=== PATIENT | male | born 1940 | race Caucasian/White ===

== ENCOUNTER → 2019-04-15 | Outpatient (CLI) | payer SELFPAY | PROVIDERS: Family Provider Family Medicine; Visit Provider Urology | DX: I87.8 Other specified disorders of veins (principal); M16.0 Bilateral primary osteoarthritis of hip | CPT/HCPCS: 74018 ==

== ENCOUNTER → 2019-04-23 09:12 | Outpatient (BNVA) | payer MEDICARE, OTHER, SELFPAY | PROVIDERS: Family Provider Family Medicine; PCP Family Medicine; Visit Provider Internal Medicine Cardiovascular Disease | DX: E78.5 Hyperlipidemia, unspecified (principal) | CPT/HCPCS: 80061 ==

== ENCOUNTER → 2019-05-19 16:31 | Outpatient (BNVA) | payer MEDICARE, OTHER, SELFPAY | PROVIDERS: Family Provider Family Medicine; PCP Family Medicine; Visit Provider Family Medicine | DX: M25.512 Pain in left shoulder (principal); M19.012 Primary osteoarthritis, left shoulder | CPT/HCPCS: 73030 ==

== ENCOUNTER → 2019-08-13 11:18 | Outpatient (BNVA) | payer MEDICARE, OTHER, SELFPAY | PROVIDERS: Family Provider Family Medicine; PCP Family Medicine; Visit Provider Family Medicine | DX: E78.2 Mixed hyperlipidemia (principal); I10 Essential (primary) hypertension; E78.5 Hyperlipidemia, unspecified; K21.9 Gastro-esophageal reflux disease without esophagitis; N40.0 Benign prostatic hyperplasia without lower urinary tract symptoms | CPT/HCPCS: 80053; 80061; 85025 ==

== ENCOUNTER → 2020-03-16 09:57 | Outpatient (BNVA) | payer MEDICARE, OTHER, SELFPAY | PROVIDERS: Family Provider Family Medicine; PCP Family Medicine; Visit Provider Family Medicine | DX: I10 Essential (primary) hypertension (principal); E78.2 Mixed hyperlipidemia | CPT/HCPCS: 80053; 80061; 84443; 85025 ==

== ENCOUNTER 2020-07-14 06:00 | Outpatient (RCR) | payer MEDICARE, SELFPAY | END 2020-07-14 23:59 | disposition home or self-care (01) | LOC: TPT 06:00 | PROVIDERS: Family Provider Family Medicine; PCP Family Medicine; Referring Provider Family Medicine; Visit Provider Family Medicine | DX: M54.32 Sciatica, left side (principal) | CPT/HCPCS: 97161 ==

== ENCOUNTER 2020-07-15 06:00 | Outpatient (RCR) | payer MEDICARE, SELFPAY | END 2020-08-04 23:00 | disposition home or self-care (01) | LOC: TPT 06:00 | PROVIDERS: Family Provider Family Medicine; PCP Family Medicine; Referring Provider Family Medicine; Visit Provider Family Medicine | DX: M54.32 Sciatica, left side (principal) | CPT/HCPCS: 97110 ==

== ENCOUNTER → 2020-09-22 10:58 | Outpatient (BNVA) | payer MEDICARE, SELFPAY | PROVIDERS: Family Provider Family Medicine; PCP Family Medicine; Visit Provider Family Medicine | DX: E78.2 Mixed hyperlipidemia (principal); I10 Essential (primary) hypertension; I25.810 Atherosclerosis of coronary artery bypass graft(s) without angina pectoris | CPT/HCPCS: 80053; 80061; 85025 ==

== ENCOUNTER 2020-10-14 08:30 | Outpatient (CLI) | payer MEDICARE, SELFPAY ==
--- NOTE | 2020-10-14 08:45 | XR_ITS ---
WS: [id number] KUB, AP view, 10/14/2020 Clinical Data: HX OF KIDNEY STONES Comparison: KUB, 04/15/2019. Findings: No abnormal intraabdominal masses or calcifications are seen. There is no dilatated small bowel or ev idence of obstruction. There are phleboliths in the true pelvis. There is a large amount of fecal material in the colon which obscures detail over both kidneys. There are right upper quadrant calcifications which are probably gallstones. There are clips overlying the left upper quadrant. There is a tube overlying the T10 vertebral body. Degenerative changes of the l umbar spine are moderate. 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 XR/XR KUB [id number] Impression: Negative for renal or ureteral calculi.
== END 2020-10-14 08:31 | disposition home or self-care (01) ==
PROVIDERS: PCP Family Medicine; Visit Provider Urology
DX: Z87.442 Personal history of urinary calculi (principal)
CPT/HCPCS: 74018

== ENCOUNTER → 2021-01-20 16:19 | Outpatient (BNVA) | payer MEDICARE, SELFPAY | PROVIDERS: PCP Family Medicine; Visit Provider Family Medicine | DX: E78.2 Mixed hyperlipidemia (principal); I10 Essential (primary) hypertension; K21.9 Gastro-esophageal reflux disease without esophagitis; N40.0 Benign prostatic hyperplasia without lower urinary tract symptoms; E78.5 Hyperlipidemia, unspecified; N40.1 Benign prostatic hyperplasia with lower urinary tract symptoms; R33.8 Other retention of urine; Z23 Encounter for immunization | CPT/HCPCS: 80053; 80061; 84443; 85025; G0103 ==

== ENCOUNTER → 2021-08-01 09:23 | Outpatient (BNVA) | payer MEDICARE, SELFPAY | PROVIDERS: PCP Family Medicine; Visit Provider Family Medicine | DX: I10 Essential (primary) hypertension (principal); E78.2 Mixed hyperlipidemia; K21.9 Gastro-esophageal reflux disease without esophagitis; N40.0 Benign prostatic hyperplasia without lower urinary tract symptoms; F32.9 Major depressive disorder, single episode, unspecified; B35.1 Tinea unguium | CPT/HCPCS: 85025 ==

== ENCOUNTER → 2021-08-05 09:41 | Outpatient (BNVA) | payer MEDICARE, SELFPAY | PROVIDERS: PCP Family Medicine; Visit Provider Family Medicine | DX: E78.5 Hyperlipidemia, unspecified (principal); I10 Essential (primary) hypertension | CPT/HCPCS: 80053; 80061; 84443 ==

== ENCOUNTER 2021-10-18 06:00 | Outpatient (CLI) | payer MEDICARE, SELFPAY | END 2021-10-18 06:01 | disposition home or self-care (01) | LOC: RAD 01-23 20:58 | PROVIDERS: PCP Family Medicine; Visit Provider Urology | DX: Z87.442 Personal history of urinary calculi (principal); N40.1 Benign prostatic hyperplasia with lower urinary tract symptoms; R33.8 Other retention of urine | CPT/HCPCS: 74018; 81003; 99213 ==

== ENCOUNTER → 2021-10-18 09:11 | Outpatient (BNVA) | payer MEDICARE, SELFPAY | PROVIDERS: PCP Family Medicine; Visit Provider Urology | DX: N40.1 Benign prostatic hyperplasia with lower urinary tract symptoms (principal); Z87.442 Personal history of urinary calculi; R33.8 Other retention of urine | CPT/HCPCS: 99213 ==

== ENCOUNTER 2021-10-25 09:57 | Outpatient (CLI) | payer MEDICARE, SELFPAY ==
--- NOTE | 2021-10-25 10:16 | XR_ITS ---
WS: [id number] Sacrum and coccyx, 3 views, 10/25/2021 Clinical Data: M54.40 - Lumbago with sciatica, unspecified side Comparison: None. Findings: No fractures or dislocations are seen. The SI joints and pubic symphysis are unremarkable. No bone de struction or erosion is seen. There are phleboliths in the true pelvis. XR/XR sacrum coccyx min 2V 23625 Impression: Negative sacrum and coccyx.
--- NOTE | 2021-10-25 10:16 | XR_ITS ---
WS: [email or web address] Lumbar spine, 3 views, 10/25/2021 Clinical Data: M54.40 - Lumbago with sciatica, unspecified side Comparison: Lumbar spine, 11/29/2015. Findings: No compression fractures or subluxation is seen. No disc space narrowing is seen. The transverse proc esses and SI joints are normal. There is abundant anterior osteoarthritic spurring from the lower thoracic vertebral bodies and L1-L5 . Facet joint arthritis is present at L2-L3 and L5-S1. XR/XR lumbar spine 2-3V* [id number] Impression: 1. Severe osteoarthritis L-1-L5. 2. Facet joint arthritis at multiple levels.
== END 2021-10-25 09:58 | disposition home or self-care (01) ==
PROVIDERS: PCP Family Medicine; Visit Provider Family Medicine
DX: M47.896 Other spondylosis, lumbar region (principal); M54.40 Lumbago with sciatica, unspecified side
CPT/HCPCS: 72100; 72220

== ENCOUNTER 2021-12-02 13:46 | Outpatient (CLI) | payer MEDICARE, SELFPAY ==
--- NOTE | 2021-12-02 15:15 | MR_ITS ---
WS: [email or web address] INDICATION: Low back pain. LEFT hip pain. TECHNIQUE: MRI of the sacrum without gadolinium enhancement. Sagittal T2, coronal T1, coronal STIR, a xial T2, coronal STIR. FINDINGS: Normal bone marrow signal in the sacrum. Normal sacral ala. Normal bone marrow signal sacro coccygeal junction. Enlarged nodular heterogeneous prostate measuring 4.6 x 6.2 x 5.2 cm AP by transv erse by craniocaudal. Prominent bilateral seminal vesicles. Impingement on the bladder with bladder o utlet obstruction. Findings suspicious for neoplasia. Recommend correlation with PSA. MR/MR sacrum wo con* [id number] IMPRESSION: 1. Normal bone marrow signal in the sacrum. Normal sacral ala. No sacral insuf ficiency fractures. 2. Enlarged nodular heterogeneous prostate measuring 4.6 x 6.2 x 5.2 cm AP by transverse by craniocaudal. 3. Evidence of bladder outlet obstruction.
== END 2021-12-02 13:47 | disposition home or self-care (01) ==
PROVIDERS: PCP Family Medicine; Visit Provider Family Medicine
DX: M54.40 Lumbago with sciatica, unspecified side (principal); N40.0 Benign prostatic hyperplasia without lower urinary tract symptoms
CPT/HCPCS: 72148

== ENCOUNTER 2021-12-02 13:46 | Outpatient (CLI) | payer MEDICARE, SELFPAY ==
--- NOTE | 2021-12-02 14:30 | MR_ITS ---
WS: [id number] MRI LUMBAR SPINE NONCONTRAST TECHNIQUE: Sagittal T1, T2 and STIR imaging. Axial T1 and T2 imaging. CLINICAL INFORMATION: M54.40 - Lumbago with sciatica, unspecified side COMPARISON: MRI June 09, 2015 FINDINGS: Mild lumbar curve. No acute compression. Slight anterolisthesis L4 on L5. Moderate central canal sten osis L2-L3 slightly progressed compared to 2016. Small RIGHT synovial cyst contributes to stenosis. L1-L2: Moderate facet arthropathy. Spinal canal and foramen are patent. L2-L3: Mild disc bulging and moderate facet arthropathy. Small RIGHT synovial cyst. Moderate central canal stenosis. Narrowing subarticular recess bilaterally. RIGHT synovial cyst measures 7 mm. Mild RI GHT greater than LEFT foraminal narrowing. L3-L4: Mild disc bulging. Mild facet arthropathy. Mild central canal stenosis. Slight impingement sub articular recess bilaterally. Mild LEFT foraminal narrowing. Tiny annular fissure. Moderate facet art hropathy. L4-L5: Grade 1 anterolisthesis. Moderate to advanced facet arthropathy. Small facet effusions. LEFT h emilaminectomy new from previous. Mild bilateral foraminal narrowing. Tiny LEFT synovial cyst. Mild n arrowing of the subarticular recess bilaterally. L5-S1: Mild annular bulging. Moderate facet arthropathy. Spinal canal and foramen are patent. Visualized pelvic bony structures: Normal. Paravertebral soft tissues: Normal. Small LEFT renal cyst MR/MR lumbar spine wo con* [id number] IMPRESSION: 1. Mild lumbar curve. No acute compression. 2. Moderate central canal stenosis L2-L3 with a tiny RIGHT synovial cyst progr essed compared to previous. 3. Laminectomy defects L4-L5 with spinal canal decompression is new from previ ous. 4. Moderate to advanced facet arthropathy L4-L5 and L5-S1. 5. Mild central canal stenosis L3-L4. This is slightly progressed compared to previous.
== END 2021-12-02 13:47 | disposition home or self-care (01) ==
PROVIDERS: PCP Family Medicine; Visit Provider Family Medicine
DX: M54.40 Lumbago with sciatica, unspecified side (principal); M48.061 Spinal stenosis, lumbar region without neurogenic claudication; M47.816 Spondylosis without myelopathy or radiculopathy, lumbar region; M96.1 Postlaminectomy syndrome, not elsewhere classified; N40.0 Benign prostatic hyperplasia without lower urinary tract symptoms
CPT/HCPCS: 72148

== ENCOUNTER → 2021-12-13 10:19 | Outpatient (BNVA) | payer MEDICARE, SELFPAY | PROVIDERS: PCP Family Medicine; Visit Provider Orthopaedic Surgery | DX: M48.062 Spinal stenosis, lumbar region with neurogenic claudication (principal); M47.812 Spondylosis without myelopathy or radiculopathy, cervical region | CPT/HCPCS: 72120; 99204 ==

== ENCOUNTER 2021-12-30 06:02 | Day surgery (SDC) | payer MEDICARE, SELFPAY ==
--- NOTE | 2021-12-28 09:03 | ECG_ITS ---
[facility] Test Date: 2021-12-28 Pat Name: Carlo Dalton Department: Room: Gender: Male Ophthalmic Aide: : 1940 Requested By: Natali Ralph Order Number: [id number] Josiah MD: Humberto Prince M.D. Measurements Intervals [place] Rate: 66 P: 35 MO: 120 QRS: -39 QRSD: 99 T: 10 QT: 383 QTc: 402 Interpretive Statements SINUS RHYTHM WITH OCCASIONAL SUPRAVENTRICULAR PREMATURE COMPLEXES POSSIBLE ANTERIOR MYOCARDIAL INFARCTION , OF INDETERMINATE AGE [30 ms Q WAVE IN V3/V4, OR R < 0.2 mV IN V4] INFERIOR MYOCARDIAL INFARCTION , PROBABLY OLD [40+ ms Q WAVE AND/OR ST/T ABNORMALITY IN II/aVF] Compared to ECG 08/09/2018 16:04:28 Myocardial infarct finding now present Sinus bradycardia no longer present Left-axis deviation no longer present Electronically Signed On 12-29-2021 10:43:39 CDT by Humberto Prince M.D. [id number]
[2021-12-28 09:33] LABS: Blood Urea Nitrogen 20 mg/dL (8-23); Carbon Dioxide 24 mmol/L (22-29); Chloride 108 mmol/L (98-107); Glucose 104 mg/dL (65-115); Osmolality Calculated 299 mOsm/kg (285-295); Sodium 143 mmol/L (136-145)
--- NOTE | 2021-12-28 15:55 | ANES.PREANE2 ---
Pre-Anesthetic Assessment Height/Weight: Height 1.83 m Weight 111.13 kg Preop Diagnosis: Lumbar stenosis Operation Date: 12/30/21 10:00 Proposed Procedures p Lumbar Spine Decompression L3/4 L4/5 86930/49372/M48.062(Not Applicable) - Shahab Morales, Familial anesthetic complications: None Was Beta Stephon taken within 24 hours: N/A Was Clonidine taken within 24 hours: N/A Social No alcohol and No tobacco Exam alert, oriented x 3, clear to auscultation bilaterally and regular rate & rhythm Airway Submandibular: within normal limits Cervical ROM: Other (Very limited neck ROM in extension/flexion and rotation ) Mallampati: Class II Dentition: chipped Comments: Comments: Missing teeth Deviated septum Pulmonary None reported CV/HEM Arrythmia (Bradyarrythmia ), Coronary Artery Disease and Hypertension S/P CABG 2008 METS = 4 BPH Nephrolithiasis Hepatic None reported GI Gastroesophageal Reflux Disease (Well Controlled ) Musc/skel Lower Back Pain and Osteoarthritis/DJD Lumbar stenosis Neuropsych None reported Anesthetic Plan ASA status: 3 Anesthesia: Anesthesia Evaluation and General Other: We discussed risk and benefits of general anesthesia including PONV, sore throat (sometimes severe), corneal abrasion, positioning and peripheral nerve injuries, life threatening allergic reaction, post operative ICU admission requiring prolonged intubation, post operative blindness, aspiration, stroke, heart attack, , and rare incidences of recall. Patient consents to proceed with general anesthesia. Plan GETA, possible arterial line Risk of > 500 ml blood loss (7ml/kg in children): No Medications/Allergies Home Medications Medication Instructions Recorded Confirmed Last Taken Type nitroglycerin 0.4 mg sublingual 0.4 mg sublingual Q5M PRN chest 02/16/20 12/28/21 Unknown Rx tablet (Nitrostat) pain #90 tabs cholecalciferol (vitamin D3) 125 125 mcg PO DAILY 04/25/21 12/28/21 Unknown History mcg (5,000 unit) capsule vit C,E,zinc,copper-zvmoz5v 250 1 cap PO DAILY 04/25/21 12/28/21 Unknown History mg-lutein 5 mg-zeaxanthin 1 mg capsule (Ocuvite Adult 50 Plus) atorvastatin 40 mg tablet See Rx Instructions .Route 07/08/21 12/28/21 Unknown Rx .COMPLEX #90 tabs famotidine 20 mg tablet See Rx Instructions .Route 10/10/21 12/28/21 Unknown Rx .COMPLEX #180 tabs ascorbic acid (vitamin C) 1,000 mg 1 g PO DAILY 10/18/21 12/28/21 Unknown History tablet lisinopril 20 mg tablet 20 mg PO DAILY #90 tabs 10/18/21 12/28/21 Unknown Rx zinc acetate 25 mg (zinc) capsule 50 mg PO DAILY 10/18/21 12/28/21 Unknown History clopidogrel 75 mg tablet 75 mg PO DAILY 12/28/21 12/28/21 12/24/21 History fenofibrate nanocrystallized 145 145 mg PO DAILY 12/28/21 12/28/21 Unknown History mg tablet finasteride 5 mg tablet 5 mg PO BID 12/28/21 12/28/21 Unknown History fluvoxamine 100 mg tablet 100 mg PO TID 12/28/21 12/28/21 Unknown History folic acid-vit B6-vit B12 2.5 1 tab PO DAILY 12/28/21 12/28/21 Unknown History mg-25 mg-1 mg tablet (Folbee) tamsulosin 0.4 mg capsule 0.4 mg PO BID 12/28/21 12/28/21 Unknown History Allergies Allergy/AdvReac Type Severity Reaction Status Date / Time No Known Allergies Allergy Verified 12/13/21 10:03 [facility] Anesthesia Medical History Arthritis Atherosclerotic heart disease Benign prostate hyperplasia Benign prostatic hyperplasia with urinary retention Bradyarrhythmia Cataract right 2013 Degenerative lumbar spinal stenosis Depression GERD (gastroesophageal reflux disease) History of kidney stones Hyperlipidemia The EKG from last visit revealed ectopic atrial rhythm with a rate of [address]-T changes. Slightly prominent U waves. Hypertension Incomplete bladder emptying Increased prostate specific antigen (PSA) velocity Macrocytosis without anemia Orthostatic hypotension Ventricular arrhythmia Surgical History H/O laminectomy 2015 H/O shoulder surgery 2010, 2013 History of tonsillectomy Hx of CABG 2008 Family History Mother Heart disease Chronic kidney disease (CKD) Grandmother CAD (coronary artery disease) Stroke Grandfather Lung disease Family/Other Lung disease Denies family history of Diabetes Clotting disorder Dementia Suicide Anesthesia complication Bleeding disorder Cancer Social History Smoking and tobacco status: never smoked Alcohol intake: never Household members: spouse Housing: House Marital status: service: Yes Current occupational status: retired Current gender identity: Male Data Anesthesia : 12/28/21 08:53 BMP 12/28/21 08:53 Sodium 143 Potassium 4.0 Chloride 108 H Carbon Dioxide 24 BUN 20 Creatinine 1.1 Glucose 104 Calcium 9.0 Cardiac Studies: No Data to Display
[2021-12-30] VITALS (7 sets, daily range): BP systolic 110–140; BP diastolic 60–86; PULSE 62–89; RESP 15–20; TEMP 36.3–36.8; O2SAT 94–97
--- NOTE | 2021-12-30 | SCC_ITS ---
Procedure done: 1. L3/4 laminectomy with partial facetectomy 2. L4/5 laminectomy with partial facetectomy 31.0 seconds of fluoroscopic guidance, for a cumulative dose of 28.35 mGy, was provided to Dr. Morales by the radiology department. C-arm images of the lumbar spine were saved for the patient's permanent record. [facility]
--- NOTE | 2021-12-30 | XR_ITS ---
WS: [id number] Lumbar spine, C-arm fluoroscopy, 12/30/2021 Clinical Data: L3-L4, L4-L5 decompression Comparison: Lateral lumbar spine, 12/13/2021. Findings: Dr. Morales performed a posterior lumbar decompression XR/XR lumbar spine 1V [id number] Impression: Lumbar decompression.
[2021-12-30] MEDS: sodium chloride 0.9% 1,000 ML 30 ML IV (06:32)
[2021-12-30 06:56] LABS: Basophils # 0.1 10^3/uL (0.0-0.1); Basophils % 0.9 %; Eosinophils # 0.3 10^3/uL (0.0-0.8); Eosinophils % 3.2 %; Hematocrit 44.1 % (42.0-52.0); Hemoglobin 14.9 g/dL (11.7-16.6); Lymphocytes # 2.4 10^3/uL (0.8-4.8); Lymphocytes % 25.2 %; Mean Corpuscular HGB Conc 33.8 g/dL (30.0-36.0); Mean Corpuscular Hemoglobin 34.2 pg (28.0-34.0); Mean Corpuscular Volume 101.1 fl (80-94); Mean Platelet Volume 11.4 fL (7.4-10.4); Monocytes % 10.4 %; Neutrophils # 5.68 10^3/uL (1.8-7.7); Nucleated Red Blood Cells % 0 %; Platelet Count 240 10^3/cmm (130-400); Red Blood Count 4.36 10^6/uL (4.1-5.3); Red Cell Distribution Width 14.3 % (12.1-15.1); White Blood Count 9.5 10^3/uL (4.0-10.0)
[2021-12-30] MEDS: ceFAZolin 2,000 MG in sodium chloride 0.9% (plus) 50 ML 100 MG IV (08:44)
--- NOTE | 2021-12-30 08:53 | W.PM.OPSUD ---
Surgery/Procedure H&P Update DATE OF PROCEDURE: December 30, 2021 DATE H&P PERFORMED: 12/13/21 H&P UPDATE INFORMATION: I have reviewed H&P completed within last 30 days, I have examined patient prior to procedure and No changes to prior documentation PREOP DIAGNOSIS: Lumbar stenosis with neurogenic claudication PLANNED PROCEDURE: Operation Date: 12/30/21 08:00 Proposed Procedures p Lumbar Spine Decompression L3/4 L4/5 04279/91407/M48.062(Not Applicable) - Shahab Morales DO
[2021-12-30] MEDS: thrombin 5,000 unit SDV 5000 UNIT XX (09:14)
--- NOTE | 2021-12-30 10:10 | PM.OP ---
Operative Report Date of procedure: December 30, 2021 Pre-op diagnosis: Preop Diagnosis Lumbar stenosis with neurogenic claudication Post-op diagnosis: same Procedure done: 1. L3/4 laminectomy with partial facetectomy 2. L4/5 laminectomy with partial facetectomy Surgeon: Shahab Morales Rubber Covering Machine Operator: Gilberto Keller Estimated blood loss (mL): 5 Procedure: 1. L3/4 laminectomy with partial facetectomy 2. L4/5 laminectomy with partial facetectomy Patient is brought to the operative suite. After undergoing anesthesia they are placed in the prone position. All areas of impingement are well padded. Patient is then prepped and draped in the normal sterile fashion. A skin incision is made over the L3-4 level. This is confirmed under c-arm guidance. A series of dilators are passed and the tubular retractor is docked on the L 3 lamina. A bovie is used to clear the soft tissue off the lamina and the L 3/4 facet joint. A high speed sumanth is then used to perform the laminectomy and take down the medial aspect of the L 3/4 facet joint. A kerrison rongeure was then used to take down the remaining lamina and smooth the edge of the laminectomy up to the point where the ligamentum flavum attaches. Attention was then brought to the medial aspect of the facet joint. The remaining medial aspect of the superior and inferior aspect of the facet joint were taken down with the kerrison from the pedicle of L 3 to L 4. The facet joint had significant hypertrophy. Attention was then brought to the Ligamentum Flavum. The ligament was taken down. The ligament was very thick and scarred. The dura was then exposed. The dura was in good repair. The L 3 nerve was then traced with a curette out the L 3/4 foramen and found to be adequately decompressed. The L 4 nerve was traced with a curette around the L 4 pedicle. The lateral recess was opened with a kerrison helping to further decompress the L 4 nerve. Wound is then irrigated copiously with saline and surgiflo is used to stop any bleeding. The tubular retractor is removed and the A skin incision is made over the L4/5 level. This is confirmed under c-arm guidance. A series of dilators are passed and the tubular retractor is docked on the L 4 lamina. A bovie is used to clear the soft tissue off the lamina and the L 4/5 facet joint. A high speed sumanth is then used to perform the laminectomy and take down the medial aspect of the L 4/5 facet joint. A kerrison rongeure was then used to take down the remaining lamina and smooth the edge of the laminectomy up to the point where the ligamentum flavum attaches. Attention was then brought to the medial aspect of the facet joint. The remaining medial aspect of the superior and inferior aspect of the facet joint were taken down with the kerrison from the pedicle of L 4 to L 5. The facet joint had significant hypertrophy. Attention was then brought to the Ligamentum Flavum. The ligament was scarred down to the dura the ligament was thickened and scarred. The dura was then exposed. The dura was in good repair. The L 4 nerve was then traced with a curette out the L 4/5 foramen and found to be adequately decompressed. The L 5 nerve was traced with a curette around the L 5 pedicle. The lateral recess was opened with a kerrison helping to further decompress the L 5 nerve. Wound is then irrigated copiously with saline and surgiflo is used to stop any bleeding. The tubular retractor is removed and the wound is closed with vicryl and monocryl suture. Glue is then used to protect the wound. A sterile dressing is then placed. Patient was then placed in the supine position and transferred to the PACU in stable condition.
--- NOTE | 2021-12-30 13:45 | ANE.PACU2 ---
Inpatient post-anesthesia follow up: Airway intact: Yes Vital signs: Temperature 97.4 F Pulse Rate 65 Respiratory Rate 18 Blood Pressure 129/60 Pulse Oximetry 95 Oxygen Delivery Me thod Room Air Oxygen Flow Rate Fraction of Inspir ed Oxygen Hydration adequate: Yes Nausea and vomiting: No Pain level: 1 Mental status: Baseline
== END 2021-12-30 11:05 | disposition home or self-care (01) ==
PROVIDERS: Anesthesiology; PCP Family Medicine; Visit Provider Orthopaedic Surgery
PROC: (CPT 63005; principal; 2021-12-30 07:50)
DX: M48.062 Spinal stenosis, lumbar region with neurogenic claudication (principal); Z95.1 Presence of aortocoronary bypass graft; I25.10 Atherosclerotic heart disease of native coronary artery without angina pectoris; I10 Essential (primary) hypertension; M19.90 Unspecified osteoarthritis, unspecified site; N40.1 Benign prostatic hyperplasia with lower urinary tract symptoms; N13.8 Other obstructive and reflux uropathy; K21.9 Gastro-esophageal reflux disease without esophagitis
CPT/HCPCS: 63047; 63048; 72020; 76000; 80048; 85025; 93005; J1100; J2405; J2710; J3010; J3490; J7030

== ENCOUNTER → 2022-01-12 13:55 | Outpatient (BNVA) | payer MEDICARE, SELFPAY | PROVIDERS: PCP Family Medicine; Visit Provider Orthopaedic Surgery | DX: Z47.89 Encounter for other orthopedic aftercare (principal) | CPT/HCPCS: 99024 ==

== ENCOUNTER → 2022-02-03 12:53 | Outpatient (BNVA) | payer MEDICARE, SELFPAY | PROVIDERS: PCP Family Medicine; Visit Provider Family Medicine | DX: I10 Essential (primary) hypertension (principal); Z12.5 Encounter for screening for malignant neoplasm of prostate; I25.810 Atherosclerosis of coronary artery bypass graft(s) without angina pectoris | CPT/HCPCS: 80061; G0103 ==

== ENCOUNTER → 2022-02-09 12:50 | Outpatient (BNVA) | payer MEDICARE, SELFPAY | PROVIDERS: PCP Family Medicine; Visit Provider Orthopaedic Surgery | DX: Z47.89 Encounter for other orthopedic aftercare (principal) | CPT/HCPCS: 99024 ==

== ENCOUNTER → 2022-03-21 14:29 | Outpatient (BNVA) | payer MEDICARE, SELFPAY | PROVIDERS: PCP Family Medicine; Visit Provider Nurse Practitioner Family | DX: I25.810 Atherosclerosis of coronary artery bypass graft(s) without angina pectoris (principal); I10 Essential (primary) hypertension; Z95.1 Presence of aortocoronary bypass graft | CPT/HCPCS: 99214 ==

== ENCOUNTER → 2022-03-23 10:22 | Outpatient (BNVA) | payer MEDICARE, SELFPAY | PROVIDERS: PCP Family Medicine; Visit Provider Orthopaedic Surgery | DX: Z47.89 Encounter for other orthopedic aftercare (principal) | CPT/HCPCS: 99024 ==

== ENCOUNTER → 2022-08-21 09:15 | Outpatient (BNVA) | payer MEDICARE, SELFPAY | PROVIDERS: PCP Family Medicine; Visit Provider Family Medicine | DX: E78.5 Hyperlipidemia, unspecified (principal); I10 Essential (primary) hypertension; F32.9 Major depressive disorder, single episode, unspecified; I25.810 Atherosclerosis of coronary artery bypass graft(s) without angina pectoris | CPT/HCPCS: 80053; 80061; 84443; 85025 ==

== ENCOUNTER → 2022-09-07 14:26 | Outpatient (BNVA) | payer MEDICARE, SELFPAY | PROVIDERS: PCP Family Medicine; Visit Provider Family Medicine | DX: R05.9 Cough, unspecified (principal); Z20.822 Contact with and (suspected) exposure to COVID-19 | CPT/HCPCS: 87426 ==

== ENCOUNTER 2022-09-10 17:07 | Observation (INO) | payer MEDICARE, SELFPAY ==
[2022-09-10] VITALS (34 sets, daily range): BP systolic 107–136; BP diastolic 54–75; PULSE 52–94; RESP 16–21; TEMP 36.6; O2SAT 90–96; BMI 31.8
--- NOTE | 2022-09-10 17:10 | XRR_ITS ---
PROCEDURE INFORMATION: Exam: XR Chest Exam date and time: 09/10/2022 5:54 PM Age: 82 years old Clinical indication: Shortness of breath; Additional info: SOB TECHNIQUE: Imaging protocol: Radiologic exam of the chest. Views: 1 view. COMPARISON: CR XR chest 1V [id number] 08/09/2018 10:38 AM FINDINGS: Lungs: Unremarkable. No consolidation. Pleural spaces: Unremarkable. No pleural effusion. No pneumothorax. Heart/Mediastinum: Cardiomegaly. Bones/joints: Sternotomy wires. XR/XR chest 1V portable [id number] IMPRESSION: 1. Cardiomegaly. 2. Negative for infiltrate.
[2022-09-10 17:42] LABS: Basophils # 0.1 10^3/uL (0.0-0.1); Basophils % 0.6 %; Eosinophils # 0.5 10^3/uL (0.0-0.8); Eosinophils % 5.3 %; Hematocrit 41.3 % (42.0-52.0); Hemoglobin 13.6 g/dL (11.7-16.6); Lymphocytes % 21.9 %; Mean Corpuscular HGB Conc 32.9 g/dL (30.0-36.0); Mean Corpuscular Hemoglobin 33.5 pg (28.0-34.0); Mean Corpuscular Volume 101.7 fl (80-94); Mean Platelet Volume 11.2 fL (7.4-10.4); Monocytes # 1.4 10^3/uL (0.2-0.9); Monocytes % 15.2 %; Neutrophils # 5.27 10^3/uL (1.8-7.7); Neutrophils % 56.5 %; Nucleated Red Blood Cells % 0 %; Platelet Count 262 10^3/cmm (130-400); Red Blood Count 4.06 10^6/uL (4.1-5.3); Red Cell Distribution Width 14.6 % (12.1-15.1); White Blood Count 9.3 10^3/uL (4.0-10.0)
--- NOTE | 2022-09-10 17:59 | ED_ITS ---
HPI - SOB/Dyspnea General: Chief Complaint: Shortness of Breath/Dyspnea Stated Complaint: sob, cough, fever Time Seen by Provider: 09/10/22 17:59 History of Present Illness: HPI Narrative: Mr. Dalton is an 82-year-old gentleman with significant past medical history of hypertension, hyperlipidemia, CAD presenting to the emergency department for evaluation of shortness of breath cough. He notes onset of symptoms approximately 1 week ago without known specific provoking event. He reports worsening symptoms since that time with productive cough, nasal congestion, shortness of breath, generalized malaise. He was seen by PCP 3 days ago and given a steroid injection and started on Levaquin however despite this patient has not had significant improvement. Moderate intensity symptoms have become severe with exertion. Denies underlying lung disease or smoking history. No other specific changes in health, exacerbating, or alleviating factors identifi ed. Onset (ago): day(s) Timing: progressively worsening Severity: moderate Exacerbating factors: lying flat, exertion and coughing Relieving factors: nothing Associated symptoms: Reports chest congestion and cough Review of Systems General: Reports: 10 or more systems reviewed and unremarkable except in HPI and below Resp: Reports: chest congestion [facility] ED PFSH: Medical History Arthritis Atherosclerotic heart disease Benign prostate hyperplasia Benign prostatic hyperplasia with urinary retention Bradyarrhythmia Cataract right 2013 Degenerative lumbar spinal stenosis Depression GERD (gastroesophageal reflux disease) History of kidney stones Hyperlipidemia The EKG from last visit revealed ectopic atrial rhythm with a rate of [address]-T changes. Slightly prominent U waves. Hypertension Incomplete bladder emptying Increased prostate specific antigen (PSA) velocity Macrocytosis without anemia Orthostatic hypotension Ventricular arrhythmia Surgical History H/O laminectomy 2015 H/O shoulder surgery 2010, 2013 History of tonsillectomy Hx of CABG 2008 Family History Mother Heart disease Chronic kidney disease (CKD) Grandmother CAD (coronary artery disease) Stroke Grandfather Lung disease Family/Other Lung disease Denies family history of Diabetes Clotting disorder Dementia Suicide Anesthesia complication Bleeding disorder Cancer Social History Smoking and tobacco status: never smoked Alcohol intake: never Substance/Drug Use: never Household members: spouse Housing: House Marital status: service: Yes Current occupational status: retired Do you think of yourself as: Straight/Heterosexual Current gender identity: Male Physical Exam Const: COMMON NORMALS: alert GENERAL APPEARANCE: cooperative and well developed HENMT: COMMON NORMALS: normocephalic and atraumatic HEAD & SCALP: normocephalic and atraumatic Eye: COMMON NORMALS: conjunctivae normal CONJUNCTIVA: Yes conjunctivae normal SCLERA: sclerae normal Neck/C-Spine: COMMON NORMALS: supple GENERAL: Yes trachea midline Resp: EFFORT & INSPECTION: Yes able to speak in complete sentences AUSCULTATION: wheezes and diminished lung sounds Cardio: COMMON NORMALS: regular rate and regular rhythm RATE: regular rate RHYTHM: regular rhythm GI: COMMON NORMALS: Soft to palpation PALPATION: Yes Soft to palpation and No Tenderness to palpation present (GI) PERCUSSION: normal to percussion Extremity: GENERAL: Yes normal exam except as noted and Yes edema Neuro: COMMON NORMALS: moves all extremities SENSORIUM/ORIENTATION: Yes alert and No Orientation impaired Psych: COMMON NORMALS: mental status grossly normal and Normal thought process present THOUGHT PROCESS: Normal thought process present Course Vital Signs: Vital signs: Vital Signs Temperature 98.7 F 09/11/22 00:04 Pulse Rate 81 09/11/22 01:26 Respiratory Rate 20 H 09/11/22 00:04 Blood Pressure 143/65 09/11/22 00:04 Pulse Oximetry 94 09/11/22 01:26 Oxygen Delivery Me thod Room Air 09/11/22 00:04 MDM - SOB/Dyspnea Medical Decision Making 82-year-old gentleman presenting to the emergency department for shortness of breath and respiratory symptoms. Exam as above with wheezing and diminished breath sounds, patient is nontoxic in appearance. EKG demonstrates sinus rhythm with occasional PACs, left axis deviation, normal intervals, no STEMI. Labs notable for no leukocytosis, normal hemoglobin and platelet count. Metabolic panel without significant derangement. Positive range 2-hour delta troponin. Negative procalcitonin. Viral panel is pending. Chest x-ray with cardiomegaly, no lobar consolidation or pneumothorax. During ED course patient treated with RT treatment, steroids, and aspirin. Most likely etiology of patient's symptoms is NSTEMI secondary to respiratory illness that given positive range 2-hour delta troponin patient requires further inpatient trending and management. The results of ED evaluation were discussed with the patient including plan for admission due to requirement for level of care not available if discharged to prevent significant worsening/deterioration. Patient agreeable with plan. Discussed with hospitalist service who was agreeable to admit patient. Medical Records I reviewed the patient's medical records. Lab Data I reviewed the patient's lab results. 09/10/22 17:20 09/10/22 17:20 Labs/Radiology: Radiology Impressions Chest X-Ray 09/10/22 17:10 IMPRESSION: 1. Cardiomegaly. 2. Negative for infiltrate. Laboratory Results WBC 9.3 10^3/uL (4.0-10.0) 09/10/22 17:20 RBC 4.06 10^6/uL (4.1-5.3) L 09/10/22 17:20 Hgb 13.6 g/dL (11.7-16.6) 09/10/22 17:20 Hct 41.3 % (42.0-52.0) L 09/10/22 17:20 MCV 101.7 fl (80-94) H 09/10/22 17:20 MCH 33.5 pg (28.0-34.0) 09/10/22 17:20 MCHC 32.9 g/dL (30.0-36.0) 09/10/22 17:20 RDW 14.6 % (12.1-15.1) 09/10/22 17:20 Plt Count 262 10^3/cmm (130-400) 09/10/22 17:20 MPV 11.2 fL (7.4-10.4) H 09/10/22 17:20 Neut % (Auto) 56.5 % 09/10/22 17:20 Lymph % (Auto) 21.9 % 09/10/22 17:20 [place] % (Auto) 15.2 % 09/10/22 17:20 Eos % (Auto) 5.3 % 09/10/22 17:20 Baso % (Auto) 0.6 % 09/10/22 17:20 Neut # (Auto) 5.27 10^3/uL (1.8-7.7) 09/10/22 17:20 Lymph # (Auto) 2.0 10^3/uL (0.8-4.8) 09/10/22 17:20 [place] # (Auto) 1.4 10^3/uL (0.2-0.9) H 09/10/22 17:20 Eos # (Auto) 0.5 10^3/uL (0.0-0.8) 09/10/22 17:20 Baso # (Auto) 0.1 10^3/uL (0.0-0.1) 09/10/22 17:20 Nucleated RBC % (auto) 0 % 09/10/22 17:20 Nucleated RBCs # 0.0 /100WBC 09/10/22 17:20 Sodium 141 mmol/L (136-145) 09/10/22 17:20 Potassium 4.3 mmol/L (3.5-5.1) 09/10/22 17:20 Chloride 108 mmol/L (98-107) H 09/10/22 17:20 Carbon Dioxide 26 mmol/L (22-29) 09/10/22 17:20 Anion Gap 11.3 (5-19) 09/10/22 17:20 BUN 18 mg/dL (8-23) 09/10/22 17:20 Creatinine 1.1 mg/dL (0.7-1.2) 09/10/22 17:20 GFR Calculation Not Reportable 09/10/22 17:20 Glucose 99 mg/dL (65-115) 09/10/22 17:20 Calculated Osmolality 294 mOsm/kg (285-295) 09/10/22 17:20 Calcium 8.6 mg/dL (8.5-10.5) 09/10/22 17:20 Total Bilirubin 0.5 mg/dL (0.15-1.2) 09/10/22 17:20 AST 25 U/L (0-40) 09/10/22 17:20 ALT 20 U/L (0-41) 09/10/22 17:20 Alkaline Phosphatase 80 U/L (40-130) 09/10/22 17:20 Troponin T Baseline 6 ng/L (0-15) 09/10/22 17:20 Troponin T 120 Minute 19.57 ng/L (0-15) H 09/10/22 20:06 Delta Troponin T 13.57 ABS# (0-10) H* 09/10/22 20:06 C-Reactive Protein 3.0 mg/L (0.0-4.9) 09/10/22 17:20 NT-Pro-B Natriuret Pep 437 pg/mL (0-450) 09/10/22 17:20 Total Protein 6.0 g/dL (6.6-8.7) L 09/10/22 17:20 Albumin 3.2 g/dL (3.5-5.2) L 09/10/22 17:20 Globulin 2.8 g/dL (1.3-4.6) 09/10/22 17:20 Procalcitonin 0.06 ng/mL (0-0.5) 09/10/22 17:20 Nasal Influ A H1 2008 PCR Not detected (NOT DETECT) 09/10/22 22:32 Adenovirus (PCR) Not detected (NOT DETECT) 09/10/22 22:32 C. pneumoniae DNA (PCR) Not detected (NOT DETECT) 09/10/22 22:32 Coronavirus 229E (PCR) Not detected (NOT DETECT) 09/10/22 22:32 Human Metapneumovir PCR Not detected (NOT DETECT) 09/10/22 22:32 Influenza A (H1) PCR Not detected (NOT DETECT) 09/10/22 22:32 Influenza A (H3) PCR Not detected (NOT DETECT) 09/10/22 22:32 Influenza Type A (PCR) Not detected (NOT DETECT) 09/10/22 22:32 Influenza Type B (PCR) Not detected (NOT DETECT) 09/10/22 22:32 M. pneumoniae (PCR) Not detected (NOT DETECT) 09/10/22 22:32 Parainfluenza 1 (PCR) Not detected (NOT DETECT) 09/10/22 22:32 Parainfluenza 2 (PCR) Not detected (NOT DETECT) 09/10/22 22:32 Parainfluenza 3 (PCR) Not detected (NOT DETECT) 09/10/22 22:32 Parainfluenza 4 (PCR) Not detected (NOT DETECT) 09/10/22 22:32 RSV Type A (PCR) Not detected (NOT DETECT) 09/10/22 22:32 RSV Type B (PCR) Not detected (NOT DETECT) 09/10/22 22:32 Entero/Rhino (PCR) Detected (NOT DETECT) A 09/10/22 22:32 SARS-CoV-2 (PCR) Not detected (NOT DETECT) 09/10/22 22:32 SARS-CoV-2 Ag (Rapid) negative (Negative) 09/10/22 18:06 Discharge Plan Discharge Patient Disposition: Placed in Observation Admit Provider: Ashley Bui Clinical Impression: Acute non-ST elevation myocardial infarction (NSTEMI), Viral pneumonia Coding Level of Care Code 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
--- NOTE | 2022-09-10 18:06 | ECG_ITS ---
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 Measurements Intervals [place] Rate: 66 P: 18 [place]: 147 QRS: -30 QRSD: 96 T: 33 QT: 379 QTc: 397 Interpretive Statements SINUS RHYTHM WITH OCCASIONAL SUPRAVENTRICULAR PREMATURE COMPLEXES BORDERLINE LEFT AXIS DEVIATION [QRS AXIS < -20] Compared to ECG 12/28/2021 09:03:50 Myocardial infarct finding no longer present Electronically Signed On 09-11-2022 23:30:24 CDT by Humberto Prince M.D. [id number]
[2022-09-10 18:18] LABS: Alanine Aminotransferase 20 U/L (0-41); Albumin Level 3.2 g/dL (3.5-5.2); Alkaline Phosphatase 80 U/L (40-130); Anion Gap 11.3 (5-19); Aspartate Amino Transferase 25 U/L (0-40); Blood Urea Nitrogen 18 mg/dL (8-23); Calcium 8.6 mg/dL (8.5-10.5); Carbon Dioxide 26 mmol/L (22-29); Chloride 108 mmol/L (98-107); Globulin 2.8 g/dL (1.3-4.6); Glucose 99 mg/dL (65-115); NT Pro B Type Natriuretic Pept 437 pg/mL (0-450); Osmolality Calculated 294 mOsm/kg (285-295); Potassium 4.3 mmol/L (3.5-5.1); Sodium 141 mmol/L (136-145); Total Bilirubin 0.5 mg/dL (0.15-1.2)
[2022-09-10] MEDS: ipratropium-albuterol 3 mL Neb INHALATION (18:20)
[2022-09-10 18:46] LABS: SARS Covid-2 Antigen negative (Negative)
[2022-09-10 19:07] LABS: Troponin(5th) Baseline 6 ng/L (0-15)
[2022-09-10 19:10] LABS: Procalcitonin 0.06 ng/mL (0-0.5)
[2022-09-10] MEDS: albuterol 2.5 mg/3 mL Neb INHALATION (20:27)
[2022-09-10 21:08] LABS: Troponin 5 2HR 19.57 ng/L (0-15)
--- NOTE | 2022-09-10 21:08 | ECG_ITS ---
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 Measurements Intervals [place] Rate: 82 P: 35 NE: 141 QRS: -29 QRSD: 94 T: 56 QT: 358 QTc: 418 Interpretive Statements SINUS RHYTHM WITH OCCASIONAL SUPRAVENTRICULAR PREMATURE COMPLEXES BORDERLINE LEFT AXIS DEVIATION [QRS AXIS < -20] Compared to ECG 09/10/2022 18:25:53 No significant changes Electronically Signed On 09-12-2022 8:34:37 CDT by Humberto Prince M.D. [id number]
[2022-09-10 21:10] LABS: Troponin 5 2HR Delta 13.57 ABS# (0-10)
[2022-09-10] MEDS: predniSONE 20 mg Tablet 60 MG PO (21:13)
[2022-09-10] MEDS: aspirin 81 mg Chew Tablet 324 MG PO (21:54)
--- NOTE | 2022-09-10 22:47 | P.HP_ITS ---
Providers/Chief Complaint Primary Care Provider: Katy Gustafson MD Chief Complaint: sob, cough, fever History of Present Illness Carlo Dalton is a 82 year old male With past medical history of CABG, hyperl ipidemia, hypertension, coronary artery disease, GERD, kidney stones, orthostatic hypotension, arrhythmia, BPH presented to the hospital today for complaint of shortness of breath and cough. He says this started about a week ago as he attended a baby shower where 70-80 people attended and it was a large crowd. He states [place] away [place] and sleeping he has been sick since the next day. This has been about a week at this point. He has been having productive cough nasal congestion shortness of breath and generalized ill feeling. He went to see his primary care doctor a few days ago and was started on an antibiotic and was also given a steroid shot at that appointment. He states he is not feeling better. He presented to the ER because his shortness of breath has worsened especially with exertion. He states at baseline he always has shortness of breath on exertion. When he does even a little bit he gets short of breath. He says usually he stops doing what he is doing. He is bringing up clear sputum and at times yellow-green in color.. He is not a smoker. He has not noticed a fever at home. In ER blood pressure 117/70, respirate 16, pulse 60, temperature 97.9, saturating 96% on room air. Chest x-ray shows cardiomegaly but negative for infiltrate, WBC 9.3, hemoglobin 13.6, platelets 262, sodium 141, potassium 4.3, creatinine 1.1. Initial troponin 6, 6-hour delta troponin 15.0. CRP 3, BNP 437, albumin 3.2 respiratory viral panel completed which is positive for Enterra rhinovirus at this time. EKG did not show any acute ischemic changes. Blood cultures were obtained in the ER. Patient was given chewable aspirin initially, DuoNeb, prednisone 60x1. Hospitalist was called for admission. Patient had no known history of heart failure and is not on a diuretic at home. He follows with Dr. Degroot for cardiology and most recently saw cardiology in March he was asked to follow- up in 6 months. Patient is to continue on statin Plavix lisinopril. Medications/Allergies Home Medications Medication Instructions Recorded Confirmed Last Taken Type nitroglycerin 0.4 mg sublingual 0.4 mg sublingual Q5M PRN chest 02/16/20 09/07/22 Unknown Rx tablet (Nitrostat) pain #90 tabs cholecalciferol (vitamin D3) 125 125 mcg PO DAILY 04/25/21 09/07/22 12/29/21 History mcg (5,000 unit) capsule vit C,E,zinc,copper-xpsoj9k 250 1 cap PO DAILY 04/25/21 09/07/22 12/29/21 History mg-lutein 5 mg-zeaxanthin 1 mg capsule (Ocuvite Adult 50 Plus) ascorbic acid (vitamin C) 1,000 mg 1 g PO DAILY 10/18/21 09/07/22 12/29/21 History tablet hydrocodone 5 mg-acetaminophen 325 1 - 2 tab PO .Q4-6H #40 tabs 12/30/21 09/07/22 Unknown Rx mg tablet tramadol 50 mg tablet 50 mg PO TID PRN pain 10 days #30 01/03/22 09/07/22 Unknown Rx tabs clopidogrel 75 mg tablet See Rx Instructions .Route 05/05/22 09/07/22 Unknown Rx .COMPLEX #90 tabs famotidine 20 mg tablet See Rx Instructions .Route 05/05/22 09/07/22 Unknown Rx .COMPLEX #180 tabs fenofibrate nanocrystallized 145 See Rx Instructions .Route 05/05/22 09/07/22 Unknown Rx mg tablet .COMPLEX #90 tabs fluvoxamine 100 mg tablet See Rx Instructions .Route 05/05/22 09/07/22 Unknown Rx .COMPLEX #270 tabs lisinopril 20 mg tablet See Rx Instructions .Route 05/05/22 09/07/22 Unknown Rx .COMPLEX #90 tabs folic acid-vit B6-vit B12 2.5 1 tab PO DAILY #90 tabs 06/05/22 09/07/22 Unknown Rx mg-25 mg-1 mg tablet (WesTab One) atorvastatin 40 mg tablet See Rx Instructions .Route 07/31/22 09/07/22 Unknown Rx .COMPLEX #90 tabs finasteride 5 mg tablet See Rx Instructions .Route 07/31/22 09/07/22 Unknown Rx .COMPLEX #90 tabs tamsulosin 0.4 mg capsule See Rx Instructions .Route 07/31/22 09/07/22 Unknown Rx .COMPLEX #180 caps levofloxacin 750 mg tablet 750 mg PO DAILY 7 days #7 tabs 09/07/22 09/07/22 Unknown Rx promethazine-DM 6.25 mg-15 mg/5 mL 5 ml PO Q6H PRN cough #160 mL 09/07/22 09/07/22 Unknown Rx oral syrup Allergies Allergy/AdvReac Type Severity Reaction Status Date / Time No Known Allergies Allergy Verified 09/10/22 17:23 PFSH Acute PFSH: Medical History Arthritis Atherosclerotic heart disease Benign prostate hyperplasia Benign prostatic hyperplasia with urinary retention Bradyarrhythmia Cataract right 2013 Degenerative lumbar spinal stenosis Depression GERD (gastroesophageal reflux disease) History of kidney stones Hyperlipidemia The EKG from last visit revealed ectopic atrial rhythm with a rate of [address]-T changes. Slightly prominent U waves. Hypertension Incomplete bladder emptying Increased prostate specific antigen (PSA) velocity Macrocytosis without anemia Orthostatic hypotension Ventricular arrhythmia Surgical History H/O laminectomy 2015 H/O shoulder surgery 2010, 2013 History of tonsillectomy Hx of CABG 2008 Family History Mother Heart disease Chronic kidney disease (CKD) Grandmother CAD (coronary artery disease) Stroke Grandfather Lung disease Family/Other Lung disease Denies family history of Diabetes Clotting disorder Dementia Suicide Anesthesia complication Bleeding disorder Cancer Social History Smoking and tobacco status: never smoked Alcohol intake: never Substance/Drug Use: never Household members: spouse Housing: House Marital status: service: Yes Current occupational status: retired Do you think of yourself as: Straight/Heterosexual Current gender identity: Male Vitals/I&O/Wt Last Vital Signs Temp 97.9 F 09/10/22 17:25 Pulse 81 09/10/22 21:30 Resp 17 09/10/22 22:32 BP 115/75 09/10/22 22:32 Pulse Ox 95 09/10/22 22:32 O2 Del Method Room Air 09/10/22 22:32 Weight last 48 hrs Weight 106.594 kg Physical Exam Narrative: General: Alert oriented x3, patient seen laying in bed appearing comfortable at this time no acute respiratory distress. Saturating 96% on room air. HEENT: Normocephalic, atraumatic, EOMI, Cardio: Regular rate rhythm, normal S1-S2 Respiratory: Mild rhonchi bilaterally at bases, no apparent crackles. GI: Abdomen soft, nontender, , bowel sounds + Extremities: No edema noted Data 09/10/22 17:20 09/10/22 17:20 A&P Assessment and plan (1) Acute non-ST elevation myocardial infarction (NSTEMI): (2) Viral pneumonia: (3) GERD (gastroesophageal reflux disease): Qualifiers: Esophagitis presence: without esophagitis Qualified Code(s): K21.9 - Gastro-esophageal reflux disease without esophagitis (4) Hyperlipidemia: Qualifiers: Hyperlipidemia type: mixed hyperlipidemia Qualified Code(s): E78.2 - Mixed hyperlipidemia (5) Hypertension: Qualifiers: Hypertension type: essential hypertension Qualified Code(s): I10 - Essential (primary) hypertension (6) Depression: Qualifiers: Depression Type: unspecified Qualified Code(s): F32.9 - Major depressive disorder, single episode, unspecified (7) Benign prostatic hyperplasia with urinary retention: (8) Atherosclerotic heart disease: Qualifiers: Associated angina: without angina Coronary Disease-Associated Artery/Lesion type: bypass graft, other Qualified Code(s): I25.810 - Atherosclerosis of coronary artery bypass graft(s) without angina pectoris Plan #Enterra rhinovirus upper respiratory infection #Shortness of breath on exertion, worsening, orthopnea #Hyperlipidemia #Hypertension #Coronary disease, history of CABG #GERD #History of orthostatic hypotension #BPH ? Patient recently treated with Levaquin-outpatient for presumed pneumonia however there is no evidence of pneumonia on x-ray today. Patient also received a steroid shot as an outpatient from PCP. He has worsening shortness of breath on exertion and is not feeling better. ? We will place on DuoNeb every 6 hours scheduled ? Patient did receive prednisone 60 in the ER. I will hold off on further steroids at this time. We will provide supportive care. - Continue normal saline 75 cc/h ? BNP 437. Will check echocardiogram. ? I do believe patient is not fluid overloaded at this time. ? Check sputum Gram stain culture stain, procalcitonin is negative. ? We will hold off on antibiotics at this time. We will monitor patient in the hospital ? Continue Lipitor, Plavix, famotidine, fenofibrate, tamsulosin ? Monitor for fever ? Patient not requiring oxygen at this time. ? 6-hour delta troponin is 15. Initial troponin 6, 6-hour troponin 20. I believe this is probably demand ischemia however with a history of CAD and worsening shortness of breath on exertion I may go ahead and place patient on therapeutic Lovenox for 48 hours. ? We will check echocardiogram to rule out wall motion abnormalities. Patient has not complained of any chest pain at all but does have shortness of breath on exertion. ? Consider stress testing prior to discharge ? Add aspirin 81 daily ? Consider cardiology consult Full code Therapeutic Lovenox should suffice Attestations Medical Necessity Statement*: Greater than 2 midnight stay for management of shortness of breath on exertion. Patient also positive for rhinovirus at this time. Coding Level of Care Code G0426 (50 min) TH Encounter Time (min): 50 Patient seen via Telehealth in the acute care setting (hospital or ED location) by agreement and consent of patient or patient chemical sales representative. Telehealth technology used during the visit includes video and audio. This patient encounter is appropriate and reasonable under the circumstances given the patient?s particular presentation at this time. The patient has been advised of the potential risks and limitations of this mode of treatment (including but not limited to the absence of in-person examination at this time) and has agreed to be treated by an off-site physician for this visit. If deemed clinically necessary from this telehealth visit, or if condition or consent for telehealth visit changes, an in-person visit will be arranged. For this encounter, total time for the origination of telehealth care on this date is as shown. Diagnoses Acute non-ST elevation myocardial infarction (NSTEMI) I21.4 Viral pneumonia J12.9 GERD (gastroesophageal reflux disease) K21.9 Esophagitis presence: without esophagitis Hyperlipidemia E78.2 Hyperlipidemia type: mixed hyperlipidemia Hypertension I10 Hypertension type: essential hypertension Depression F32.9 Depression Type: unspecified Benign prostatic hyperplasia with urinary retention N40.1; R33.8 Atherosclerotic heart disease I25.810 Associated angina: without angina Coronary Disease-Associated Artery/Lesion type: bypass graft, other
[2022-09-11] VITALS (95 sets, daily range): BP systolic 102–187; BP diastolic 50–110; PULSE 51–154; RESP 10–30; TEMP 36.6–37.1; O2SAT 88–99
[2022-09-11 00:01] LABS: Procalcitonin 0.07 ng/mL (0-0.5)
[2022-09-11 00:28] LABS: Adenovirus Not Detected (NOT DETECT); Chlamydia Pneumoniae Not Detected (NOT DETECT); Coronavirus 229E,HKU1,NL63,OC4 Not Detected (NOT DETECT); Human Metapneumovirus Not Detected (NOT DETECT); Human Rhinovirus/Enterovirus Detected (NOT DETECT); Influenza A Not Detected (NOT DETECT); Influenza A H1 Not Detected (NOT DETECT); Influenza A H1-2009 Not Detected (NOT DETECT); Influenza A H3 Not Detected (NOT DETECT); Influenza B Not Detected (NOT DETECT); Mycoplasma Pneumoniae Not Detected (NOT DETECT); Parainfluenza Virus Type 1 Not Detected (NOT DETECT); Parainfluenza Virus Type 2 Not Detected (NOT DETECT); Parainfluenza Virus Type 3 Not Detected (NOT DETECT); Parainfluenza Virus Type 4 Not Detected (NOT DETECT); Respiratory Syncytial Virus A Not Detected (NOT DETECT); Respiratory Syncytial Virus B Not Detected (NOT DETECT); SARS-COV-2 Not Detected (NOT DETECT)
[2022-09-11] MEDS: sodium chloride 0.9% 1,000 ML 75 ML IV (00:29)
[2022-09-11] MEDS: heparin 5,000 unit/mL INJ 1 mL 5000 UNIT SUBCUT (00:32)
[2022-09-11 00:55] LABS: Troponin 5 6HR 21.06 ng/L (0-15)
[2022-09-11 00:59] LABS: Troponin 5 6HR Delta 15.06 ng/L (0-12)
--- NOTE | 2022-09-11 02:35 | ECG_ITS ---
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 Measurements Intervals [place] Rate: 61 P: 28 NE: 152 QRS: -39 QRSD: 98 T: 25 QT: 387 QTc: 391 Interpretive Statements SINUS RHYTHM WITH OCCASIONAL SUPRAVENTRICULAR PREMATURE COMPLEXES LEFT AXIS DEVIATION [QRS AXIS < -30] POSSIBLE ANTERIOR MYOCARDIAL INFARCTION , OF INDETERMINATE AGE [30 ms Q WAVE IN V3/V4, OR R < 0.2 mV IN V4] Compared to ECG 09/10/2022 21:08:52 Myocardial infarct finding now present Electronically Signed On 09-12-2022 8:34:09 CDT by Humberto Prince M.D. [id number]
[2022-09-11 03:46] LABS: Basophils % 0.3 %; Hematocrit 39.7 % (42.0-52.0); Lymphocytes # 0.4 10^3/uL (0.8-4.8); Lymphocytes % 4.4 %; Mean Corpuscular HGB Conc 32.7 g/dL (30.0-36.0); Mean Corpuscular Hemoglobin 33.7 pg (28.0-34.0); Mean Corpuscular Volume 102.8 fl (80-94); Mean Platelet Volume 11.3 fL (7.4-10.4); Monocytes # 0.1 10^3/uL (0.2-0.9); Monocytes % 1.6 %; Neutrophils # 8.04 10^3/uL (1.8-7.7); Nucleated Red Blood Cells % 0 %; Platelet Count 235 10^3/cmm (130-400); Red Blood Count 3.86 10^6/uL (4.1-5.3); Red Cell Distribution Width 14.7 % (12.1-15.1); White Blood Count 8.7 10^3/uL (4.0-10.0)
[2022-09-11 04:09] LABS: Anion Gap 13.8 (5-19); Blood Urea Nitrogen 19 mg/dL (8-23); Carbon Dioxide 24 mmol/L (22-29); Chloride 110 mmol/L (98-107); Glucose 163 mg/dL (65-115); Osmolality Calculated 304 mOsm/kg (285-295); Potassium 3.8 mmol/L (3.5-5.1); Sodium 144 mmol/L (136-145)
[2022-09-11] MEDS: tamsulosin 0.4 mg Capsule PO ×2 (09:58→18:32)
[2022-09-11] MEDS: clopidogrel 75 mg Tablet PO (09:58)
[2022-09-11] MEDS: finasteride 5 mg Tablet PO (09:58)
[2022-09-11] MEDS: fenofibrate 145 mg Tablet PO (09:58)
[2022-09-11] MEDS: famotidine 20 mg Tablet PO ×2 (09:58→18:32)
[2022-09-11] MEDS: atorvastatin 40 mg Tablet PO (09:58)
--- NOTE | 2022-09-11 12:32 | PM.PN ---
Subjective Subjective: He feels that he is doing better compared to admission. Coughing up some phlegm. Denies nausea vomiting or diarrhea. Presents to a large gathering for baby shower week before Sunday with over 60 people in attendance. Started feeling unwell in the days following. Denies chest pain or pressure. He is accompanied by his who used to be a [employer]ER. Vitals/I&O/Wt Last Vital Signs Temp 97.8 F 09/11/22 07:44 Pulse 56 L 09/11/22 07:44 Resp 24 H 09/11/22 07:44 BP 115/57 09/11/22 07:44 Pulse Ox 95 09/11/22 07:44 O2 Del Method Room Air 09/11/22 07:44 09/10/22 09/11/22 09/11/22 22:59 06:59 14:59 Intake Total 800 / 800 360 / 360 Output Total 350 / 350 500 / 500 Balance 450 / 450 -140 / -140 Weight last 48 hrs Weight 106.594 kg Physical Exam Const: COMMON NORMALS: patient oriented x3 and alert GENERAL APPEARANCE: cooperative ORIENTATION/CONSCIOUSNESS: Yes awake HENMT: COMMON NORMALS: oropharynx normal Neck/C-Spine: COMMON NORMALS: no JVD Resp: COMMON NORMALS: normal respiratory effort and clear to auscultation bilaterally AUSCULTATION: clear to auscultation bilaterally Cardio: COMMON NORMALS: no JVD, regular rhythm, S1 normal heart sound present, S2 normal heart sound present and No murmurs present (Cardio) RHYTHM: regular rhythm HEART SOUNDS: S1 normal heart sound present and S2 normal heart sound present GI: COMMON NORMALS: Normal to inspection, nondistended, normoactive bowel sounds present, Soft to palpation and non-tender PALPATION: Yes Soft to palpation Extremity: COMMON NORMALS: no joint enlargement OTHER: Trace ankle edema Neuro: COMMON NORMALS: patient oriented x3 and moves all extremities SENSORIUM/ORIENTATION: Yes alert Skin: COMMON NORMALS: no rashes or lesions noted GENERAL SKIN EXAM: no rashes or lesions noted Data 09/11/22 03:12 09/11/22 03:12 Micro: Microbiology 09/11/22 Unknown Blood Culture - Preliminary Blood SPECIMEN COLLECTED 09/10/22 23:21 Blood Culture - Preliminary Blood SPECIMEN COLLECTED A&P Assessment and plan (1) Acute non-ST elevation myocardial infarction (NSTEMI): (2) Viral pneumonia: (3) GERD (gastroesophageal reflux disease): Qualifiers: Esophagitis presence: without esophagitis Qualified Code(s): K21.9 - Gastro-esophageal reflux disease without esophagitis (4) Hyperlipidemia: Qualifiers: Hyperlipidemia type: mixed hyperlipidemia Qualified Code(s): E78.2 - Mixed hyperlipidemia (5) Hypertension: Qualifiers: Hypertension type: essential hypertension Qualified Code(s): I10 - Essential (primary) hypertension (6) Depression: Qualifiers: Depression Type: unspecified Qualified Code(s): F32.9 - Major depressive disorder, single episode, unspecified (7) Benign prostatic hyperplasia with urinary retention: (8) Atherosclerotic heart disease: Qualifiers: Coronary Disease-Associated Artery/Lesion type: bypass graft, other Associated angina: without angina Qualified Code(s): I25.810 - Atherosclerosis of coronary artery bypass graft(s) without angina pectoris Plan #Enterra rhinovirus upper respiratory infection #Shortness of breath on exertion, worsening, orthopnea #Hyperlipidemia #Hypertension #Coronary disease, history of CABG #GERD #History of orthostatic hypotension #BPH Acute bronchitis with rhino enterovirus, did also have some secretions. Discussed expectoration therapy, guaifenesin, flutter valve. Discussed he is at elevated risk of developing bacterial pneumonia. Currently no sign of pneumonia. Continue isolation for rhino enterovirus. We will reassess his recovery and oxygenation. Discussed with him and his regarding elevation of troponin. He has a history of CAD, history of CABG in 2008. Denies chest pain or pressure. We will troponin the morning. Requested TTE, follow-up. With possible NSTEMI he is on therapeutic Lovenox. Continue Plavix. We discussed that he would benefit from additional assessment given troponin abnormality, history of CAD with stress testing to which she is agreeable. We discussed consideration of timing in the hospital versus after discharge after recovering from his acute viral infection. ?Continue DuoNeb every 6 hours scheduled. Consideration of nebulizer plus nebs at discharge. ? Patient did receive prednisone 60 in the ER. Further steroids were held off. Antibiotics were held off. Stop normal saline 75 cc/h ? Check sputum Gram stain culture stain, procalcitonin is negative. ? Continue Lipitor, Plavix, famotidine, fenofibrate, tamsulosin ? Monitor oxygenation Full code Therapeutic Lovenox should suffice Attestations Medical Necessity Statement*: Continue hospitalization for additional assessment management of rhino enterovirus infection, bronchitis, additional assessment with NSTEMI, possible type II but with underlying coronary artery disease with prior bypass surgery, pending additional cardiac assessment Diagnoses Acute non-ST elevation myocardial infarction (NSTEMI) I21.4 Viral pneumonia J12.9 GERD (gastroesophageal reflux disease) K21.9 Esophagitis presence: without esophagitis Hyperlipidemia E78.2 Hyperlipidemia type: mixed hyperlipidemia Hypertension I10 Hypertension type: essential hypertension Depression F32.9 Depression Type: unspecified Benign prostatic hyperplasia with urinary retention N40.1; R33.8 Atherosclerotic heart disease I25.810 Coronary Disease-Associated Artery/Lesion type: bypass graft, other Associated angina: without angina
--- NOTE | 2022-09-11 12:37 | USCV_ITS ---
Carlo Dalton Age: 82 Gender: M : 1940 Exam Date: 09/11/2022 16:55 Ordering Phys: Pito Ochoa MD Technologist: Anjel Noel Exam Location: [facility] [place]ication: trop elevation, poss demand, but HX CAD/ CABG BP: 102 / 50 HR: 56 Rhythm: Sinus Technical Quality: Adequate MEASUREMENTS (Male / Female) Normal Values 2D ECHO LV Ejection Fraction MOD 2C 67.0 % LV Ejection Fraction 2C AL 69.3 % LA Diameter 4.1 cm LA Width 5.2 cm LA Height 6.3 cm RA Width 4.2 cm RA Height 5.9 cm Aorta at Sinotubular Diameter 3.0 cm M-MODE Aortic Annulus Diameter 4.0 cm LA Ao Ratio MM 1.0 MV E Point Septal Separation 0.6 cm DOPPLER AV Peak Velocity 142.0 cm/s LVOT Peak Velocity 72.0 cm/s MV Peak Velocity 134.0 cm/s MV Area PHT 6.3 cm squared Mitral E to A Ratio 3.6 MV E' Velocity 64.0 cm/s Mitral E to MV E' Ratio 11.4 Mitral E to LV E' Lateral Ratio 9.9 Mitral E to LV E' Septal Ratio 13.7 TR Peak Velocity 271.0 cm/s TR Peak Gradient 29.4 mmHg TR Mean Velocity 222.6 cm/s TR Mean Gradient 20.4 mmHg TR Velocity Time Integral 85.2 cm Right Atrial Pressure 8.0 mmHg Pulmonary Artery Systolic Pressu 37.4 mmHg PV Peak Velocity 86.0 cm/s RV Acceleration Time 0.1 s RV Ejection Time 0.3 s RV AcT/ET 0.4 FINDINGS Left Ventricle Left ventricle is normal in size. LV systolic function is normal with EF of 55 to 60%. No regional wall motion abnormalities. Right Ventricle Normal in size and function Right Atrium Normal in size Left Atrium Dilated Mitral Valve Structurally normal mitral valve. Mild mitral regurgitation. Aortic Valve Aortic valve is thickened. Mild to moderate aortic regurgitation. No significant stenosis. Tricuspid Valve Trace tricuspid regurgitation. Insufficient TR jet to evaluate RVSP. Pulmonic Valve Not well visualized. Pericardium Normal Aorta Ascending aorta is dilated. IVC Appears to be normal CONCLUSIONS LV systolic function is normal with EF 55 to 60%. Left atrial dilation Mild mitral regurgitation Mild to moderate aortic regurgitation Trace tricuspid regurgitation Ascending aorta is dilated. Compared to prior echocardiogram from 2019, patient now has mild to moderate aortic regurgitation and ascending aorta is dilated. Humberto Prince MD (Electronically Signed) Final Date: 12 Sep 2022 12:00 S
[2022-09-11] MEDS: enoxaparin 120 mg/0.8 mL Syringe 110 MG SUBCUT ×2 (12:58→23:07)
[2022-09-11] MEDS: guaiFENesin 600 mg Tablet PO ×2 (12:59→18:32)
[2022-09-12] VITALS (7 sets, daily range): BP systolic 117–142; BP diastolic 62–83; PULSE 51–73; RESP 16–26; TEMP 37.1; O2SAT 94–99
[2022-09-12 06:28] LABS: Basophils # 0.1 10^3/uL (0.0-0.1); Basophils % 0.8 %; Eosinophils # 0.3 10^3/uL (0.0-0.8); Eosinophils % 3.5 %; Hematocrit 38.6 % (42.0-52.0); Hemoglobin 12.7 g/dL (11.7-16.6); Lymphocytes # 2.9 10^3/uL (0.8-4.8); Lymphocytes % 29.2 %; Mean Corpuscular HGB Conc 32.9 g/dL (30.0-36.0); Mean Corpuscular Hemoglobin 34.3 pg (28.0-34.0); Mean Corpuscular Volume 104.3 fl (80-94); Mean Platelet Volume 11.3 fL (7.4-10.4); Monocytes # 1.1 10^3/uL (0.2-0.9); Neutrophils # 5.37 10^3/uL (1.8-7.7); Neutrophils % 54.7 %; Nucleated Red Blood Cells % 0 %; Platelet Count 249 10^3/cmm (130-400); Red Cell Distribution Width 14.8 % (12.1-15.1); White Blood Count 9.8 10^3/uL (4.0-10.0)
[2022-09-12 06:48] LABS: Blood Urea Nitrogen 22 mg/dL (8-23); Calcium 8.5 mg/dL (8.5-10.5); Carbon Dioxide 24 mmol/L (22-29); Chloride 113 mmol/L (98-107); Creatinine Clr Calc Pharmacy 82.5904; Glucose 92 mg/dL (65-115); Osmolality Calculated 301 mOsm/kg (285-295); Sodium 144 mmol/L (136-145)
[2022-09-12 06:50] LABS: Anion Gap 11.2 (5-19); Potassium 4.2 mmol/L (3.5-5.1)
[2022-09-12 06:55] LABS: Troponin T (5th) Once 29 ng/L (0-15)
[2022-09-12] MEDS: fenofibrate 145 mg Tablet PO (09:03)
[2022-09-12] MEDS: clopidogrel 75 mg Tablet PO (09:03)
[2022-09-12] MEDS: atorvastatin 40 mg Tablet PO (09:03)
[2022-09-12] MEDS: tamsulosin 0.4 mg Capsule PO (09:03)
[2022-09-12] MEDS: famotidine 20 mg Tablet PO (09:03)
[2022-09-12] MEDS: finasteride 5 mg Tablet PO (09:03)
[2022-09-12] MEDS: guaiFENesin 600 mg Tablet PO (09:03)
[2022-09-12] MEDS: enoxaparin 120 mg/0.8 mL Syringe 110 MG SUBCUT (13:22)
[2022-09-12] MEDS: guaiFENesin 600 mg Tablet 1200 MG PO (14:38)
--- NOTE | 2022-09-12 19:37 | PM.DCS ---
Discharge Providers Date of Admission: 09/10/22 23:13 Date of Discharge: September 12, 2022 Attending Provider at Admission: Ashley Bui MD Attending Provider at Discharge: Pito Ochoa Primary Care Provider: Katy Gustafson MD Diagnoses at Discharge Discharge Diagnosis (1) Acute non-ST elevation myocardial infarction (NSTEMI): Status: Acute (2) Viral pneumonia: Status: Acute (3) GERD (gastroesophageal reflux disease): Status: Acute Qualifiers: Esophagitis presence: without esophagitis Qualified Code(s): K21.9 - Gastro-esophageal reflux disease without esophagitis (4) Hyperlipidemia: Status: Acute Qualifiers: Hyperlipidemia type: mixed hyperlipidemia Qualified Code(s): E78.2 - Mixed hyperlipidemia Permanent problem details: The EKG from last visit revealed ectopic atrial rhythm with a rate of [address]-T changes. Slightly prominent U waves. (5) Hypertension: Status: Acute Qualifiers: Hypertension type: essential hypertension Qualified Code(s): I10 - Essential (primary) hypertension (6) Depression: Status: Acute Qualifiers: Depression Type: unspecified Qualified Code(s): F32.9 - Major depressive disorder, single episode, unspecified (7) Benign prostatic hyperplasia with urinary retention: Status: Acute (8) Atherosclerotic heart disease: Status: Acute Qualifiers: Coronary Disease-Associated Artery/Lesion type: bypass graft, other Associated angina: without angina Qualified Code(s): I25.810 - Atherosclerosis of coronary artery bypass graft(s) without angina pectoris Reason for Visit Reason for Visit: sob, cough, fever Hospital Course Hospital Course Pleasant 82 years old man was hospitalized for assessment management after presenting with shortness of breath, cough, was found positive for rhino enterovirus. Was recently treated with Levaquin as outpatient. On presentation chest x-ray without sign of pneumonia. Received a dose of steroid on presentation, treated with breathing treatments. Expectorants. Symptoms have been improving. Maintaining isolation for now until symptoms resolving. On presentation with moderate troponin elevation. Remain chest pain-free. Thought to be secondary to demand ischemia, although does have history of CAD. Echocardiogram was obtained: LV systolic function is normal with EF 55 to 60%. Left atrial dilation Mild mitral regurgitation Mild to moderate aortic regurgitation Trace tricuspid regurgitation Ascending aorta is dilated. Compared to prior echocardiogram from 2019, patient now has mild to moderate aortic regurgitation and ascending aorta is dilated. As he is feeling better, improving, he is discharged home with instructions to return in case of concerning symptoms, with referral for stress testing. Please follow-up for continued recovery from rhino enterovirus infection, follow-up stress testing, as well as valvular abnormalities with mild to moderate aortic regurgitation, mild mitral regurgitation. Physical Exam Narrative: Today he reports he is feeling much better. Breathing is improving. Still some sticky phlegm. No nausea or vomiting or diarrhea. No chest pain or pressure. Const: COMMON NORMALS: patient oriented x3 and alert GENERAL APPEARANCE: cooperative ORIENTATION/CONSCIOUSNESS: Yes awake HENMT: COMMON NORMALS: oropharynx normal Neck/C-Spine: COMMON NORMALS: no JVD Resp: COMMON NORMALS: normal respiratory effort and clear to auscultation bilaterally AUSCULTATION: clear to auscultation bilaterally Cardio: COMMON NORMALS: no JVD, regular rhythm, S1 normal heart sound present, S2 normal heart sound present and No murmurs present (Cardio) RHYTHM: regular rhythm HEART SOUNDS: S1 normal heart sound present and S2 normal heart sound present GI: COMMON NORMALS: Normal to inspection, nondistended, normoactive bowel sounds present, Soft to palpation and non-tender PALPATION: Yes Soft to palpation Extremity: COMMON NORMALS: no joint enlargement OTHER: Trace ankle edema Neuro: COMMON NORMALS: patient oriented x3 and moves all extremities SENSORIUM/ORIENTATION: Yes alert Skin: COMMON NORMALS: no rashes or lesions noted GENERAL SKIN EXAM: no rashes or lesions noted Discharge Data Studies Completed and Pending Completed Studies During Hospitalization Category Date Time Status XR chest 1V portable [id number] Stat Exams 09/10/22 17:10 Completed CV. echo complete* [id number] Routine Ultrasound 09/11/22 12:37 Completed Pending at discharge Category Date Time Status Blood Culture Routine Lab 09/10/22 23:21 Results Sputum Culture and Gram Stain Stat Lab 09/11/22 02:30 Results Radiology Impressions Chest X-Ray 09/10/22 17:10 IMPRESSION: 1. Cardiomegaly. 2. Negative for infiltrate. Laboratory Results WBC 9.8 10^3/uL (4.0-10.0) 09/12/22 05:38 RBC 3.70 10^6/uL (4.1-5.3) L 09/12/22 05:38 Hgb 12.7 g/dL (11.7-16.6) 09/12/22 05:38 Hct 38.6 % (42.0-52.0) L 09/12/22 05:38 MCV 104.3 fl (80-94) H 09/12/22 05:38 MCH 34.3 pg (28.0-34.0) H 09/12/22 05:38 MCHC 32.9 g/dL (30.0-36.0) 09/12/22 05:38 RDW 14.8 % (12.1-15.1) 09/12/22 05:38 Plt Count 249 10^3/cmm (130-400) 09/12/22 05:38 MPV 11.3 fL (7.4-10.4) H 09/12/22 05:38 Neut % (Auto) 54.7 % 09/12/22 05:38 Lymph % (Auto) 29.2 % 09/12/22 05:38 Graham % (Auto) 11.0 % 09/12/22 05:38 Eos % (Auto) 3.5 % 09/12/22 05:38 Baso % (Auto) 0.8 % 09/12/22 05:38 Neut # (Auto) 5.37 10^3/uL (1.8-7.7) 09/12/22 05:38 Lymph # (Auto) 2.9 10^3/uL (0.8-4.8) 09/12/22 05:38 Graham # (Auto) 1.1 10^3/uL (0.2-0.9) H 09/12/22 05:38 Eos # (Auto) 0.3 10^3/uL (0.0-0.8) 09/12/22 05:38 Baso # (Auto) 0.1 10^3/uL (0.0-0.1) 09/12/22 05:38 Nucleated RBC % (auto) 0 % 09/12/22 05:38 Nucleated RBCs # 0.0 /100WBC 09/12/22 05:38 Sodium 144 mmol/L (136-145) 09/12/22 05:38 Potassium 4.2 mmol/L (3.5-5.1) 09/12/22 05:38 Chloride 113 mmol/L (98-107) H 09/12/22 05:38 Carbon Dioxide 24 mmol/L (22-29) 09/12/22 05:38 Anion Gap 11.2 (5-19) 09/12/22 05:38 BUN 22 mg/dL (8-23) 09/12/22 05:38 Creatinine 0.9 mg/dL (0.7-1.2) 09/12/22 05:38 GFR Calculation Not Reportable 09/12/22 05:38 Glucose 92 mg/dL (65-115) 09/12/22 05:38 Calculated Osmolality 301 mOsm/kg (285-295) H 09/12/22 05:38 Calcium 8.5 mg/dL (8.5-10.5) 09/12/22 05:38 Magnesium 2.0 mg/dL (1.7-2.3) 09/11/22 03:12 Total Bilirubin 0.5 mg/dL (0.15-1.2) 09/10/22 17:20 AST 25 U/L (0-40) 09/10/22 17:20 ALT 20 U/L (0-41) 09/10/22 17:20 Alkaline Phosphatase 80 U/L (40-130) 09/10/22 17:20 Troponin T Gen 5 ng/L 29 ng/L (0-15) H 09/12/22 05:38 Troponin T Baseline 6 ng/L (0-15) 09/10/22 17:20 Troponin T 120 Minute 19.57 ng/L (0-15) H 09/10/22 20:06 Delta Troponin T 13.57 ABS# (0-10) H* 09/10/22 20:06 Troponin T Hi Sens 6Hr 21.06 ng/L (0-15) H 09/10/22 23:21 Troponin T Hi Sens 6Hr Delta 15.06 ng/L (0-12) H* 09/10/22 23:21 C-Reactive Protein 3.0 mg/L (0.0-4.9) 09/10/22 17:20 NT-Pro-B Natriuret Pep 437 pg/mL (0-450) 09/10/22 17:20 Total Protein 6.0 g/dL (6.6-8.7) L 09/10/22 17:20 Albumin 3.2 g/dL (3.5-5.2) L 09/10/22 17:20 Globulin 2.8 g/dL (1.3-4.6) 09/10/22 17:20 Procalcitonin 0.07 ng/mL (0-0.5) 09/10/22 23:21 Nasal Influ A H1 2009 PCR Not detected (NOT DETECT) 09/10/22 22:32 Adenovirus (PCR) Not detected (NOT DETECT) 09/10/22 22:32 C. pneumoniae DNA (PCR) Not detected (NOT DETECT) 09/10/22 22:32 Coronavirus 229E (PCR) Not detected (NOT DETECT) 09/10/22 22:32 Human Metapneumovir PCR Not detected (NOT DETECT) 09/10/22 22:32 Influenza A (H1) PCR Not detected (NOT DETECT) 09/10/22 22:32 Influenza A (H3) PCR Not detected (NOT DETECT) 09/10/22 22:32 Influenza Type A (PCR) Not detected (NOT DETECT) 09/10/22 22:32 Influenza Type B (PCR) Not detected (NOT DETECT) 09/10/22 22:32 M. pneumoniae (PCR) Not detected (NOT DETECT) 09/10/22 22:32 Parainfluenza 1 (PCR) Not detected (NOT DETECT) 09/10/22 22:32 Parainfluenza 2 (PCR) Not detected (NOT DETECT) 09/10/22 22:32 Parainfluenza 3 (PCR) Not detected (NOT DETECT) 09/10/22 22:32 Parainfluenza 4 (PCR) Not detected (NOT DETECT) 09/10/22 22:32 RSV Type A (PCR) Not detected (NOT DETECT) 09/10/22 22:32 RSV Type B (PCR) Not detected (NOT DETECT) 09/10/22 22:32 Entero/Rhino (PCR) Detected (NOT DETECT) A 09/10/22 22:32 SARS-CoV-2 (PCR) Not detected (NOT DETECT) 09/10/22 22:32 SARS-CoV-2 Ag (Rapid) negative (Negative) 09/10/22 18:06 Vitals Last Vital Signs Temp 98.8 F 09/12/22 08:00 Pulse 53 L 09/12/22 15:10 Resp 26 H 09/12/22 15:10 BP 142/83 09/12/22 15:10 Pulse Ox 94 09/12/22 15:10 O2 Del Method Room Air 09/12/22 13:15 O2 Flow Rate 2 09/12/22 08:00 Discharge Plan Discharge Patient Disposition: Home Condition: Stable Prescriptions: Continued cholecalciferol (vitamin D3) 125 mcg (5,000 unit) capsule 125 mcg PO DAILY Ocuvite Adult 50 Plus 250-5-1 mg capsule 1 cap PO DAILY ascorbic acid (vitamin C) 1,000 mg tablet 1 g PO DAILY promethazine-DM 6.25-15 mg/5 mL syrup 5 ml PO Q6H PRN (Reason: cough) Qty: 160 0RF levofloxacin 750 mg tablet 750 mg PO DAILY 7 Days Qty: 7 0RF nitroglycerin [Nitrostat] 0.4 mg tablet, sublingual 0.4 mg SUBLINGUAL Q5M PRN (Reason: chest pain) Qty: 90 3RF famotidine 20 mg tablet See Rx Instructions .ROUTE .COMPLEX Qty: 180 0RF Dose Instruction: TAKE 1 TABLET TWICE DAILY Rx Instructions: TAKE 1 TABLET TWICE DAILY lisinopril 20 mg tablet See Rx Instructions .ROUTE .COMPLEX Qty: 90 0RF Dose Instruction: TAKE 1 TABLET EVERY DAY Rx Instructions: TAKE 1 TABLET EVERY DAY clopidogrel 75 mg tablet See Rx Instructions .ROUTE .COMPLEX Qty: 90 0RF Dose Instruction: TAKE 1 TABLET EVERY DAY Rx Instructions: TAKE 1 TABLET EVERY DAY fluvoxamine 100 mg tablet See Rx Instructions .ROUTE .COMPLEX Qty: 270 0RF Dose Instruction: TAKE 1 TABLET THREE TIMES DAILY Rx Instructions: TAKE 1 TABLET THREE TIMES DAILY fenofibrate nanocrystallized 145 mg tablet See Rx Instructions .ROUTE .COMPLEX Qty: 90 0RF Dose Instruction: TAKE 1 TABLET EVERY DAY Rx Instructions: TAKE 1 TABLET EVERY DAY WesTab One 2.5-25-1 mg tablet 1 tab PO DAILY Qty: 90 1RF atorvastatin 40 mg tablet See Rx Instructions .ROUTE .COMPLEX Qty: 90 0RF Dose Instruction: TAKE 1 TABLET EVERY DAY Rx Instructions: TAKE 1 TABLET EVERY DAY tamsulosin 0.4 mg capsule See Rx Instructions .ROUTE .COMPLEX Qty: 180 0RF Dose Instruction: TAKE 1 CAPSULE TWICE DAILY Rx Instructions: TAKE 1 CAPSULE TWICE DAILY finasteride 5 mg tablet See Rx Instructions .ROUTE .COMPLEX Qty: 90 0RF Dose Instruction: TAKE 1 TABLET EVERY DAY Rx Instructions: TAKE 1 TABLET EVERY DAY Discharge Orders: Discharge Order (Routine); Ordered 09/12/22 Ordered By: Pito Ochoa Other Ambulatory Orders: Sestamibi Stress Test Request (Routine) Timeframe: 1 Week Facility: [facility] - Location: [facility] Ordered By: Pito Ochoa Referrals: Katy Gustafson MD [Primary Care Provider] - 09/18/22 3:40 pm (Please follow-up with Katy Gustafson on Sunday, September 18 at 3:40P.M. If you have any questions or need reschedule. Please call [facility] Centralized Scheduling will contact you to schedule an outpatinet strees test. If you haven't from them by morning. please call ) Discharge Diet: Cardiac Discharge Activity: Oxygen as instructed Patient Instructions: Viral Pneumonia (DC), GERD (Gastroesophageal Reflux Disease) (DC), Hypertension (DC), Hyperlipidemia (DC), Opioid Safety Activity Restrictions/Additional Instructions: Follow-up with your primary doctor for reassessment of improvement from rhinovirus infection. Continue flutter valve, Mucinex. Maintain droplet and contact isolation until 48 hours after your symptoms have resolved. Due to abnormality of troponin noted presentation, suspected due to demand from acute infection, but with history of coronary disease, please follow-up with stress test for additional assessment and follow-up with your primary doctor. Additionally discuss with your primary doctor mild to moderate aortic valve regurgitation seen on echocardiogram. Also noted mild mitral regurgitation. Please follow-up with your primary doctor also regarding noted dilation of ascending aorta incidentally noted on echocardiogram. Discharge Attestations Time Spent in Discharge Care*: greater than 30 min Quality Metrics Clinical Quality Measures [ No reported AMI, CVA or VTE this stay] Coding Level of Care Code 52541 Total time (in minutes) for Discharge: 40 Diagnoses Acute non-ST elevation myocardial infarction (NSTEMI) I21.4 Viral pneumonia J12.9 GERD (gastroesophageal reflux disease) K21.9 Esophagitis presence: without esophagitis Hyperlipidemia E78.2 Hyperlipidemia type: mixed hyperlipidemia Hypertension I10 Hypertension type: essential hypertension Depression F32.9 Depression Type: unspecified Benign prostatic hyperplasia with urinary retention N40.1; R33.8 Atherosclerotic heart disease I25.810 Coronary Disease-Associated Artery/Lesion type: bypass graft, other Associated angina: without angina
== END 2022-09-12 15:31 | disposition home or self-care (01) ==
LOC: ER 22:54 → CSU 23:13
PROVIDERS: Emergency Medicine; Admitting Provider Internal Medicine; Emergency Provider Emergency Medicine; PCP Family Medicine; Visit Provider Internal Medicine
DX: J06.9 Acute upper respiratory infection, unspecified (principal); B34.8 Other viral infections of unspecified site; E78.5 Hyperlipidemia, unspecified; Z95.1 Presence of aortocoronary bypass graft; I25.10 Atherosclerotic heart disease of native coronary artery without angina pectoris; K21.9 Gastro-esophageal reflux disease without esophagitis; I10 Essential (primary) hypertension; R94.39 Abnormal result of other cardiovascular function study; F32.9 Major depressive disorder, single episode, unspecified; N40.1 Benign prostatic hyperplasia with lower urinary tract symptoms; R33.8 Other retention of urine; I08.3 Combined rheumatic disorders of mitral, aortic and tricuspid valves
CPT/HCPCS: 36415; 71045; 80048; 80053; 83735; 83880; 84145; 84484; 85025; 86140; 87040; 87070; 87205; 87426; 87486; 87581; 87633; 93005; 93306; 94640; 94760; 96360; 96372; 99285; G0378; J1644; J1650; J7030; J7512; J7613

== ENCOUNTER → 2022-09-29 10:30 | Outpatient (BNVA) | payer MEDICARE, SELFPAY | PROVIDERS: PCP Family Medicine; Visit Provider Internal Medicine Cardiovascular Disease | DX: J12.9 Viral pneumonia, unspecified (principal); E78.2 Mixed hyperlipidemia; I10 Essential (primary) hypertension | CPT/HCPCS: 99213 ==

== ENCOUNTER → 2022-10-10 16:00 | Outpatient (BNVA) | payer MEDICARE, SELFPAY | PROVIDERS: PCP Family Medicine; Visit Provider Family Medicine | DX: N40.0 Benign prostatic hyperplasia without lower urinary tract symptoms (principal); M25.551 Pain in right hip; M25.561 Pain in right knee; M17.11 Unilateral primary osteoarthritis, right knee; M16.11 Unilateral primary osteoarthritis, right hip | CPT/HCPCS: 73502; 73562 ==

== ENCOUNTER 2022-11-22 06:00 | Outpatient (RCR) | payer MEDICARE, SELFPAY | END 2022-12-14 23:59 | disposition home or self-care (01) | LOC: TPT 06:00 | PROVIDERS: Visit Provider Family Medicine | DX: M25.561 Pain in right knee (principal); M25.551 Pain in right hip | CPT/HCPCS: 97110; 97163 ==

== ENCOUNTER 2022-12-15 06:00 | Outpatient (RCR) | payer MEDICARE, SELFPAY | END 2023-01-11 23:59 | disposition home or self-care (01) | LOC: TPT 06:00 | PROVIDERS: Visit Provider Family Medicine | DX: M25.561 Pain in right knee (principal); M25.551 Pain in right hip | CPT/HCPCS: 97110 ==

== ENCOUNTER 2023-02-07 10:38 | Outpatient (CLI) | payer MEDICARE, SELFPAY | END 2023-02-07 10:39 | disposition home or self-care (01) | LOC: SPT 10:39 | PROVIDERS: Visit Provider Physician Assistant | DX: Z46.89 Encounter for fitting and adjustment of other specified devices (principal); M25.561 Pain in right knee; M25.551 Pain in right hip; M17.11 Unilateral primary osteoarthritis, right knee | CPT/HCPCS: 20610; 97760; 99203; J3301; L1851 ==

== ENCOUNTER → 2023-02-27 10:30 | Outpatient (BNVA) | payer MEDICARE, SELFPAY | PROVIDERS: Visit Provider Family Medicine | DX: I10 Essential (primary) hypertension (principal); E78.5 Hyperlipidemia, unspecified; N40.0 Benign prostatic hyperplasia without lower urinary tract symptoms; F32.9 Major depressive disorder, single episode, unspecified | CPT/HCPCS: 80053; 80061; 84443; 85025; G0103 ==

== ENCOUNTER → 2023-04-03 09:52 | Outpatient (BNVA) | payer MEDICARE, SELFPAY | PROVIDERS: Visit Provider Internal Medicine Cardiovascular Disease | DX: I25.810 Atherosclerosis of coronary artery bypass graft(s) without angina pectoris (principal); E78.2 Mixed hyperlipidemia; I10 Essential (primary) hypertension; I49.8 Other specified cardiac arrhythmias | CPT/HCPCS: 99214 ==

== ENCOUNTER → 2023-04-18 12:20 | Outpatient (BNVA) | payer MEDICARE, SELFPAY | PROVIDERS: PCP Family Medicine; Visit Provider Family Medicine | DX: I10 Essential (primary) hypertension (principal); E78.5 Hyperlipidemia, unspecified; R79.89 Other specified abnormal findings of blood chemistry; K21.9 Gastro-esophageal reflux disease without esophagitis; E78.2 Mixed hyperlipidemia; Z79.899 Other long term (current) drug therapy | CPT/HCPCS: 80053; 80061; 84439; 84443; 84481; 85025 ==

== ENCOUNTER → 2023-05-24 07:57 | Outpatient (BNVA) | payer MEDICARE, SELFPAY | PROVIDERS: PCP Family Medicine; Visit Provider Physician Assistant | DX: M16.11 Unilateral primary osteoarthritis, right hip (principal) | CPT/HCPCS: 99213 ==

== ENCOUNTER → 2023-07-13 08:48 | Outpatient (BNVA) | payer MEDICARE, SELFPAY | PROVIDERS: PCP Family Medicine; Visit Provider Student in an Organized Health Care Education/Training Program | DX: M16.11 Unilateral primary osteoarthritis, right hip (principal) | CPT/HCPCS: 20610; 77002; 99213; J3301 ==

== ENCOUNTER → 2023-08-28 10:45 | Outpatient (BNVA) | payer MEDICARE, SELFPAY | PROVIDERS: PCP Family Medicine; Visit Provider Family Medicine | DX: E78.2 Mixed hyperlipidemia (principal); I10 Essential (primary) hypertension | CPT/HCPCS: 80053; 80061; 84443; 85025 ==

== ENCOUNTER → 2023-09-06 11:17 | Outpatient (BNVA) | payer MEDICARE, SELFPAY | PROVIDERS: PCP Family Medicine; Visit Provider Family Medicine | DX: R05.9 Cough, unspecified (principal); J01.00 Acute maxillary sinusitis, unspecified | CPT/HCPCS: 87400; 87426 ==

== ENCOUNTER → 2023-10-03 09:58 | Outpatient (BNVA) | payer MEDICARE, SELFPAY | PROVIDERS: PCP Family Medicine; Visit Provider Internal Medicine Cardiovascular Disease | DX: I25.810 Atherosclerosis of coronary artery bypass graft(s) without angina pectoris (principal); E78.2 Mixed hyperlipidemia; I10 Essential (primary) hypertension; I49.8 Other specified cardiac arrhythmias | CPT/HCPCS: 99214 ==

== ENCOUNTER → 2023-10-26 10:45 | Outpatient (BNVA) | payer MEDICARE, SELFPAY | PROVIDERS: PCP Family Medicine; Visit Provider Physician Assistant | DX: M16.11 Unilateral primary osteoarthritis, right hip (principal) | CPT/HCPCS: 99213 ==

== ENCOUNTER → 2023-12-18 10:38 | Outpatient (BNVA) | payer MEDICARE, SELFPAY | PROVIDERS: PCP Family Medicine; Visit Provider Student in an Organized Health Care Education/Training Program | DX: M16.11 Unilateral primary osteoarthritis, right hip | CPT/HCPCS: 99214 ==

== ENCOUNTER 2024-01-28 12:37 | Outpatient (CLI) | payer MEDICARE, SELFPAY ==
[2024-01-28 12:54] LABS: Basophils # 0.1 10^3/uL (0.0-0.1); Basophils % 0.8 %; Eosinophils # 0.2 10^3/uL (0.0-0.8); Eosinophils % 2.8 %; Hematocrit 40.3 % (37-53); Lymphocytes # 2.2 10^3/uL (0.8-4.8); Lymphocytes % 29.9 %; Mean Corpuscular HGB Conc 32.5 g/dL (30-55); Mean Corpuscular Hemoglobin 33.7 pg (27-33); Mean Corpuscular Volume 103.6 fl (82-101); Mean Platelet Volume 11.2 fL (7.4-10.4); Monocytes # 0.8 10^3/uL (0.2-0.9); Monocytes % 10.1 %; Neutrophils # 4.19 10^3/uL (1.8-7.7); Neutrophils % 56.1 %; Nucleated Red Blood Cells % 0 %; Platelet Count 228 10^3/cmm (157-399); Red Blood Count 3.89 10^6/uL (3.85-5.65); Red Cell Distribution Width 14.6 % (12.1-15.1); White Blood Count 7.46 10^3/uL (3.29-11.43)
[2024-01-28 13:12] LABS: Alanine Aminotransferase 12 U/L (0-41); Albumin Level 3.5 g/dL (3.5-5.2); Alkaline Phosphatase 71 U/L (40-130); Anion Gap 9.3 (5-19); Aspartate Amino Transferase 25 U/L (0-40); Blood Urea Nitrogen 17 mg/dL (8-23); Calcium 8.6 mg/dL (8.5-10.5); Carbon Dioxide 27 mmol/L (22-29); Chloride 111 mmol/L (98-107); Globulin 2.2 g/dL (1.3-4.6); Glucose 100 mg/dL (65-115); Osmolality Calculated 298 mOsm/kg (285-295); Potassium 4.3 mmol/L (3.5-5.1); Sodium 143 mmol/L (136-145); Total Bilirubin 0.6 mg/dL (0.15-1.2); Total Protein 5.7 g/dL (6.6-8.7)
== END 2024-01-28 12:38 | disposition home or self-care (01) ==
LOC: LAB 12:38
PROVIDERS: PCP Family Medicine; Visit Provider Student in an Organized Health Care Education/Training Program
DX: Z01.818 Encounter for other preprocedural examination (principal)
CPT/HCPCS: 36415; 80053; 85025

== ENCOUNTER → 2024-01-30 11:52 | Outpatient (BNVA) | payer MEDICARE, SELFPAY | PROVIDERS: Visit Provider Student in an Organized Health Care Education/Training Program | DX: Z01.818 Encounter for other preprocedural examination (principal) | CPT/HCPCS: 81003 ==

== ENCOUNTER → 2024-02-04 11:31 | Outpatient (BNVA) | payer MEDICARE, SELFPAY | PROVIDERS: Visit Provider Family Medicine | DX: Z01.818 Encounter for other preprocedural examination (principal); R00.1 Bradycardia, unspecified; I45.19 Other right bundle-branch block; R94.31 Abnormal electrocardiogram [ECG] [EKG] | CPT/HCPCS: 93005 ==

== ENCOUNTER 2024-02-11 07:43 | Outpatient (CLI) | payer MEDICARE, SELFPAY ==
--- NOTE | 2024-02-11 08:00 | CT_ITS ---
WS: [id number] CT RIGHT HIP NONCONTRAST [facility] TECHNIQUE: Noncontrast CT of the RIGHT knee to include the RIGHT hip and ankle. CLINICAL INFORMATION: M16.11 - Unilateral primary osteoarthritis, right hip COMPARISON: None. DLP: 950.[address] scans at [facility] use at least one of these dose optimization techniques: automated e xposure control; mA and/or kV adjustment per patient size (includes targeted exams where dose is matc hed to clinical indication); or iterative reconstruction. FINDINGS: Advanced arthritis RIGHT hip with [id number] articulation. Subchondral sclerosis and hypertrophic c hanges. Advanced arthritis LEFT hip. 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 Degenerative arthritis sacroiliac joints. Vascular calcification. Enlarged prostate measur ing 6 cm. Recommend correlation PSA. No evidence of bladder outlet obstruction. Tiny fat-containing u mbilical hernia. CT/CT hip RT [facility] [address] IMPRESSION: Images obtained for preoperative purposes.
== END 2024-02-11 07:44 | disposition home or self-care (01) ==
LOC: RAD 07:44
PROVIDERS: PCP Family Medicine; Visit Provider Student in an Organized Health Care Education/Training Program
DX: M16.0 Bilateral primary osteoarthritis of hip (principal); Z01.818 Encounter for other preprocedural examination; N40.0 Benign prostatic hyperplasia without lower urinary tract symptoms
CPT/HCPCS: 73700

== ENCOUNTER 2024-02-18 09:43 | Observation (INO) | payer MEDICARE, SELFPAY ==
[2024-02-18] VITALS (18 sets, daily range): BP systolic 117–166; BP diastolic 59–75; PULSE 47–104; RESP 14–18; TEMP 36.3–36.9; O2SAT 92–99; BMI 31.1
[2024-02-18] MEDS: lactated ringers 500 ML IV (06:18)
[2024-02-18] MEDS: ketorolac 30 mg/mL INJ IVP (06:22)
[2024-02-18] MEDS: acetaminophen 1,000 MG/100 ML PIGGYBACK 400 MG IV ×3 (06:24→22:04)
--- NOTE | 2024-02-18 06:43 | ANES.PREANE2 ---
Pre-Anesthetic Assessment Height/Weight: Height 1.83 m Weight 104.326 kg Temp Pulse Resp BP Pulse Ox O2 Del Method 97.8 F 60 18 166/75 99 Room Air 02/18/24 05:59 02/18/24 05:59 02/18/24 05:59 02/18/24 05:59 02/18/24 05:59 02/18/24 05:59 Operation Date: 02/18/24 07:00 Proposed Procedures p Akhil Robot Total Hip Arthroplasty posterior approach(Right) - Du Correa DO Familial anesthetic complications: None Was Beta Stephon taken within 24 hours: N/A Was Clonidine taken within 24 hours: N/A Last intake: Intake Last Liquid Date 02/17/24 Last Liquid Time 16:00 Last Solid Date 02/17/24 Last Solid Time 16:00 Social No alcohol and No tobacco Exam alert, oriented x 3, clear to auscultation bilaterally and regular rate & rhythm Airway Mallampati: Class II Dentition: other (All permanent implants) CV/HEM Arrythmia, Coronary Artery Disease (HX CABG), Hypertension and Myocardial Infarction GI Gastroesophageal Reflux Disease Metabolic Hyperlipidemia Anesthetic Plan ASA status: 3 Anesthesia: General Risk of > 500 ml blood loss (7ml/kg in children): Yes, adequate IV access and fluids planned Other Pertinent Information patient took plavix on Sunday - will require general Medications/Allergies Home Medications Medication Instructions Recorded Confirmed Last Taken Type nitroglycerin 0.4 mg sublingual 0.4 mg sublingual Q5M PRN chest 02/16/20 02/18/24 Unknown Rx tablet (Nitrostat) pain #90 tabs vit C,E,zinc,copper-cvloc0y 250 1 cap PO DAILY 04/25/21 02/18/24 01/28/24 History mg-lutein 5 mg-zeaxanthin 1 mg capsule (Ocuvite Adult 50 Plus) offloader brace right knee #1 ea 02/07/23 01/29/24 Unknown Rx furosemide 20 mg tablet 20 mg PO DAILY PRN edema #30 tabs 12/06/23 02/18/24 Unknown Rx krill oil 500 mg capsule 500 mg PO DAILY 02/04/24 02/18/24 01/28/24 History atorvastatin 40 mg tablet 40 mg PO DAILY 02/18/24 02/18/24 02/17/24 History clopidogrel 75 mg tablet 75 mg PO DAILY 02/18/24 02/18/24 02/12/24 History famotidine 20 mg tablet 20 mg PO BID 02/18/24 02/18/24 02/17/24 History fenofibrate nanocrystallized 145 145 mg PO DAILY 02/18/24 02/18/24 02/17/24 History mg tablet finasteride 5 mg tablet 5 mg PO DAILY 02/18/24 02/18/24 02/17/24 History fluvoxamine 100 mg tablet 100 mg PO TID 02/18/24 02/18/24 02/17/24 History lisinopril 20 mg tablet 20 mg PO DAILY 02/18/24 02/18/24 02/17/24 History tamsulosin 0.4 mg capsule 0.4 mg PO BID 02/18/24 02/18/24 02/17/24 History Allergies Allergy/AdvReac Type Severity Reaction Status Date / Time No Known Allergies Allergy Verified 02/18/24 05:54 Current Medications Generic Name Dose Route Start Last Admin Trade Name Freq PRN Reason Stop Dose Admin Lactated Ringer's 500 mls @ 500 mls/hr 02/18/24 05:54 02/18/24 06:18 Lactated Ringers IV 02/18/24 06:53 500 mls/hr .Q1H ONE Administration PFSH Anesthesia Medical History Enrolled in chronic care management Incomplete bladder emptying Increased prostate specific antigen (PSA) velocity Orthostatic hypotension Macrocytosis without anemia Benign prostatic hyperplasia with urinary retention History of kidney stones Atherosclerotic heart disease Bradyarrhythmia Arthritis Depression Ventricular arrhythmia Degenerative lumbar spinal stenosis Hypertension Hyperlipidemia GERD (gastroesophageal reflux disease) Benign prostate hyperplasia Cataract right 2013 Surgical History Hx of CABG 2009 H/O shoulder surgery 2010, 2014 H/O laminectomy 2016 History of tonsillectomy Family History Mother Heart disease Chronic kidney disease (CKD) Grandmother CAD (coronary artery disease) Stroke Grandfather Lung disease Family/Other Lung disease Denies family history of Diabetes Clotting disorder Dementia Suicide Anesthesia complication Bleeding disorder Cancer Social History Smoking and tobacco/nicotine status: never used tobacco/nicotine Alcohol intake: never Substance/Drug Use: never Household members: spouse Housing: House Marital status: service: Yes Current occupational status: retired Do you think of yourself as: Straight/Heterosexual Current gender identity: Male Data Anesthesia Cardiac Studies: Echocardiogram 09/11/22
--- NOTE | 2024-02-18 06:57 | W.PM.OPSFHP ---
Same Day Surgery H&P Indication for Procedure/HPI DATE OF PROCEDURE: February 18, 2024 CHIEF COMPLAINT/INDICATIONFOR SURGICAL PROCEDURE: Right hip degenerative joint disease PREOP DIAGNOSIS: Right hip degenerative joint disease PLANNED PROCEDURE: Operation Date: 02/18/24 07:00 Proposed Procedures p Akhil Robot Total Hip Arthroplasty posterior approach(Right) - Du Correa DO Medications/Allergies* Home Medications Medication Instructions Recorded Confirmed Type vit C,E,zinc,copper-zvisz1u 250 1 cap PO DAILY 04/25/21 02/18/24 History mg-lutein 5 mg-zeaxanthin 1 mg capsule (Ocuvite Adult 50 Plus) krill oil 500 mg capsule 500 mg PO DAILY 02/04/24 02/18/24 History atorvastatin 40 mg tablet 40 mg PO DAILY 02/18/24 02/18/24 History clopidogrel 75 mg tablet 75 mg PO DAILY 02/18/24 02/18/24 History famotidine 20 mg tablet 20 mg PO BID 02/18/24 02/18/24 History fenofibrate nanocrystallized 145 145 mg PO DAILY 02/18/24 02/18/24 History mg tablet finasteride 5 mg tablet 5 mg PO DAILY 02/18/24 02/18/24 History fluvoxamine 100 mg tablet 100 mg PO TID 02/18/24 02/18/24 History lisinopril 20 mg tablet 20 mg PO DAILY 02/18/24 02/18/24 History tamsulosin 0.4 mg capsule 0.4 mg PO BID 02/18/24 02/18/24 History Allergies/Adverse Reactions Allergy/AdvReac Type Severity Reaction Status Date / Time No Known Allergies Allergy Verified 02/18/24 05:54 Pertinent History/Comorbid Conditions* Medical History (Updated 10/03/23 @ 20:26 by Yoana Degroot MD) Enrolled in chronic care management Incomplete bladder emptying Increased prostate specific antigen (PSA) velocity Orthostatic hypotension Macrocytosis without anemia Benign prostatic hyperplasia with urinary retention History of kidney stones Atherosclerotic heart disease Bradyarrhythmia Arthritis Depression Ventricular arrhythmia Degenerative lumbar spinal stenosis Hypertension Hyperlipidemia GERD (gastroesophageal reflux disease) Benign prostate hyperplasia Cataract right 2013 Surgical History (Updated 04/18/19 @ 08:52 by Katy Gustafson MD) Hx of CABG 2008 H/O shoulder surgery 2010, 2013 H/O laminectomy 2016 History of tonsillectomy Family History (Updated 04/21/20 @ 12:15 by Deanna Strauss RN) CAD (coronary artery disease) Grandmother Heart disease Mother Chronic kidney disease (CKD) Mother Lung disease Grandfather Family/Other Stroke Grandmother Denies family history of Diabetes Clotting disorder Dementia Suicide Anesthesia complication Bleeding disorder Cancer Social History Smoking and tobacco/nicotine status: never used tobacco/nicotine Alcohol intake: never Substance/Drug Use: never Household members: spouse Housing: House Marital status: service: Yes Current occupational status: retired Do you think of yourself as: Straight/Heterosexual Current gender identity: Male Pertinent Exam Findings alert, oriented x 3, operative site marked and procedure specific exam findings Please refer to detailed orthopedic examination on 12/18/2023 listed below: Right Hip-pain with range of motion and abrupt endpoint with external rotation. Severely limited range of motion, pain with hip flexion internal rotation reproduced at the groin. pain occurs with external rotation as well.. Palpable tenderness in groin. No tenderness over greater trochanter. Patient able to perform straight leg raise and dorsiflex and plantarflex foot. Recommendations Surgery/Procedure today Other Plans: Plan to proceed to the OR today for a right total hip arthroplasty?Akhil robotic assisted. Patient's continued to have significant right hip pain he has failed outpatient treatment we talked about the ins and outs of his procedure the risk benefits complication alternatives with surgery and through shared decision making patient like to proceed with right total hip arthroplasty?Akhil robotic assisted through posterior approach. Patient is clear the preoperative clearance process and has been medically optimized prior to proceeding with surgical intervention no changes health at this point time. Patient understands and agrees with current plan. Agrees to proceed with right total hip arthroplasty today. Coding Level of Care Code Acute Code for Troy Valladares
[2024-02-18] MEDS: ceFAZolin 2,000 MG in sodium chloride 0.9% (plus) 50 ML 100 MG IV ×3 (07:04→22:26)
[2024-02-18] MEDS: tranexamic acid 1,000 mg/10mL SDV 1000 MG IV (07:21)
[2024-02-18 08:24] LABS: Basophils # 0.1 10^3/uL (0.0-0.1); Basophils % 0.9 %; Eosinophils # 0.3 10^3/uL (0.0-0.8); Eosinophils % 3.2 %; Hematocrit 39.8 % (37-53); Lymphocytes # 2.3 10^3/uL (0.8-4.8); Lymphocytes % 29.7 %; Mean Corpuscular HGB Conc 33.2 g/dL (30-55); Mean Corpuscular Hemoglobin 34.3 pg (27-33); Mean Corpuscular Volume 103.4 fl (82-101); Mean Platelet Volume 12.4 fL (7.4-10.4); Monocytes # 0.9 10^3/uL (0.2-0.9); Monocytes % 11.2 %; Neutrophils % 54.7 %; Nucleated Red Blood Cells % 0 %; Platelet Count 234 10^3/cmm (157-399); Red Blood Count 3.85 10^6/uL (3.85-5.65); Red Cell Distribution Width 15.1 % (12.1-15.1); White Blood Count 7.85 10^3/uL (3.29-11.43)
[2024-02-18 08:45] LABS: Anion Gap 12.5 (5-19); Blood Urea Nitrogen 15 mg/dL (8-23); Calcium 8.4 mg/dL (8.5-10.5); Carbon Dioxide 24 mmol/L (22-29); Chloride 109 mmol/L (98-107); Creatinine Clr Calc Pharmacy 65.7719; Glucose 86 mg/dL (65-115); Osmolality Calculated 294 mOsm/kg (285-295); Potassium 3.5 mmol/L (3.5-5.1); Sodium 142 mmol/L (136-145)
[2024-02-18] MEDS: vancomycin 1,000 MG SDV 2000 MG XX (08:52)
--- NOTE | 2024-02-18 09:37 | XRR_ITS ---
PROCEDURE INFORMATION: Exam: XR Right Hip Exam date and time: 02/18/2024 11:05 AM Age: 83 years old Clinical indication: Device placement; Other: RT neel; Prior surgery; Surgery date: Post-operative (0-2 days); Additional info: Post op neel, do in pacu TECHNIQUE: Imaging protocol: Radiologic exam of the right hip. Views: 1 view hip with pelvis when performed. COMPARISON: CT hip RT [facility] [id number] 02/11/2024 8:07 AM FINDINGS: Bones/joints: Status post right total hip arthroplasty with intact hardware and adequate alignment. No acute fracture or dislocation. Regional soft tissue swelling and air lucency expected in the immediate postoperative setting. Sacroiliac joint, pubic symphysis, and left hip degenerative change. Soft tissues: See Bones/joints finding. XR/XR hip RT 2-3V wo/w pel* [id number] IMPRESSION: Status post right total hip arthroplasty without evidence of immediate complication.
--- NOTE | 2024-02-18 09:38 | PM.OP ---
Operative Report Date of procedure: February 18, 2024 Surgeon: Du Correa DO Turntable Engineer: Reji Correa PA-C: PA was necessary for assistance in this case with leg positioning, hip reductions retraction and protection of neurovascular structures as well as assistance in implantation wound closure and dressing application. Procedure: Preop Diagnosis?Right hip degenerative joint disease Post-op diagnosis: Right hip degenerative joint disease Procedure done: Right total hip arthroplasty?robotic assisted Akhil?posterior?approach Implants: [place] total hip arthroplasty implants 60 mm cluster hole acetabular shell 6.5 mm x (20 & 15mm) acetabular screw Alpha code G MDM cementless metal liner [place] insignia femoral stem size #9, high offset Alpha code G MDM +8 mm head Surgeon: Du Correa DO Estimated blood loss: 200 mL IV fluids: 1500 mL Urine output: 450 mL Complications: None Condition: stable Disposition: floor Brief History: Patient's been seen and worked up by myself in the outpatient setting and findings consistent with Right hip degenerative joint disease. He has failed conservative treatment this is causing him severe pain and decreased mobility. We talked about his treatment options as far as nonoperative and operative intervention. he ultimately through shared decision-making would like to proceed with a Right total hip arthroplasty. we detailed out his risk benefits complications alternatives to surgical and nonsurgical treatment options. Understanding his risk for surgery he elects to proceed with Right total hip arthroplasty robotic assisted Akhil utilizing a?posterior?approach. All questions answered. He elects proceed with surgery today. Procedure: Patient was seen evaluate in preoperative holding area.? Consent was reviewed and signed with patient.? Correct extremity was then marked.? Patient seen evaluate by anesthesia department once cleared for surgery pt was taken back to the operative suite.? Patient underwent spinal anesthesia per the anesthesia department.? This point time pt was then placed on the operative suite and table.? Pt was then placed in lateral decubitus patient worked with the Right hip up.? Patient was secured in the lateral decubitus position with pegboard. All bony prominences well-padded he was properly secured to the bed.? At this point time the Right lower extremity was then prepped and draped in standard orthopedic fashion with care not to drape out the iliac wing for pelvic array placement.? Final timeout performed.? Patient received appropriate preoperative antibiotics. Started off with establishment of my pelvic array pins.? A small longitudinal incision was made directly over the iliac wing.? Sharp scalpel excision through skin and subcutaneous tissue directly onto bone.? Next I then loaded my pelvic pin.? This was then drilled through the iliac wing corridor with excellent fixation.? Next I then loaded the guide which was placed directly onto bone and then subsequently placed 2 more pins to secure fixation.? Next the pelvic array was then sent had excellent visualization with the Akhil robot and was secured. EKG pad was placed on the distal lateral aspect of the femur and sterile aseptic technique and use as my distal reference point. Next I proceeded with my standard?posterior?approach.? Sharp scalpel through skin and subcutaneous tissue this was centered over the greater trochanter.? I then utilized a Bello elevator over the gluteus chad fascia.? Next the fascia was then split longitudinally with bipolar electrocautery.? Next a Charnley retractor was then placed.? All bone was then placed into the abductors.? A standard full-thickness release of the piriformis and the short external rotators along with the capsule to grade 1 full thick sleeve for later repair was then placed straight down to the lesser trochanter.? Lesser trochanter was then subsequently identified.? Prior to dislocating the hip we then placed our greater trochanter femur checkpoint.? We marked our appropriate checkpoint for referencing on pelvic array.? At this point in time we then established both of our checkpoints as well as referencing for leg lengths I utilized the EKG pad as my distal reference point. The legs were marked and traced to have appropriate position on the drapes to allow for accurate reading.? Preoperative leg lengths set. Once this was then established I then proceeded with dislocation of the femoral head.? At this point Hohmann's were then placed superiorly and inferiorly along the femoral neck..? The sciatic nerve was protected throughout this case.? At this point time I then utilized the Akhil robot and referencing point to reference different aspects along the femoral head and neck for my appropriate neck length.? These were referenced on the inferior mid substance as well as up into the superior shoulder of the femoral neck.? This marked my oscillating saw was used to make my femoral neck cut.? Femoral head was then removed. Next the leg was placed in appropriate position and my anterior and?posterior?acetabular retractors then placed.? Next I excised the labrum and then remove the pulvinar.? I did do a small release of the inferior capsule which was severely taut to allow for easier placement of my reamers as well as reduction.? Acetabulum was thoroughly irrigated. At this point in time keeping my retractors in place I subsequently loaded up the [employer] robot for my acetabular reaming.?? Next I then set my 58 reamer under the [employer] robot and subsequently held this with appropriate preplanned preop planned version of 40 degrees of abduction angle as well as 20 degrees of anteversion.? I subsequently reamed up to a size 60 which had excellent circumferential purchase as well as bleeding bone. This was the appropriate size and selected as my final implant size. This preoperative plan was then subsequently made to accommodate for ranges of motion of impingement?that was assessed preoperatively utilizing the [employer] robotic software technology. ? We opened up the acetabular shell clusterhole of the 60 mm [place] this was then loaded onto my impacting system and then I subsequently impacted this to appropriate depth.? This was then removed from the robot and I used the Akhil probe at the center to confirm on the CT scan?that this was down on bone which it was.? Next I then drilled and placed 2 acetabular screws with excellent fixation these were drilled and measured to be 20 and 15 mm this was in the?posterior?superior aspect of the acetabulum had excellent bite and fixation.? The cup was solid and had excellent press-fit fixation. next, opened the alpha code G MDM cementless liner then subsequently placed in appropriate position and impacted into place.? I then placed a sponge into the acetabulum to protect the polyethylene while my femur preparation was performed.? At this point time I then utilized a small rongeur to clear off the shoulder of the femoral neck to clear out the soft tissue envelope for my box osteotome.? Next box osteotome was used a canal finder was placed as well as a lateral lysing rattail rasp.? Once I was appropriately lateralized I then sequentially broached up to a size 8 femoral stem.? This was impacted to appropriate depth and flushed with my femoral neck cut.? This point I loaded a standard size neck and subsequently reduced the hip.? At this point in time the hip was taken through range of motion before evaluating with the robot on leg lengths.? Patient appeared to have room to shorten as a result I subsequently plan to place a size stem larger to have a slightly more length. This would allow for more trialing options.? I subsequently broached up to a size 9 Thee insignia femoral stem and this was determined to being my satisfactory femoral implant size with excellent fixation purchase. Plan was to trial off of this for my final stem. My trials were then removed and then subsequently impacted my [place] insignia high offset stem to the same level.? This point in time I trialed up to a +8 mm neck length which helped match with Akhil robotic assistance had appropriate leg lengths comparative to the contralateral hip and this was confirmed clinically as well as had excellent stability I felt as though this was best combination with leg lengths being equal as well as with stability and elected for the final +8 mm MDM femoral head. Final MDM femoral head component was then opened and the trunnion was dried and this was impacted with excellent fixation and the hip was subsequently reduced.? We measured our final leg lengths which were appropriate patient had excellent stability in all ranges of motion.? This point time a robotic pins and checkpoints were removed.? I remove the femur checkpoint as well as my pelvic array and iliac wing pins.? Appropriate counts were then made.? This point time thoroughly irrigated the wound bed with pulse lavage.? Vancomycin powder was then sprinkled into the wound bed.? I then performed a standard capsular and external rotator repair utilizing #5 Ethibond and this was tied and repaired through bone tunnels hip, sciatic nerve was protected throughout this portion of the case. Was then kept in abduction external rotation and subsequently closed the fascial layer with Ethibond suture as well as running strata fix suture.? I then closed the deep subcutaneous layer as well as superficial subcutaneous layer with running strata fix suture as well as 3-0strata fix for skin.? Prineo glue dressing was then placed over the skin.? I then irrigated the pelvic array pin site.? There is were then closed with interrupted 0, 2-0 Vicryl suture and Monocryl as well as Prineo glue for the skin.? Incisions were then covered with deborah and Silverlon dressing.? Patient was awakened from anesthesia and taken to PACU in stable condition Disposition: Patient taken to PACU in stable condition.? Patient will receive appropriate discharge instructions as well as DVT prophylaxis and pain medication.? Patient will be admitted to the floor for observation should be evaluated by the internal medicine team for medical management.? Patient received appropriate DVT prophylaxis as well as pain medication PT/OT weightbearing as tolerated Right lower extremity with?posterior?hip precautions, Postoperative Abx and TXA.? We will follow-up with patient in the office in 2 weeks.? Patient understands agrees with current plan.? All questions answered.
--- NOTE | 2024-02-18 09:55 | P.BOP_ITS ---
Date of Procedure: [February 18, 2024] Surgeon: [Dr. Correa DO] Manager Of Development(s): [Reji Correa PA-C] Procedure(s) performed: [Right total hip arthroplasty with Akhil robotic assist- posterior approach] Findings of the procedure(s): [Right hip degenerative joint disease. Surgery went well and as planned.] Estimated blood loss: [200 mL] Specimen(s) removed: [Femoral head] Post-operative diagnosis: [Right hip degenerative joint disease]
--- NOTE | 2024-02-18 09:58 | PM.PACU ---
PACU note Narrative: Patient is a 83-year-old male just underwent a right hip total arthroplasty. Pt transferred to PACU in stable condition. Dressing is dry. pt is awake and alert. pt can wiggle toes and plantarflex and dorsiflex foot. pt able to perform straight leg raise, Femoral nerve intact. Distal pulses are palpable toes are warm and well-perfused. Cap refill is normal and under 2 seconds. Sensation to foot is intact. Pain is controlled. Exam: awake Disposition: admitted
--- NOTE | 2024-02-18 10:05 | P.CONIM_ITS ---
Providers/Reason For Consult 2 Consulting Physician/Specialty*: Petros Conway MD, hospitalist Reason for Consult*: Medical management Requesting Physician: Dr. Correa Attending Physician: Du Correa DO Primary Care Provider: Parris Ashby MD History of Present Illness History of Present Illness Carlo Dalton is a 83 year old male undergoing right total hip arthroplasty today for degenerative joint disease. I have been asked to see the patient, in consultation for medical management. Patient denies any pain currently, but is somewhat sleepy as he is directly postoperative anesthesia. He has a past medical history of coronary disease for which is received bypass in the past, hypertension, hyperlipidemia, bradycardia, GERD, BPH. There were no complications with surgery, EBL 200, general anesthesia, Eliquis is expected to be used for DVT prophylaxis. Review of Systems 2 General: Reports: 10 or more systems reviewed and unremarkable except in HPI and below Medications/Allergies Home Medications Medication Instructions Recorded Confirmed Last Taken Type nitroglycerin 0.4 mg sublingual 0.4 mg sublingual Q5M PRN chest 02/16/20 02/18/24 Unknown Rx tablet (Nitrostat) pain #90 tabs vit C,E,zinc,copper-nqvib2l 250 1 cap PO DAILY 04/25/21 02/18/24 01/28/24 History mg-lutein 5 mg-zeaxanthin 1 mg capsule (Ocuvite Adult 50 Plus) offloader brace right knee #1 ea 02/07/23 01/29/24 Unknown Rx furosemide 20 mg tablet 20 mg PO DAILY PRN edema #30 tabs 12/06/23 02/18/24 Unknown Rx krill oil 500 mg capsule 500 mg PO DAILY 02/04/24 02/18/24 01/28/24 History atorvastatin 40 mg tablet 40 mg PO DAILY 02/18/24 02/18/24 02/17/24 History clopidogrel 75 mg tablet 75 mg PO DAILY 02/18/24 02/18/24 02/12/24 History famotidine 20 mg tablet 20 mg PO BID 02/18/24 02/18/24 02/17/24 History fenofibrate nanocrystallized 145 145 mg PO DAILY 02/18/24 02/18/24 02/17/24 History mg tablet finasteride 5 mg tablet 5 mg PO DAILY 02/18/24 02/18/24 02/17/24 History fluvoxamine 100 mg tablet 100 mg PO TID 02/18/24 02/18/24 02/17/24 History lisinopril 20 mg tablet 20 mg PO DAILY 02/18/24 02/18/24 02/17/24 History tamsulosin 0.4 mg capsule 0.4 mg PO BID 02/18/24 02/18/24 02/17/24 History Allergies Allergy/AdvReac Type Severity Reaction Status Date / Time No Known Allergies Allergy Verified 02/18/24 05:54 PFSH Acute 2 PFSH: Medical History Enrolled in chronic care management Incomplete bladder emptying Increased prostate specific antigen (PSA) velocity Orthostatic hypotension Macrocytosis without anemia Benign prostatic hyperplasia with urinary retention History of kidney stones Atherosclerotic heart disease Bradyarrhythmia Arthritis Depression Ventricular arrhythmia Degenerative lumbar spinal stenosis Hypertension Hyperlipidemia GERD (gastroesophageal reflux disease) Benign prostate hyperplasia Cataract right 2013 Surgical History Hx of CABG 2008 H/O shoulder surgery 2010, 2013 H/O laminectomy 2016 History of tonsillectomy Family History Mother Heart disease Chronic kidney disease (CKD) Grandmother CAD (coronary artery disease) Stroke Grandfather Lung disease Family/Other Lung disease Denies family history of Diabetes Clotting disorder Dementia Suicide Anesthesia complication Bleeding disorder Cancer Social History Smoking and tobacco/nicotine status: never used tobacco/nicotine Alcohol intake: never Substance/Drug Use: never Household members: spouse Housing: House Marital status: service: Yes Current occupational status: retired Do you think of yourself as: Straight/Heterosexual Current gender identity: Male Vitals/I&O/Wt Last Vital Signs Temp 97.8 F 02/18/24 05:59 Pulse 60 02/18/24 05:59 Resp 18 02/18/24 05:59 BP 166/75 02/18/24 05:59 Pulse Ox 99 02/18/24 05:59 O2 Del Method Room Air 02/18/24 05:59 02/17/24 02/18/24 02/18/24 22:59 06:59 14:59 Intake Total 1150 / 1150 Output Total 650 / 650 Balance 500 / 500 Weight last 48 hrs Weight 104.326 kg Physical Exam 2 Narrative: General exam is a white male, sleepy but responsive HEENT: Atraumatic. Oropharynx clear Neck supple no lymphadenopathy thyromegaly Cardiovascular bradycardic, regular, no murmur Lungs clear Abdomen is soft with positive bowel sounds. No obvious organomegaly exams deferred Extremities no sinus clubbing edema, cap refill brisk Skin no rash Neuro no focal deficits Urinary Catheter Management: Jeronimo: Cath Placed During This Visit: yes Urinary Catheter Date of Insertion: 02/18/24 Urinary Catheter Time of Insertion: 07:20 Data 02/18/24 06:14 02/18/24 06:14 Other Labs: EKG was reviewed by me demonstrating heart rate of 46, left axis deviation, no acute changes MCV is noted to be elevated. Recent TSH this year was normal. No B12 noted. A&P Assessment and plan (1) Degenerative joint disease of right hip: Directly postoperative right hip total hip arthroplasty. Doing well. EBL 200. General anesthesia. No obvious complications. Therapy consultation Eliquis will be used for DVT prophylaxis. Note patient is also on Plavix for coronary disease Pain control CBC, BMP in the morning (2) Hypertension: Patient with history of hypertension. May resume lisinopril Qualifiers: Hypertension type: essential hypertension Qualified Code(s): I10 - Essential (primary) hypertension (3) Atherosclerotic heart disease: Continue Plavix, fenofibrate, atorvastatin Beta-clemencia not given secondary to patient's underlying bradycardia Qualifiers: Coronary Disease-Associated Artery/Lesion type: bypass graft, other A ssociated angina: without angina Qualified Code(s): I25.810 - Atherosclerosis of coronary artery bypass graft(s) without angina pectoris Plan Other medical problems as outlined in past medical history Thank you for this consultation Consult Attestations 2 Medical Necessity Statement: As per primary Diagnoses Degenerative joint disease of right hip M16.11 Essential hypertension I10 Hypertension type: essential hypertension Atherosclerosis of other coronary artery bypass graft without angina pectoris I25.810 Coronary Disease-Associated Artery/Lesion type: bypass graft, other Associated angina: without angina Time Spent (min) 39
--- NOTE | 2024-02-18 10:35 | ANE.PACU2 ---
Inpatient post-anesthesia follow up: Airway intact: Yes Vital signs: Temperature 97.6 F Pulse Rate 52 Respiratory Rate 17 Blood Pressure 117/62 Pulse Oximetry 98 Oxygen Delivery Me thod Room Air Oxygen Flow Rate Fraction of Inspir ed Oxygen Hydration adequate: Yes Nausea and vomiting: No Pain level: 1 Mental status: Baseline
--- NOTE | 2024-02-18 10:51 | SUR.PHASEI ---
1045 Pt taken to rrom 263. VSS Temp 98.3 Fabi looked at the dressing and accepted the patient with no issues or concerns.
[2024-02-18] MEDS: lactated ringers 1,000 ML 100 ML IV ×2 (11:41→21:03)
[2024-02-18] MEDS: tranexamic acid 1,000 MG/100 ML PREMIX 600 MG IV (13:59)
[2024-02-18] MEDS: chlorhexidine gluconate 0.12% Btl 473 mL 30 ML MUCOUS MEM ×3 (14:00→21:03)
[2024-02-18] MEDS: TRAMadol 50 mg Tablet PO (14:01)
[2024-02-18] MEDS: oxyCODONE 5 mg IR Tab/Cap PO (17:55)
[2024-02-18] MEDS: iron polysaccharide complex 150 mg Capsule PO (17:56)
[2024-02-18] MEDS: famotidine 20 mg Tablet PO (17:56)
[2024-02-18] MEDS: calcium carb-vit d 600mg/400unit 1 Tablet 1 EACH PO (17:56)
[2024-02-18] MEDS: sennosides-docusate Tablet 2 TAB PO (17:56)
[2024-02-18] MEDS: mupirocin oint 22 gm 1 APPLIC NASAL (17:56)
[2024-02-18] MEDS: tamsulosin 0.4 mg Capsule PO (17:56)
[2024-02-19 04:53] VITALS: BP 134/65; PULSE 54; RESP 17; TEMP 37; O2SAT 94
[2024-02-19 06:03] LABS: Basophils % 0.2 %; Hematocrit 32.5 % (37-53); Lymphocytes # 1.3 10^3/uL (0.8-4.8); Lymphocytes % 12.4 %; Mean Corpuscular HGB Conc 32.6 g/dL (30-55); Mean Corpuscular Hemoglobin 34.1 pg (27-33); Mean Corpuscular Volume 104.5 fl (82-101); Mean Platelet Volume 12.2 fL (7.4-10.4); Monocytes # 1.9 10^3/uL (0.2-0.9); Monocytes % 18.2 %; Neutrophils # 6.97 10^3/uL (1.8-7.7); Neutrophils % 68.8 %; Nucleated Red Blood Cells % 0 %; Platelet Count 171 10^3/cmm (157-399); Red Blood Count 3.11 10^6/uL (3.85-5.65); Red Cell Distribution Width 14.9 % (12.1-15.1); White Blood Count 10.14 10^3/uL (3.29-11.43)
[2024-02-19] MEDS: acetaminophen 1,000 MG/100 ML PIGGYBACK 400 MG IV (06:05)
[2024-02-19 06:06] VITALS: RESP 16
[2024-02-19] MEDS: oxyCODONE 5 mg IR Tab/Cap PO (06:06)
[2024-02-19] MEDS: lactated ringers 1,000 ML 100 ML IV (06:07)
[2024-02-19 06:19] LABS: Blood Urea Nitrogen 18 mg/dL (8-23); Calcium 7.9 mg/dL (8.5-10.5); Carbon Dioxide 24 mmol/L (22-29); Chloride 109 mmol/L (98-107); Creatinine Clr Calc Pharmacy 65.8395; Glucose 123 mg/dL (65-115); Osmolality Calculated 297 mOsm/kg (285-295); Sodium 142 mmol/L (136-145)
[2024-02-19 06:20] LABS: Anion Gap 12.9 (5-19); Potassium 3.9 mmol/L (3.5-5.1)
[2024-02-19] MEDS: ceFAZolin 2,000 MG in sodium chloride 0.9% (plus) 50 ML 100 MG IV (06:36)
[2024-02-19 07:26] VITALS: BP 137/63; PULSE 53; RESP 16; TEMP 37.1; O2SAT 94
[2024-02-19] MEDS: chlorhexidine gluconate 0.12% Btl 473 mL 30 ML MUCOUS MEM ×2 (08:40→14:07)
[2024-02-19] MEDS: mupirocin oint 22 gm 1 APPLIC NASAL (08:40)
[2024-02-19] MEDS: fenofibrate 145 mg Tablet PO (08:40)
[2024-02-19] MEDS: famotidine 20 mg Tablet PO (08:41)
[2024-02-19] MEDS: tamsulosin 0.4 mg Capsule PO (08:41)
[2024-02-19] MEDS: multivitamin therapeutic Tablet 1 TAB PO (08:41)
[2024-02-19] MEDS: calcium carb-vit d 600mg/400unit 1 Tablet 1 EACH PO (08:41)
[2024-02-19] MEDS: clopidogrel 75 mg Tablet PO (08:41)
[2024-02-19] MEDS: atorvastatin 40 mg Tablet PO (08:41)
[2024-02-19] MEDS: sennosides-docusate Tablet 2 TAB PO (08:41)
[2024-02-19] MEDS: apixaban 5 mg Tablet 2.5 MG PO (08:41)
[2024-02-19] MEDS: lisinopril 20 mg Tablet PO (08:41)
[2024-02-19] MEDS: iron polysaccharide complex 150 mg Capsule PO (08:42)
--- NOTE | 2024-02-19 08:58 | P.PN_ITS ---
Subjective 2 Subjective: Carlo reports he is doing well. Pain is under control. He is ambulating from bed to chair without too much difficulty. No issues with any medications. We discussed in detail the risks and benefits of Eliquis added to his Plavix. Medications: Reviewed: Yes Vitals/I&O/Wt Last Vital Signs Temp 98.7 F 02/19/24 07:26 Pulse 53 L 02/19/24 07:26 Resp 16 02/19/24 07:26 BP 137/63 02/19/24 07:26 Pulse Ox 94 02/19/24 07:26 O2 Del Method Room Air 02/19/24 07:26 02/18/24 02/19/24 02/19/24 22:59 06:59 14:59 Intake Total 2246.667 / 3976.667 1656.667 / 5633.334 50 / 50 Output Total 1100 / 1750 300 / 2050 Balance 1146.667 / 2226.667 1356.667 / 3583.334 50 / 50 Weight last 48 hrs Weight 104.553 kg Weight 104.326 kg Weight 104.326 kg Physical Exam 2 Narrative: General exam no distress Neck supple no lymphadenopathy thyromegaly Cardiovascular bradycardic, regular, no murmur Lungs clear Abdomen is soft with positive bowel sounds. No obvious organomegaly Extremities no sinus clubbing edema, cap refill brisk. Wound clean and dry Urinary Catheter Management: Jeronimo: Cath Placed During This Visit: yes, but has since been removed by the nurse Reason for Continuing Indwelling Catheter: Decision to DC Catheter Urinary Catheter Date of Insertion: 02/18/24 Urinary Catheter Time of Insertion: 07:20 Date Urinary Catheter Removed: 02/19/24 Time Urinary Catheter Discontinued: 06:30 Data 02/19/24 05:43 02/19/24 05:43 A&P Assessment and plan (1) Degenerative joint disease of right hip: Postoperative day #1 right hip total hip arthroplasty. Doing well. EBL 200. General anesthesia. No obvious complications. Therapy consultation appreciated Eliquis will be used for DVT prophylaxis. Note patient is also on Plavix for coronary disease Pain control achieved Mild acute postoperative blood loss anemia, asymptomatic, no need for transfusion Discontinue IV fluids (2) Hypertension: Patient with history of hypertension. Continuing home medications, stable Qualifiers: Hypertension type: essential hypertension Qualified Code(s): I10 - Essential (primary) hypertension (3) Atherosclerotic heart disease: Continue Plavix, fenofibrate, atorvastatin Beta-clemencia not given secondary to patient's underlying bradycardia Qualifiers: Coronary Disease-Associated Artery/Lesion type: bypass graft, other A ssociated angina: without angina Qualified Code(s): I25.810 - Atherosclerosis of coronary artery bypass graft(s) without angina pectoris Plan Other medical problems as outlined in past medical history Thank you for this consultation Attestations 2 Medical Necessity Statement*: As per primary, medically stable Diagnoses Degenerative joint disease of right hip M16.11 Essential hypertension I10 Hypertension type: essential hypertension Atherosclerosis of other coronary artery bypass graft without angina pectoris I25.810 Coronary Disease-Associated Artery/Lesion type: bypass graft, other Associated angina: without angina Time Spent (min) 21
[2024-02-19 11:45] VITALS: BP 113/62; PULSE 65; RESP 18; O2SAT 97
--- NOTE | 2024-02-19 13:12 | PM.DCS ---
Discharge Providers Date of Admission: 02/18/24 09:43 Date of Discharge: February 19, 2024 Attending Provider at Admission: Du Correa DO Attending Provider at Discharge: Du Correa DO Consults: Dr. Conway hospitalist Primary Care Provider: Parris Ashby MD Diagnoses at Discharge Discharge Diagnosis (1) Degenerative joint disease of right hip: Status: Resolved (2) Hypertension: Status: Chronic Qualifiers: Hypertension type: essential hypertension Qualified Code(s): I10 - Essential (primary) hypertension (3) Atherosclerotic heart disease: Status: Acute Qualifiers: Associated angina: without angina Coronary Disease-Associated Artery/Lesion type: bypass graft, other Qualified Code(s): I25.810 - Atherosclerosis of coronary artery bypass graft(s) without angina pectoris Reason for Visit Reason for Visit: M16.11 Brief History: Status post right total hip arthroplasty Hospital Course Hospital Course Patient was brought to the hospital through the preoperative holding area with plan for right total hip arthroplasty for right hip dengerative joint disease. Once cleared by anesthesia for surgery subsequently was taken back to the operative suite underwent anesthesia per the anesthesia department and then underwent right total hip arthroplasty with Akhil robotic assistance posterior approach without any complications. Patient was then subsequently taken back to PACU in stable condition recovering well. Once recovered, patient was then subsequently admitted to the floor postoperatively. Internal medicine was consulted for medical management assistance. Patient weightbearing as tolerated to the right lower extremity, posterior hip precautions. PT/OT. Pain control. DVT prophylaxis. Postoperative antibiotics and TXA. dressing was change as needed. Internal medicine was on board and appreciate their medical management and assistance. Pt was determined on postoperative day 1 the patient was stable for discharge from orthopedic as well as internal medicine standpoint. Patient's labs were monitored daily. Patient will receive appropriate pain medication as well as DVT prophylaxis postoperatively. Appropriate discharge instructions as well. Patient was then discharged in stable condition. Patient will discharge home. Pt will follow-up with Orthopedics in the office in 2 weeks. Patient understands and agrees with current plan. All questions answered. Understands there is any issues or concerns and contact the office. Physical Exam Narrative: Examination of the right hip demonstrates dressings are on in place clean dry and intact with good seal normal postoperative swelling and ecchymosis appreciated at the right hip compartments are soft compressible. Patient is able to wiggle toes plantarflex and dorsiflex ankle. Sensations intact light touch distally. Distal pulses are palpable. Abduction pillow is on in place. Urinary Catheter Management: Jeronimo: Cath Placed During This Visit: yes, but has since been removed by the nurse Reason for Continuing Indwelling Catheter: Decision to DC Catheter Urinary Catheter Date of Insertion: 02/18/24 Urinary Catheter Time of Insertion: 07:20 Date Urinary Catheter Removed: 02/19/24 Time Urinary Catheter Discontinued: 06:30 Discharge Data Studies Completed and Pending Completed Studies During Hospitalization Category Date Time Status XR hip RT 2-3V wo/w pel* [id number] Routine Exams 02/18/24 09:37 Completed Pending at discharge Category Date Time Status B12 [Vitamin B12] Routine Lab 02/18/24 06:14 Received Basic Metabolic Panel AM LABS Lab 02/20/24 04:00 Ordered Basic Metabolic Panel AM LABS Lab 02/21/24 04:00 Ordered Complete Blood Count w/Auto AM LABS Lab 02/20/24 04:00 Ordered Complete Blood Count w/Auto AM LABS Lab 02/21/24 04:00 Ordered Radiology Impressions Hip/Pelvis X-Ray 02/18/24 09:37 IMPRESSION: Status post right total hip arthroplasty without evidence of immediate complication. Laboratory Results WBC 10.14 10^3/uL (3.29-11.43) 02/19/24 05:43 RBC 3.11 10^6/uL (3.85-5.65) L 02/19/24 05:43 Hgb 10.60 g/dL (11.27-16.99) L 02/19/24 05:43 Hct 32.5 % (37-53) L 02/19/24 05:43 MCV 104.5 fl (82-101) H 02/19/24 05:43 MCH 34.1 pg (27-33) H 02/19/24 05:43 MCHC 32.6 g/dL (30-55) 02/19/24 05:43 RDW 14.9 % (12.1-15.1) 02/19/24 05:43 Plt Count 171 10^3/cmm (157-399) 02/19/24 05:43 MPV 12.2 fL (7.4-10.4) H 02/19/24 05:43 Neut % (Auto) 68.8 % 02/19/24 05:43 Lymph % (Auto) 12.4 % 02/19/24 05:43 Lyon % (Auto) 18.2 % 02/19/24 05:43 Eos % (Auto) 0.0 % 02/19/24 05:43 Baso % (Auto) 0.2 % 02/19/24 05:43 Neut # (Auto) 6.97 10^3/uL (1.8-7.7) 02/19/24 05:43 Lymph # (Auto) 1.3 10^3/uL (0.8-4.8) 02/19/24 05:43 Lyon # (Auto) 1.9 10^3/uL (0.2-0.9) H 02/19/24 05:43 Eos # (Auto) 0.0 10^3/uL (0.0-0.8) 02/19/24 05:43 Baso # (Auto) 0.0 10^3/uL (0.0-0.1) 02/19/24 05:43 Nucleated RBC % (auto) 0 % 02/19/24 05:43 Nucleated RBCs # 0.0 /100WBC 02/19/24 05:43 Sodium 142 mmol/L (136-145) 02/19/24 05:43 Potassium 3.9 mmol/L (3.5-5.1) 02/19/24 05:43 Chloride 109 mmol/L (98-107) H 02/19/24 05:43 Carbon Dioxide 24 mmol/L (22-29) 02/19/24 05:43 Anion Gap 12.9 (5-19) 02/19/24 05:43 BUN 18 mg/dL (8-23) 02/19/24 05:43 Creatinine 1.1 mg/dL (0.7-1.2) 02/19/24 05:43 GFR Calculation Not Reportable 02/19/24 05:43 Glucose 123 mg/dL (65-115) H 02/19/24 05:43 Calculated Osmolality 297 mOsm/kg (285-295) H 02/19/24 05:43 Calcium 7.9 mg/dL (8.5-10.5) L 02/19/24 05:43 Blood Type O Positive 02/18/24 06:14 Rho(D) Type Rh positive 02/18/24 06:14 Antibody Screen Negative 02/18/24 06:14 Vitals Last Vital Signs Temp 98.7 F 02/19/24 07:26 Pulse 65 02/19/24 11:45 Resp 18 02/19/24 11:45 BP 113/62 02/19/24 11:45 Pulse Ox 97 02/19/24 11:45 O2 Del Method Room Air 02/19/24 11:45 Discharge Plan Discharge Patient Disposition: Home Health Service Condition: Stable Prescriptions: New Eliquis 2.5 mg tablet 2.5 mg PO BID 35 Days Qty: 70 0RF calcium carbonate-vitamin D3 [Calcium 600 + D(3)] 600 mg-10 mcg (400 unit) tablet 1 tab PO DAILY 30 Days Qty: 30 0RF Continued Ocuvite Adult 50 Plus 250-5-1 mg capsule 1 cap PO DAILY (DME) offloader brace right knee See Rx Instructions .Route .MEDSUPPLY Qty: 1 0RF Rx Instructions: As directed krill oil 500 mg capsule 500 mg PO DAILY nitroglycerin [Nitrostat] 0.4 mg tablet, sublingual 0.4 mg SUBLINGUAL Q5M PRN (Reason: chest pain) Qty: 90 3RF atorvastatin 40 mg tablet 40 mg PO DAILY Rx Instructions: TAKE 1 TABLET EVERY DAY clopidogrel 75 mg tablet 75 mg PO DAILY Rx Instructions: TAKE 1 TABLET EVERY DAY famotidine 20 mg tablet 20 mg PO BID Rx Instructions: TAKE 1 TABLET TWICE DAILY tamsulosin 0.4 mg capsule 0.4 mg PO BID Rx Instructions: TAKE 1 CAPSULE TWICE DAILY fluvoxamine 100 mg tablet 100 mg PO TID Rx Instructions: TAKE 1 TABLET THREE TIMES DAILY finasteride 5 mg tablet 5 mg PO DAILY Rx Instructions: TAKE 1 TABLET EVERY DAY fenofibrate nanocrystallized 145 mg tablet 145 mg PO DAILY Rx Instructions: TAKE 1 TABLET EVERY DAY No Action furosemide 20 mg tablet 20 mg PO DAILY PRN (Reason: edema) Qty: 30 0RF diphenhydramine-acetaminophen [Tylenol PM Extra Strength] 25-500 mg Tablet 1 tab PO Q6H PRN (Reason: Pain) ondansetron 4 mg tablet,disintegrating 4 mg PO Q8H PRN (Reason: Nausea And Vomiting) oxycodone 5 mg tablet 5 mg PO Q6H PRN (Reason: Pain) lisinopril 20 mg tablet 10 mg PO DAILY Qty: 30 0RF Rx Instructions: TAKE 1 TABLET EVERY DAY Discharge Orders: Discharge Order (Routine); Ordered 02/19/24 Ordered By: Du Correa Other Ambulatory Orders: DME: [facility] (Order) Location: None Selected Ordered By: Du Correa Referrals: Parris Ashby MD [Primary Care Provider] - (We have notified your physician's clinic of the need for a follow-up appointment to be scheduled. If you have not heard from them within the next 2 business days, please call them directly. ) Du Correa DO [Physician] - 03/04/24 1:30 pm Discharge Diet: Regular Discharge Activity: Limit activity as instructed Patient Instructions: Oxycodone, Rapid Release (By mouth), Apixaban (By mouth), Acute Wound Care (DC), Total Hip Replacement (GEN), Joint Replacement Stoplight, Opioid Safety, Post Anesthesia Care Activity Restrictions/Additional Instructions: Orthopedic discharge instructions: Adrianne Dressing--Keep dressing on and dry. After 3 days you can remove some of the dressing and shower. disconnect battery pack when showering. Adrianne dressing will stay on until follow up appt in 2 weeks. The battery pack for the dressing will at 5-7 days. Battery pack can be removed and discarded once batteries . Patient should keep dressings clean dry and intact Okay to shower over dressings if they do become wet these should be removed and new dressings applied Keep incisions clean dry and intact, leave Silverlon bandage dressings on in place for 7 days after that may rinse incisions with warm soapy water pat dry and redress with a dry dressing Weight-bear as tolerated to operative lower extremity Posterior hip precautions as instructed by physical therapy (avoid hip flexion past 90 degrees, adduction, avoid internal rotation) When sleeping or lying in bed in supine position use abduction pillow to prevent legs from crossing midline. Ice as needed for pain and swelling Take pain medication as prescribed Take antinausea medication as needed Supplement with Citracal vitamin D for bone health and healing Pain medication can cause constipation. take [id number] stool softeners and or MiraLAX. Take blood thinner as prescribed (Eliquis) Okay to continue Plavix Follow-up in the orthopedic office in 2 weeks Contact the office for any questions or concerns Discharge Attestations Time Spent in Discharge Care*: less than 30 min Quality Metrics Clinical Quality Measures [ No reported AMI, CVA or VTE this stay] Coding Level of Care Code Acute Code for Chg Fwd Diagnoses Degenerative joint disease of right hip M16.11 Essential hypertension I10 Hypertension type: essential hypertension Atherosclerosis of other coronary artery bypass graft without angina pectoris I25.810 Associated angina: without angina Coronary Disease-Associated Artery/Lesion type: bypass graft, other
--- NOTE | 2024-02-19 14:09 | PC.NURSE ---
Patient has not urinated since neville out this am. Helped patient to the restroom with no voiding. Bladder scanned patient with 29 to 60 ml urine in bladder. Patient states he does not feel he has to urinate at this time. Instructed patient to notify physician if not able to urinate.
--- NOTE | 2024-02-19 15:02 | PC.NURSE ---
Discussed new medications, continued medications and medications were sent to the [facility]. Explains the abductor pillow, and directions for shower and picco drain. Patient and spouse verbalized understanding.
[2024-02-19 15:06] VITALS: BP 113/62; PULSE 65; RESP 18; O2SAT 97
[2024-02-19 18:13] LABS: Vitamin B12 351 pg/mL (232-1245)
== END 2024-02-19 14:23 | disposition home health service (06) ==
LOC: MEDSURG 09:43
PROVIDERS: Internal Medicine; Physician Assistant; Admitting Provider Student in an Organized Health Care Education/Training Program; PCP Family Medicine; Visit Provider Student in an Organized Health Care Education/Training Program
PROC: 8E0Y0CZ Robotic Assisted Procedure of Lower Extremity, Open Approach (ICD-10-PCS; CPT 27130; principal; 2024-02-18 07:00)
DX: M16.11 Unilateral primary osteoarthritis, right hip (principal); I10 Essential (primary) hypertension; I25.810 Atherosclerosis of coronary artery bypass graft(s) without angina pectoris; Z95.1 Presence of aortocoronary bypass graft; I25.2 Old myocardial infarction; K21.9 Gastro-esophageal reflux disease without esophagitis; E78.5 Hyperlipidemia, unspecified; N40.1 Benign prostatic hyperplasia with lower urinary tract symptoms; R33.9 Retention of urine, unspecified; M19.90 Unspecified osteoarthritis, unspecified site; F32.A Depression, unspecified
CPT/HCPCS: 27130; 20985; 36415; 51702; 73502; 80048; 82607; 85025; 86850; 86900; 97116; 97161; 97165; 97530; C1713; C1776; G0378; J0131; J0690; J1100; J1171; J1885; J2371; J2405; J2704; J3010; J3370; J3490; J7120; P9045

== ENCOUNTER 2024-03-03 06:55 | Emergency (ER) | payer MEDICARE, SELFPAY ==
[2024-03-03] VITALS (8 sets, daily range): BP systolic 77–157; BP diastolic 43–92; PULSE 58–70; RESP 17; TEMP 36.7; O2SAT 95–98; BMI 31.8
--- NOTE | 2024-03-03 07:11 | XR_ITS ---
WS: [id number] Exam: XR chest 1V portable [id number] Date/Time of Exam: 03/03/2024 7:19 AM Reason For Exam: dyspnea/cough Comparison 09/10/2022. The lungs are fully expanded and clear. Cardiomediastinal silhouette is unremarkable for technique. S tatus post CABG surgery. No pleural effusion. Bony structures are intact. XR/XR chest 1V portable [id number] IMPRESSION: 1. No acute cardiopulmonary finding.
--- NOTE | 2024-03-03 07:12 | ED_ITS ---
HPI - Syncope 2 General: Chief Complaint: Syncope Stated Complaint: syncope, post op hip pain Time Seen by Provider: 03/03/24 07:11 History of Present Illness: 84-year-old male presents emergency room after syncopal episode at home. Patient had hip arthroplasty done here electively on 02 17. He was discharged home afterwards he is on Eliquis for DVT prophylaxis. He got up this morning around 4 AM with the assistance of his after standing had a syncopal episode. He fell back into his recliner and passed out due to pain in his right knee. He states he is scheduled to have surgery on his knee in a few weeks he did not have any formal physical therapy for his hip after discharge. He has been receiving home health care from his description it sounds like they gave him home exercises to do but he has not had formal physical therapy. He is uncertain if he struck his head he denies any chest or abdominal pain he does have some moderate swelling in his right leg he states all of his joints hurt. He has continued to take his medications as prescribed previously as per clopidogrel and his Eliquis. Denies any shortness of breath. Associated symptoms: Deny abdominal pain, chest pain or fever(s) Related Data Home Medications Medication Instructions Recorded Confirmed vit C,E,zinc,copper-[id number] 250 1 cap PO DAILY 04/25/21 03/03/24 mg-lutein 5 mg-zeaxanthin 1 mg capsule (Ocuvite Adult 50 Plus) krill oil 500 mg capsule 500 mg PO DAILY 02/04/24 03/03/24 atorvastatin 40 mg tablet 40 mg PO DAILY 02/18/24 03/03/24 clopidogrel 75 mg tablet 75 mg PO DAILY 02/18/24 03/03/24 famotidine 20 mg tablet 20 mg PO BID 02/18/24 03/03/24 fenofibrate nanocrystallized 145 145 mg PO DAILY 02/18/24 03/03/24 mg tablet finasteride 5 mg tablet 5 mg PO DAILY 02/18/24 03/03/24 fluvoxamine 100 mg tablet 100 mg PO TID 02/18/24 03/03/24 tamsulosin 0.4 mg capsule 0.4 mg PO BID 02/18/24 03/03/24 diphenhydramine 25 1 tab PO Q6H PRN Pain 03/03/24 03/03/24 mg-acetaminophen 500 mg tablet (Tylenol PM Extra Strength) ondansetron 4 mg disintegrating 4 mg PO Q8H PRN Nausea And Vomiting 03/03/24 03/03/24 tablet oxycodone 5 mg tablet 5 mg PO Q6H PRN Pain 03/03/24 03/03/24 Previous Rx's Medication Instructions Recorded nitroglycerin 0.4 mg sublingual 0.4 mg sublingual Q5M PRN chest 02/16/20 tablet (Nitrostat) pain #90 tabs offloader brace right knee #1 ea 02/07/23 apixaban 2.5 mg tablet (Eliquis) 2.5 mg PO BID blood clot 02/18/24 prevention 35 days #70 tabs calcium 600 mg (as 1 tab PO DAILY Bone health and 02/19/24 carbonate)-vitamin D3 10 mcg (400 healing 30 days #30 tabs unit) tablet (Calcium 600 + D(3)) furosemide 20 mg tablet 20 mg PO DAILY PRN edema #30 tabs 02/28/24 lisinopril 20 mg tablet 10 mg (1/2 x 20 mg) PO DAILY #30 03/03/24 tabs Allergies Allergy/AdvReac Type Severity Reaction Status Date / Time No Known Allergies Allergy Verified 02/18/24 05:54 Review of Systems 2 Const: Denies: fever(s) or chills Card: Reports: syncope; Denies: chest pain Resp: Denies: dyspnea GI: Denies: abdominal pain : Denies: dysuria, urinary frequency or urinary urgency Musc: Denies: neck pain or back pain Skin/Breast: Denies: rash PFSH ED 2 PFSH: Medical History Enrolled in chronic care management Incomplete bladder emptying Increased prostate specific antigen (PSA) velocity Orthostatic hypotension Macrocytosis without anemia Benign prostatic hyperplasia with urinary retention History of kidney stones Atherosclerotic heart disease Bradyarrhythmia Arthritis Depression Ventricular arrhythmia Degenerative lumbar spinal stenosis Hypertension Hyperlipidemia GERD (gastroesophageal reflux disease) Benign prostate hyperplasia Cataract right 2013 Surgical History Hx of CABG 2008 H/O shoulder surgery 2010, 2014 H/O laminectomy 2016 History of tonsillectomy Family History Mother Heart disease Chronic kidney disease (CKD) Grandmother CAD (coronary artery disease) Stroke Grandfather Lung disease Family/Other Lung disease Denies family history of Diabetes Clotting disorder Dementia Suicide Anesthesia complication Bleeding disorder Cancer Social History Smoking and tobacco/nicotine status: never used tobacco/nicotine Alcohol intake: never Substance/Drug Use: never Household members: spouse Housing: House Marital status: service: Yes Current occupational status: retired Do you think of yourself as: Straight/Heterosexual Current gender identity: Male Physical Exam 2 Const: GENERAL APPEARANCE: cooperative ORIENTATION/CONSCIOUSNESS: Yes awake HENMT: COMMON NORMALS: normocephalic, atraumatic and hearing grossly normal bilaterally HEAD & SCALP: normocephalic and atraumatic Resp: COMMON NORMALS: normal respiratory effort, No retractions, No use of accessory muscles and clear to auscultation bilaterally AUSCULTATION: clear to auscultation bilaterally Cardio: COMMON NORMALS: regular rate, regular rhythm and No murmurs present (Cardio) RATE: regular rate RHYTHM: regular rhythm GI: COMMON NORMALS: Soft to palpation and No hepatosplenomegaly present A USCULTATION: Yes normoactive bowel sounds PALPATION: Yes Soft to palpation, No Tenderness to palpation present (GI), No Guarding due to palpation present (GI) and Yes No hepatosplenomegaly present Extremity: COMMON NORMALS: normal to inspection, capillary refill normal, no clubbing, cyanosis or edema, no calf tenderness and no pedal edema Skin: COMMON NORMALS: no rashes or lesions noted GENERAL SKIN EXAM: no rashes or lesions noted Course 2 Vital Signs: Vital signs: Vital Signs Temperature 98.0 F 03/03/24 07:09 Pulse Rate 66 03/03/24 14:44 Respiratory Rate 17 03/03/24 07:09 Blood Pressure 132/70 03/03/24 14:44 Pulse Oximetry 95 03/03/24 14:44 Oxygen Delivery Me thod Room Air 03/03/24 14:44 MDM - Syncope Medical Decision Making Patient home and taking Lasix for irregular due to the postop swelling in his leg. He did not feel like it was getting much better so he kept taking it I think his episode this morning was due to orthostasis from overdiuresis. After discussion with the patient and the family we will admit him to the long-term where having case management make arrangements for the local with here in town. Encouraged him to work with physical therapy there would hold off on the Lasix additionally would cut down on his lisinopril and then have his primary care in the long-term follow-up with him. Medical Records I reviewed the patient's medical records. Lab Data I reviewed the patient's lab results. 03/03/24 07:11 03/03/24 07:45 Radiology Impressions Chest X-Ray 03/03/24 07:11 IMPRESSION: 1. No acute cardiopulmonary finding. Head CT 03/03/24 07:29 IMPRESSION: 1. No evidence of intracranial hemorrhage or mass effect. 2. Mild small vessel changes. Moderate parenchymal volume loss. 3. Intracranial vascular calcification. 4. No acute intracranial findings. Hip/Pelvis X-Ray 03/03/24 07:29 IMPRESSION: 1. Intact RIGHT total hip replacement. No complication. Knee X-Ray 03/03/24 07:29 IMPRESSION: 1. Tricompartmental DJD and chondrocalcinosis. No fracture. Laboratory Results WBC 9.79 10^3/uL (3.29-11.43) 03/03/24 07:11 RBC 2.85 10^6/uL (3.85-5.65) L 03/03/24 07:11 Hgb 9.60 g/dL (11.27-16.99) L 03/03/24 07:11 Hct 30.2 % (37-53) L 03/03/24 07:11 MCV 106.0 fl (82-101) H 03/03/24 07:11 MCH 33.7 pg (27-33) H 03/03/24 07:11 MCHC 31.8 g/dL (30-55) 03/03/24 07:11 RDW 14.5 % (12.1-15.1) 03/03/24 07:11 Plt Count 336 10^3/cmm (157-399) 03/03/24 07:11 MPV 10.5 fL (7.4-10.4) H 03/03/24 07:11 Neut % (Auto) 76.5 % 03/03/24 07:11 Lymph % (Auto) 8.4 % 03/03/24 07:11 [place] % (Auto) 13.5 % 03/03/24 07:11 Eos % (Auto) 0.7 % 03/03/24 07:11 Baso % (Auto) 0.4 % 03/03/24 07:11 Neut # (Auto) 7.49 10^3/uL (1.8-7.7) 03/03/24 07:11 Lymph # (Auto) 0.8 10^3/uL (0.8-4.8) 03/03/24 07:11 [place] # (Auto) 1.3 10^3/uL (0.2-0.9) H 03/03/24 07:11 Eos # (Auto) 0.1 10^3/uL (0.0-0.8) 03/03/24 07:11 Baso # (Auto) 0.0 10^3/uL (0.0-0.1) 03/03/24 07:11 Nucleated RBC % (auto) 0 % 03/03/24 07:11 Nucleated RBCs # 0.0 /100WBC 03/03/24 07:11 Sodium 140 mmol/L (136-145) 03/03/24 07:45 Potassium 3.8 mmol/L (3.5-5.1) 03/03/24 07:45 Chloride 108 mmol/L (98-107) H 03/03/24 07:45 Carbon Dioxide 25 mmol/L (22-29) 03/03/24 07:45 Anion Gap 10.8 (5-19) 03/03/24 07:45 BUN 17 mg/dL (8-23) 03/03/24 07:45 Creatinine 0.9 mg/dL (0.7-1.2) 03/03/24 07:45 GFR Calculation Not Reportable 03/03/24 07:45 Glucose 103 mg/dL (65-115) 03/03/24 07:45 Calculated Osmolality 292 mOsm/kg (285-295) 03/03/24 07:45 Calcium 8.3 mg/dL (8.5-10.5) L 03/03/24 07:45 Total Bilirubin 0.7 mg/dL (0.15-1.2) 03/03/24 07:45 AST 19 U/L (0-40) 03/03/24 07:45 ALT 8 U/L (0-41) 03/03/24 07:45 Alkaline Phosphatase 86 U/L (40-130) 03/03/24 07:45 Total Protein 5.1 g/dL (6.6-8.7) L 03/03/24 07:45 Albumin 2.8 g/dL (3.5-5.2) L 03/03/24 07:45 Globulin 2.3 g/dL (1.3-4.6) 03/03/24 07:45 Urine Color Yellow (Yellow) 03/03/24 09:10 Urine Appearance Cloudy (CLEAR) A 03/03/24 09:10 Urine pH 7.5 (5-7) 03/03/24 09:10 Ur Specific [place] 1.015 (1.005-1.030) 03/03/24 09:10 Urine Protein Negative (Negative) 03/03/24 09:10 Urine Glucose (UA) Negative (Normal) 03/03/24 09:10 Urine Ketones Negative (Negative) 03/03/24 09:10 Urine Blood Negative (Negative) 03/03/24 09:10 Urine Nitrate Negative (Negative) 03/03/24 09:10 Urine Bilirubin Negative (Negative) 03/03/24 09:10 Urine Urobilinogen 1.0 mg/dL (Negative) 03/03/24 09:10 Ur Leukocyte Esterase Negative (Negative) 03/03/24 09:10 Urine RBC 0-2 /hpf (0-2) 03/03/24 09:10 Urine WBC 0-5 /hpf (0-5) 03/03/24 09:10 Ur Squamous Epith Cells 0-5 /hpf (0-5) 03/03/24 09:10 Amorphous Sediment Not Reportable 03/03/24 09:10 Urine Bacteria None seen /hpf (NONE) 03/03/24 09:10 Hyaline Casts 0.40 /lpf 03/03/24 09:10 All radiology interpretation(s) finalized by discharge Discharge Plan Discharge Patient Disposition: Home Clinical Impression: Syncope due to orthostatic hypotension, S/P total right hip arthroplasty Condition: Stable Prescriptions: Changed lisinopril 20 mg tablet 10 mg PO DAILY Qty: 30 0RF Rx Instructions: TAKE 1 TABLET EVERY DAY No Action Ocuvite Adult 50 Plus 250-5-1 mg capsule 1 cap PO DAILY (DME) offloader brace right knee See Rx Instructions .Route .MEDSUPPLY Qty: 1 0RF Rx Instructions: As directed krill oil 500 mg capsule 500 mg PO DAILY nitroglycerin [Nitrostat] 0.4 mg tablet, sublingual 0.4 mg SUBLINGUAL Q5M PRN (Reason: chest pain) Qty: 90 3RF furosemide 20 mg tablet 20 mg PO DAILY PRN (Reason: edema) Qty: 30 0RF atorvastatin 40 mg tablet 40 mg PO DAILY Rx Instructions: TAKE 1 TABLET EVERY DAY clopidogrel 75 mg tablet 75 mg PO DAILY Rx Instructions: TAKE 1 TABLET EVERY DAY famotidine 20 mg tablet 20 mg PO BID Rx Instructions: TAKE 1 TABLET TWICE DAILY tamsulosin 0.4 mg capsule 0.4 mg PO BID Rx Instructions: TAKE 1 CAPSULE TWICE DAILY fluvoxamine 100 mg tablet 100 mg PO TID Rx Instructions: TAKE 1 TABLET THREE TIMES DAILY finasteride 5 mg tablet 5 mg PO DAILY Rx Instructions: TAKE 1 TABLET EVERY DAY fenofibrate nanocrystallized 145 mg tablet 145 mg PO DAILY Rx Instructions: TAKE 1 TABLET EVERY DAY Eliquis 2.5 mg tablet 2.5 mg PO BID 35 Days Qty: 70 0RF calcium carbonate-vitamin D3 [Calcium 600 + D(3)] 600 mg-10 mcg (400 unit) tablet 1 tab PO DAILY 30 Days Qty: 30 0RF diphenhydramine-acetaminophen [Tylenol PM Extra Strength] 25-500 mg Tablet 1 tab PO Q6H PRN (Reason: Pain) ondansetron 4 mg tablet,disintegrating 4 mg PO Q8H PRN (Reason: Nausea And Vomiting) oxycodone 5 mg tablet 5 mg PO Q6H PRN (Reason: Pain) Discharge Orders: Discharge ED (Routine); Ordered 03/03/24 Ordered By: Richard Martins Referrals: Parris Ashby MD [Primary Care Provider] - Discharge Diet: Usual diet Discharge Activity: Resume usual activity Patient Instructions: Opioid Safety, Pain Management Activity Restrictions/Additional Instructions: Thank you for choosing [facility] for your healthcare needs today. It is very important that you follow up as instructed or that you return to the Emergency Department should you have concerns or if your condition changes or worsens in any way. You are seen in the emergency room after syncopal episode. Your blood pressure dropped precipitously after you stood. You were given IV fluids. Recommend you decrease lisinopril to 10 mg daily and do not use Lasix at this time. 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
--- NOTE | 2024-03-03 07:29 | XR_ITS ---
WS: [email or web address] Exam: XR hip RT 2-3V wo/w pel* [id number] Date/Time of Exam: 03/03/2024 7:31 AM Reason For Exam: trauma Comparison 02/18/2024. RIGHT total hip prosthesis in place in satisfactory position. No sign of loosening or fracture. Unrem arkable soft tissues. XR/XR hip RT 2-3V wo/w pel* [id number] IMPRESSION: 1. Intact RIGHT total hip replacement. No complication.
--- NOTE | 2024-03-03 07:29 | CT_ITS ---
WS: [id number] CT HEAD TECHNIQUE: Noncontrast CT of the head obtained from the skullbase to the vertex. CLINICAL INFORMATION: fall/LOC COMPARISON: None. DLP: 1347.[address] scans at [facility] use at least one of these dose optimization techniques: automated e xposure control; mA and/or kV adjustment per patient size (includes targeted exams where dose is matc hed to clinical indication); or iterative reconstruction. FINDINGS: No evidence of intracranial hemorrhage or mass effect. Ventricular system and basal cisterns are hurtado nt. Mild small vessel changes with moderate parenchymal volume loss. No extra-axial fluid collections . No evidence of mass or mass effect. Paranasal sinuses and mastoid air cells are well aerated. .Normal visualized soft tissues. CT/CT head wo con* [id number] IMPRESSION: 1. No evidence of intracranial hemorrhage or mass effect. 2. Mild small vessel changes. Moderate parenchymal volume loss. 3. Intracranial vascular calcification. 4. No acute intracranial findings.
--- NOTE | 2024-03-03 07:29 | XR_ITS ---
WS: [email or web address] Exam: XR knee RT 3V* [id number] Date/Time of Exam: 03/03/2024 7:31 AM Reason For Exam: trauma Comparison 10/10/2022. No fracture or dislocation. Moderately advanced tricompartmental degenerative change most severe invo lving the medial compartment. No joint effusion. Spurring of the patella. Chondrocalcinosis. XR/XR knee RT 3V* [id number] IMPRESSION: 1. Tricompartmental DJD and chondrocalcinosis. No fracture.
--- NOTE | 2024-03-03 07:31 | ECG_ITS ---
[facility] Test Date: 2024-03-03 Pat Name: Carlo Dalton Department: Room: Gender: Male Welcome Desk Agent: : 1940 Requested By: Richard Taylor Order Number: [id number] Josiah MD: Yoana Degroot M.D. Measurements Intervals [place] Rate: 55 P: 26 IN: 98 QRS: -35 QRSD: 97 T: 18 QT: 429 QTc: 412 Interpretive Statements SINUS BRADYCARDIA WITH SHORT IN INTERVAL WITH OCCASIONAL SUPRAVENTRICULAR PREMATURE COMPLEXES LEFT AXIS DEVIATION [QRS AXIS < -30] Compared to ECG 02/04/2024 11:39:35 Short IN interval now present Incomplete right bundle-branch block no longer present Electronically Signed On 03-03-2024 19:35:44 DRY DRUG WORKER by Yoana Degroot M.D. [email or web address]
[2024-03-03 08:09] LABS: Alanine Aminotransferase 8 U/L (0-41); Albumin Level 2.8 g/dL (3.5-5.2); Alkaline Phosphatase 86 U/L (40-130); Anion Gap 10.8 (5-19); Aspartate Amino Transferase 19 U/L (0-40); Blood Urea Nitrogen 17 mg/dL (8-23); Calcium 8.3 mg/dL (8.5-10.5); Carbon Dioxide 25 mmol/L (22-29); Chloride 108 mmol/L (98-107); Creatinine Clr Calc Pharmacy 79.8374; Globulin 2.3 g/dL (1.3-4.6); Glucose 103 mg/dL (65-115); Osmolality Calculated 292 mOsm/kg (285-295); Potassium 3.8 mmol/L (3.5-5.1); Sodium 140 mmol/L (136-145); Total Bilirubin 0.7 mg/dL (0.15-1.2); Total Protein 5.1 g/dL (6.6-8.7)
[2024-03-03 08:12] LABS: Basophils % 0.4 %; Eosinophils # 0.1 10^3/uL (0.0-0.8); Eosinophils % 0.7 %; Hematocrit 30.2 % (37-53); Lymphocytes # 0.8 10^3/uL (0.8-4.8); Lymphocytes % 8.4 %; Mean Corpuscular HGB Conc 31.8 g/dL (30-55); Mean Corpuscular Hemoglobin 33.7 pg (27-33); Mean Platelet Volume 10.5 fL (7.4-10.4); Monocytes # 1.3 10^3/uL (0.2-0.9); Monocytes % 13.5 %; Neutrophils # 7.49 10^3/uL (1.8-7.7); Neutrophils % 76.5 %; Nucleated Red Blood Cells % 0 %; Platelet Count 336 10^3/cmm (157-399); Red Blood Count 2.85 10^6/uL (3.85-5.65); Red Cell Distribution Width 14.5 % (12.1-15.1); White Blood Count 9.79 10^3/uL (3.29-11.43)
[2024-03-03 09:23] LABS: Bilirubin Urine Negative (Negative); Blood Urine Negative (Negative); Glucose Urine UA Negative (Normal); Ketones Urine Negative (Negative); Leukocyte Esterase Urine Negative (Negative); Nitrate Urine Negative (Negative); Protein Urine Negative (Negative); Specific Gravity, Urine 1.015 (1.005-1.030); Urine Appearance Cloudy (CLEAR); Urine Color Yellow (Yellow); pH Urine 7.5 (5-7)
[2024-03-03 09:26] LABS: Add Urine Microscopic? YES; Bacteria Urine None Seen /hpf; RBC Urine 0-2 /hpf (0-2); Squamous Epithelial Cell Urine 0-5 /hpf (0-5); WBC Urine 0-5 /hpf (0-5)
[2024-03-03] MEDS: sodium chloride 0.9% 1,000 ML 999 ML IV (10:50)
--- NOTE | 2024-03-03 10:56 | PC.SOCIAL ---
SNF Placement Spoke with patient and his ; they would like referral sent to [facility]. Explained PA process; and the likelihood of needing to return home and wait on auth or private paying until auth is approved/denied. They would like to private pay as voices caregiver fatigue. [id number] completed; access code: [email or web address]. Referral faxed at this time. Notified Yvette of referral.
== END 2024-03-03 17:05 | disposition home or self-care (01) ==
PROVIDERS: Emergency Provider Family Medicine; PCP Family Medicine
DX: R55 Syncope and collapse (principal); Z96.641 Presence of right artificial hip joint; Z79.02 Long term (current) use of antithrombotics/antiplatelets; Z79.01 Long term (current) use of anticoagulants; I10 Essential (primary) hypertension; E78.5 Hyperlipidemia, unspecified
CPT/HCPCS: 36415; 70450; 71045; 73502; 73562; 80053; 81001; 85025; 93005; 99285; J7030

== ENCOUNTER → 2024-03-04 13:25 | Outpatient (BNVA) | payer MEDICARE, SELFPAY | PROVIDERS: PCP Family Medicine; Visit Provider Physician Assistant | DX: Z98.890 Other specified postprocedural states (principal); Z96.641 Presence of right artificial hip joint | CPT/HCPCS: 73502; 99024 ==

== ENCOUNTER → 2024-03-27 09:58 | Outpatient (BNVA) | payer MEDICARE, SELFPAY | PROVIDERS: PCP Family Medicine; Visit Provider Family Medicine | DX: E78.2 Mixed hyperlipidemia (principal); I10 Essential (primary) hypertension; D64.9 Anemia, unspecified; M25.512 Pain in left shoulder | CPT/HCPCS: 73030; 80053; 80061; 85025 ==

== ENCOUNTER → 2024-04-07 10:05 | Outpatient (BNVA) | payer MEDICARE, SELFPAY | PROVIDERS: PCP Family Medicine; Visit Provider Internal Medicine Cardiovascular Disease | DX: I25.810 Atherosclerosis of coronary artery bypass graft(s) without angina pectoris (principal); I10 Essential (primary) hypertension; E78.2 Mixed hyperlipidemia; I49.8 Other specified cardiac arrhythmias | CPT/HCPCS: 99214 ==

== ENCOUNTER → 2024-04-17 13:02 | Outpatient (BNVA) | payer MEDICARE, SELFPAY | PROVIDERS: PCP Family Medicine; Visit Provider Physician Assistant | DX: M25.551 Pain in right hip (principal); Z96.641 Presence of right artificial hip joint | CPT/HCPCS: 73502; 99024 ==

== ENCOUNTER → 2024-05-20 14:31 | Outpatient (BNVA) | payer MEDICARE, SELFPAY | PROVIDERS: PCP Family Medicine; Visit Provider Student in an Organized Health Care Education/Training Program | DX: M25.512 Pain in left shoulder (principal); M19.012 Primary osteoarthritis, left shoulder | CPT/HCPCS: 73030; 99214 ==

== ENCOUNTER 2024-07-24 15:04 | Observation (INO) | payer MEDICARE, SELFPAY ==
[2024-07-24] VITALS (13 sets, daily range): BP systolic 124–160; BP diastolic 53–75; PULSE 43–54; RESP 14–18; TEMP 36.7–36.8; O2SAT 93–98; BMI 29.0; BMI 29.8
--- NOTE | 2024-07-24 15:10 | ECG_ITS ---
[facility] Date: 2024-07-24 Pat Name: Carlo Dlaton Department: Room: Gender: Male Healthcare Administration Intern: : 1940 Requested By: Hilario Wilhelm Order Number: [id number] Rahman MD: Yoana Degroot M.D. Measurements Intervals [place] Rate: 43 P: 50 AK: 168 QRS: -17 QRSD: 109 T: -7 QT: 439 QTc: 374 Interpretive Statements SINUS BRADYCARDIA POSSIBLE ANTERIOR MYOCARDIAL INFARCTION , OF INDETERMINATE AGE [30 ms Q WAVE IN V3/V4, OR R < 0.2 mV IN V4] Compared to ECG 03/03/2024 07:31:14 Myocardial infarct finding now present Short AK interval no longer present Left-axis deviation no longer present Electronically Signed On 07-26-2024 13:27:24 CDT by Yoana Degroot M.D. [email or web address]
[2024-07-24 16:34] LABS: Basophils % 0.7 %; Eosinophils # 0.1 10^3/uL (0.0-0.8); Eosinophils % 2.3 %; Hematocrit 34.9 % (37-53); Lymphocytes # 1.9 10^3/uL (0.8-4.8); Lymphocytes % 33.6 %; Mean Corpuscular HGB Conc 33.5 g/dL (30-55); Mean Corpuscular Hemoglobin 33.7 pg (27-33); Mean Corpuscular Volume 100.6 fl (82-101); Mean Platelet Volume 11.9 fL (7.4-10.4); Monocytes # 0.7 10^3/uL (0.2-0.9); Monocytes % 12.3 %; Neutrophils # 2.89 10^3/uL (1.8-7.7); Neutrophils % 50.9 %; Nucleated Red Blood Cells % 0 %; Platelet Count 167 10^3/cmm (157-399); Red Blood Count 3.47 10^6/uL (3.85-5.65); Red Cell Distribution Width 16.9 % (12.1-15.1); White Blood Count 5.68 10^3/uL (3.29-11.43)
[2024-07-24 16:45] LABS: INR 1.11 (0.8-1.2); Partial Thromboplastin Time 30.9 SECONDS (23.9-36.7)
--- NOTE | 2024-07-24 16:51 | ECG_ITS ---
[facility] Date: 2024-07-24 Pat Name: Carlo Dalton Department: Room: Gender: Male Power Mule Operator: : 1940 Requested By: Hilario Wilhelm Order Number: [id number] Rahman MD: Yoana Degroot M.D. Measurements Intervals [place] Rate: 47 P: 109 WA: 169 QRS: -42 QRSD: 108 T: 29 QT: 457 QTc: 407 Interpretive Statements SINUS BRADYCARDIA WITH SINUS ARRHYTHMIA LEFT AXIS DEVIATION [QRS AXIS < -30] PATTERN CONSISTENT WITH PULMONARY DISEASE Compared to ECG 03/03/2024 07:31:14 Short [place] interval no longer present Electronically Signed On 07-26-2024 13:26:15 CDT by Yoana Degroot M.D. [email or web address]
[2024-07-24 16:59] LABS: Troponin(5th) Baseline 26 ng/L (0-15)
[2024-07-24 17:11] LABS: Alanine Aminotransferase 13 U/L (0-41); Albumin Level 3.3 g/dL (3.5-5.2); Alkaline Phosphatase 76 U/L (40-130); Anion Gap 13.1 (5-19); Aspartate Amino Transferase 24 U/L (0-40); Blood Urea Nitrogen 22 mg/dL (8-23); Calcium 8.7 mg/dL (8.5-10.5); Carbon Dioxide 22 mmol/L (22-29); Chloride 111 mmol/L (98-107); Creatinine Clr Calc Pharmacy 88.4661; Globulin 2.1 g/dL (1.3-4.6); Glucose 85 mg/dL (65-115); Magnesium 2.1 mg/dL (1.7-2.3); Osmolality Calculated 297 mOsm/kg (285-295); Potassium 4.1 mmol/L (3.5-5.1); Sodium 142 mmol/L (136-145); Thyroid Stimulating Hormone 2.92 uIU/mL (0.27-4.20); Total Bilirubin 0.5 mg/dL (0.15-1.2); Total Protein 5.4 g/dL (6.6-8.7)
--- NOTE | 2024-07-24 17:24 | W.ED.ARRPALP ---
HPI - Arrhythmia/Palpitations General: Chief Complaint: Arrhythmia/Palpitations Stated Complaint: low hr Time Seen by Provider: 07/24/24 15:14 Source: patient and family Mode of arrival: ambulatory Limitations: no limitations History of Present Illness: Comes in for episodes of dizziness going on the day, lightheaded. Feeling that way when he goes stand up. Tried using his exercise bike to see if that improve things that did not. Patient took his vitals a few times he is been having some bradycardia into the 40s and high 30s. Blood pressures remained stable. Related Data Home Medications ?Medication ?Instructions ?Recorded ?Confirmed krill oil 500 mg capsule 500 mg PO QPM 02/04/24 07/24/24 atorvastatin 40 mg tablet 40 mg PO QPM 02/18/24 07/24/24 clopidogrel 75 mg tablet 75 mg PO QAM 02/18/24 07/24/24 fenofibrate nanocrystallized 145 145 mg PO QAM 02/18/24 07/24/24 mg tablet finasteride 5 mg tablet 5 mg PO QAM 02/18/24 07/24/24 fluvoxamine 100 mg tablet 100 mg PO TID 02/18/24 07/24/24 tamsulosin 0.4 mg capsule 0.4 mg PO BID 02/18/24 07/24/24 diphenhydramine 25 1 tab PO Q6H PRN Pain 03/03/24 07/24/24 mg-acetaminophen 500 mg tablet (Tylenol PM Extra Strength) lisinopril 20 mg tablet 20 mg PO DAILY 07/24/24 07/24/24 [id number]-[id number] 250 mg-dha 90 1 cap PO QAM 07/24/24 07/24/24 mg-epa 160 qx-ecld-lbkt-zeax capsule (Ocuvite Adult 50 Plus) Previous Rx's ?Medication ?Instructions ?Recorded nitroglycerin 0.4 mg sublingual 0.4 mg sublingual Q5M PRN chest 02/16/20 tablet (Nitrostat) pain #90 tabs furosemide 20 mg tablet 20 mg PO DAILY PRN edema #30 tabs 02/28/24 Allergies Allergy/AdvReac Type Severity Reaction Status Date / Time No Known Allergies Allergy Verified 07/02/24 10:54 Review of Systems General: Reports: 10 or more systems reviewed and unremarkable except in HPI and below PFSH ED PFSH: Medical History Enrolled in chronic care management Incomplete bladder emptying Increased prostate specific antigen (PSA) velocity Orthostatic hypotension Macrocytosis without anemia Benign prostatic hyperplasia with urinary retention History of kidney stones Atherosclerotic heart disease Bradyarrhythmia Arthritis Depression Ventricular arrhythmia Degenerative lumbar spinal stenosis Hypertension Hyperlipidemia GERD (gastroesophageal reflux disease) Benign prostate hyperplasia Cataract right 2013 Surgical History History of hemorrhoidectomy History of total right hip arthroplasty Hx of CABG 2008 H/O shoulder surgery 2010, 2013 H/O laminectomy 2016 History of tonsillectomy Family History Mother Heart disease Chronic kidney disease (CKD) Grandmother CAD (coronary artery disease) Stroke Grandfather Lung disease Family/Other Lung disease Denies family history of Diabetes Clotting disorder Dementia Suicide Anesthesia complication Bleeding disorder Cancer Social History Smoking and tobacco/nicotine status: never used tobacco/nicotine Alcohol intake: never Substance/Drug Use: never Household members: spouse Housing: House Marital status: Number of children: 0 Current occupational status: retired 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 Do you think of yourself as: Straight/Heterosexual Current gender identity: Male Physical Exam Const: COMMON NORMALS: no acute distress, average body habitus, patient oriented x3, healthy appearing, alert and well nourished GENERAL APPEARANCE: well kempt and well developed HENMT: COMMON NORMALS: normocephalic, atraumatic, external ears normal and moist oral mucous membranes HEAD & SCALP: normocephalic and atraumatic EXTERNAL EAR: Yes external ears normal Eye: COMMON NORMALS: Equal, round and reactive pupils present, EOMs intact bilaterally and conjunctivae normal CONJUNCTIVA: Yes conjunctivae normal PUPIL: Yes Equal, round and reactive pupils present Neck/C-Spine: COMMON NORMALS: full ROM, no lymphadenopathy and supple Chest: CHEST: Yes Symmetrical chest wall rise and No Surgical scars present (Chest) Resp: COMMON NORMALS: normal respiratory effort, No retractions, No use of accessory muscles and clear to auscultation bilaterally AUSCULTATION: clear to auscultation bilaterally Cardio: COMMON NORMALS: regular rhythm (with occasional skipped beats), S1 normal heart sound present, S2 normal heart sound present, No gallops present (Cardio), No clicks present (Cardio), No murmurs present (Cardio) and No rub (Cardio) RATE: bradycardic RHYTHM: regular rhythm (with occasional skipped beats) HEART SOUNDS: S1 normal heart sound present, S2 normal heart sound present and no murmurs PERIPHERAL PULSES: other (Radial pulses 2+ and symmetric) GI: COMMON NORMALS: Soft to palpation, non-tender and no masses INSPECTION: No abdominal distension PALPATION: Yes Soft to palpation, No Guarding due to palpation present (GI) and No Rebound tenderness present : COMMON NORMALS: Yes no CVA tenderness BLADDER/KIDNEY EXAM: Yes no CVA tenderness Back/Pelvis: COMMON NORMALS: no CVA tenderness Extremity: COMMON NORMALS: normal to inspection, full ROM, capillary refill normal and no clubbing, cyanosis or edema Neuro: COMMON NORMALS: patient oriented x3 SENSORIUM/ORIENTATION: Yes alert Psych: APPEARANCE: Yes well kempt Skin: COMMON NORMALS: no rashes or lesions noted, no wounds, turgor normal and no jaundice GENERAL SKIN EXAM: no rashes or lesions noted and turgor normal Course Reevaluation(s): Reevaluation #1: Patient stable, updated on current status. After speaking with desulfurizer operator and patient's need for admission. Patient and are in agreement. Time: 20:02 Vital Signs: Vital signs: Vital Signs Temperature 98.1 F 07/24/24 15:07 Pulse Rate 45 L 07/24/24 17:00 Respiratory Rate 14 07/24/24 17:00 Blood Pressure 127/64 07/24/24 17:00 Pulse Oximetry 93 07/24/24 17:00 Oxygen Delivery Me thod Room Air 07/24/24 17:00 MDM - Arrhythmia/Palpitations Medical Decision Making Patient having bradycardia and expressing symptomatic from it especially with exertion. It appears his heart rate does not increase and he becomes very fatigued or lightheaded. No absolute syncope at this point. Patient had a history of bradycardia arrhythmias and is not on any rate interfering medications. Lowest recorded heart rate previous to this today was 56. Today's been consistently in the 40s and occasionally the upper 30s. Spoke with Dr. Moody who recommends admission Medical Records I reviewed the patient's medical records. Lab Data I reviewed the patient's lab results. 07/24/24 16:21 07/24/24 16:21 Laboratory Results WBC 5.68 10^3/uL (3.29-11.43) 07/24/24 16:21 RBC 3.47 10^6/uL (3.85-5.65) L 07/24/24 16:21 Hgb 11.70 g/dL (11.27-16.99) 07/24/24 16:21 Hct 34.9 % (37-53) L 07/24/24 16:21 MCV 100.6 fl (82-101) 07/24/24 16:21 MCH 33.7 pg (27-33) H 07/24/24 16:21 MCHC 33.5 g/dL (30-55) 07/24/24 16:21 RDW 16.9 % (12.1-15.1) H 07/24/24 16:21 Plt Count 167 10^3/cmm (157-399) 07/24/24 16:21 MPV 11.9 fL (7.4-10.4) H 07/24/24 16:21 Neut % (Auto) 50.9 % 07/24/24 16:21 Lymph % (Auto) 33.6 % 07/24/24 16:21 [place] % (Auto) 12.3 % 07/24/24 16:21 Eos % (Auto) 2.3 % 07/24/24 16:21 Baso % (Auto) 0.7 % 07/24/24 16: Neut # (Auto) 2.89 10^3/uL (1.8-7.7) 07/24/24 16:21 Lymph # (Auto) 1.9 10^3/uL (0.8-4.8) 07/24/24 16:21 [place] # (Auto) 0.7 10^3/uL (0.2-0.9) 07/24/24 16:21 Eos # (Auto) 0.1 10^3/uL (0.0-0.8) 07/24/24 16:21 Baso # (Auto) 0.0 10^3/uL (0.0-0.1) 07/24/24 16:21 Nucleated RBC % (auto) 0 % 07/24/24 16:21 Nucleated RBCs # 0.0 /100WBC 07/24/24 16:21 PT 15.10 SECONDS (12.1-14.9) H 07/24/24 16:21 INR 1.11 (0.8-1.2) 07/24/24 16:21 APTT 30.9 SECONDS (23.9-36.7) 07/24/24 16:21 Sodium 142 mmol/L (136-145) 07/24/24 16:21 Potassium 4.1 mmol/L (3.5-5.1) 07/24/24 16:21 Chloride 111 mmol/L (98-107) H 07/24/24 16:21 Carbon Dioxide 22 mmol/L (22-29) 07/24/24 16:21 Anion Gap 13.1 (5-19) 07/24/24 16:21 BUN 22 mg/dL (8-23) 07/24/24 16:21 Creatinine 0.7 mg/dL (0.7-1.2) 07/24/24 16:21 GFR Calculation Not Reportable 07/24/24 16:21 Glucose 85 mg/dL (65-115) 07/24/24 16:21 Calculated Osmolality 297 mOsm/kg (285-295) H 07/24/24 16:21 Calcium 8.7 mg/dL (8.5-10.5) 07/24/24 16:21 Magnesium 2.1 mg/dL (1.7-2.3) 07/24/24 16:21 Total Bilirubin 0.5 mg/dL (0.15-1.2) 07/24/24 16:21 AST 24 U/L (0-40) 07/24/24 16:21 ALT 13 U/L (0-41) 07/24/24 16:21 Alkaline Phosphatase 76 U/L (40-130) 07/24/24 16:21 Troponin T Baseline 26 ng/L (0-15) H 07/24/24 16:21 Total Protein 5.4 g/dL (6.6-8.7) L 07/24/24 16:21 Albumin 3.3 g/dL (3.5-5.2) L 07/24/24 16:21 Globulin 2.1 g/dL (1.3-4.6) 07/24/24 16:21 TSH 2.92 uIU/mL (0.27-4.20) 07/24/24 16:21 All radiology interpretation(s) finalized by discharge ED provider radiology interpretation(s): cxr normal. EKG Data EKG 1: I personally reviewed and interpreted this EKG as follows: EKG interpretation date: 07/24/24 EKG interpretation time: 15:12 Prior EKG tracings: not available for review Interpretation: Sinus bradycardia, normal axis, QTc 386, [place] 168. No ST elevations or depressions EKG 2: I personally reviewed and interpreted this EKG as follows: EKG interpretation date: 07/24/24 EKG interpretation time: 16:54 Prior EKG tracings: available for review (from 1510) Interpretation: Sinus bradycardia mild left axis deviation more pronounced than previous likely sticker placement. QTc 420, [place] 169. No ST elevations or depressions. Discharge Plan Discharge Patient Disposition: Placed in Observation Clinical Impression: Symptomatic bradycardia Condition: Stable Prescriptions: No Action krill oil 500 mg capsule 500 mg PO QPM nitroglycerin [Nitrostat] 0.4 mg tablet, sublingual 0.4 mg SUBLINGUAL Q5M PRN (Reason: chest pain) Qty: 90 3RF furosemide 20 mg tablet 20 mg PO DAILY PRN (Reason: edema) Qty: 30 0RF atorvastatin 40 mg tablet 40 mg PO QPM clopidogrel 75 mg tablet 75 mg PO QAM tamsulosin 0.4 mg capsule 0.4 mg PO BID fluvoxamine 100 mg tablet 100 mg PO TID finasteride 5 mg tablet 5 mg PO QAM fenofibrate nanocrystallized 145 mg tablet 145 mg PO QAM Ocuvite Adult 50 Plus 250 mg (90 mg-160 mg) Capsule 1 cap PO QAM lisinopril 20 mg tablet 20 mg PO DAILY diphenhydramine-acetaminophen [Tylenol PM Extra Strength] 25-500 mg Tablet 1 tab PO Q6H PRN (Reason: Pain) Referrals: Parris Ashby MD [Primary Care Provider] - Discharge Diet: Advance as tolerated Discharge Activity: Resume usual activity Print Language: Albanian Coding Level of Care Code ED Manager Of Selection And Assessment for Chg Blaine
[2024-07-24 19:22] LABS: Troponin 5 2HR 23.29 ng/L (0-15)
[2024-07-24 19:25] LABS: Troponin 5 2HR Delta -2.71 ABS# (0-10)
[2024-07-24 20:20] LABS: Free T4 Free Thyroxine 0.95 ng/dL (0.82-1.77)
--- NOTE | 2024-07-24 20:54 | PC.NURSE ---
pt report called to [facility] Med Surg.
--- NOTE | 2024-07-24 21:34 | PM.HP ---
Providers/Chief Complaint Admitting Physician: Vicente Pelayo MD Primary Care Provider: Parris Ashby MD Chief Complaint: low hr History of Present Illness Carlo Dalton is a 84 year old male with history of CABG 2008, takes Plavix, needing knee surgery for severe arthritis in near future for which he will need preop clearance, presented today with dizziness. Patient is stating that he was in usual state of health until today around noon when he started experiencing dizziness and somnolence. He is describing the symptoms as unusual for him, he has not noticed any chest pain, fever, nausea, vomiting diarrhea or shortness of breath. Patient is stating that he got up to go to [employer] other when because he was getting ready to mow the lawn and he was very excited about it. But he could not do so. His symptoms started around noon and lasted until 2 PM. took his blood pressure it was 119/60 m mercury and heart rate was 43. They called PCP who recommended them to go to the ER for further evaluation. Workup in the ER is unremarkable TSH normal, EKG showing sinus bradycardia, case discussed with cardiology who recommended overnight monitoring At the time of my evaluation patient is hemodynamically stable, sinus bradycardia, heart rate fluctuate between 48-52, patient is resting well, is at the bedside Patient takes tamsulosin, as per the patient was not osteoporotic she took blood pressure multiple times at home every time they would take blood pressure heart rate would be in the low 40s. Patient is not endorsing confusion, shortness of breath, low blood pressure, syncopal events or chest pain. Review of record reveals a Dr. Degroot is aware of bradycardia but patient never had any significant indication for pacemaker patient never had any significant symptoms with bradycardia. Patient is not on any AV estefania blocking agents. Review of Systems Eyes: Denies: change in vision ENMT: Denies: throat pain Card: Denies: chest pain Resp: Denies: dyspnea GI: Denies: abdominal pain : Denies: flank pain Musc: Denies: neck pain Skin/Breast: Denies: rash Neuro: Reports: dizziness Medications/Allergies Home Medications ?Medication ?Instructions ?Recorded ?Confirmed ?Last Taken ?Type nitroglycerin 0.4 mg sublingual 0.4 mg sublingual Q5M PRN chest 02/16/20 07/24/24 Unknown Rx tablet (Nitrostat) pain #90 tabs krill oil 500 mg capsule 500 mg PO QPM 02/04/24 07/24/24 07/23/24 History atorvastatin 40 mg tablet 40 mg PO QPM 02/18/24 07/24/24 07/23/24 History clopidogrel 75 mg tablet 75 mg PO QAM 02/18/24 07/24/24 07/24/24 History fenofibrate nanocrystallized 145 145 mg PO QAM 02/18/24 07/24/24 07/24/24 History mg tablet finasteride 5 mg tablet 5 mg PO QAM 02/18/24 07/24/24 07/24/24 History fluvoxamine 100 mg tablet 100 mg PO TID 02/18/24 07/24/24 07/24/24 History tamsulosin 0.4 mg capsule 0.4 mg PO BID 02/18/24 07/24/24 07/24/24 History furosemide 20 mg tablet 20 mg PO DAILY PRN edema #30 tabs 02/28/24 07/24/24 03/02/24 Rx diphenhydramine 25 1 tab PO Q6H PRN Pain 03/03/24 07/24/24 03/02/24 23:00 History mg-acetaminophen 500 mg tablet (Tylenol PM Extra Strength) lisinopril 20 mg tablet 20 mg PO DAILY 07/24/24 07/24/24 07/24/24 History bsajehdh-kcq-ohhfw9 250 mg-dha 90 1 cap PO QAM 07/24/24 07/24/24 07/24/24 History mg-epa 160 dg-bcln-ifzn-zeax capsule (Ocuvite Adult 50 Plus) Allergies Allergy/AdvReac Type Severity Reaction Status Date / Time No Known Allergies Allergy Verified 07/02/24 10:54 PFSH Acute PFSH: Medical History Enrolled in chronic care management Incomplete bladder emptying Increased prostate specific antigen (PSA) velocity Orthostatic hypotension Macrocytosis without anemia Benign prostatic hyperplasia with urinary retention History of kidney stones Atherosclerotic heart disease Bradyarrhythmia Arthritis Depression Ventricular arrhythmia Degenerative lumbar spinal stenosis Hypertension Hyperlipidemia GERD (gastroesophageal reflux disease) Benign prostate hyperplasia Cataract right 2013 Surgical History History of hemorrhoidectomy History of total right hip arthroplasty Hx of CABG 2008 H/O shoulder surgery 2010, 2013 H/O laminectomy 2016 History of tonsillectomy Family History Mother Heart disease Chronic kidney disease (CKD) Grandmother CAD (coronary artery disease) Stroke Grandfather Lung disease Family/Other Lung disease Denies family history of Diabetes Clotting disorder Dementia Suicide Anesthesia complication Bleeding disorder Cancer Social History Smoking and tobacco/nicotine status: never used tobacco/nicotine Alcohol intake: never Substance/Drug Use: never Household members: spouse Housing: House Marital status: Number of children: 0 Current occupational status: retired 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 Do you think of yourself as: Straight/Heterosexual Current gender identity: Male Vitals/I&O/Wt Last Vital Signs Temp 98.1 F 07/24/24 15:07 Pulse 44 L 07/24/24 21:01 Resp 17 07/24/24 20:30 BP 136/64 07/24/24 21:01 Pulse Ox 97 07/24/24 21:01 O2 Del Method Room Air 07/24/24 21:03 Weight last 48 hrs Weight 102.512 kg Weight 99.79 kg Physical Exam Narrative: Patient is euvolemic GCS 15 Nonfocal neuroexam S1, S2 Currently on room air No active focal deficit Pleasant and cooperative at the bedside Lower extremity no significant edema No active distress Appears stated age Heart rate is rhythm on telemetry heart rate fluctuating between 44-48 Blood pressure 150/64 mmHg Patient not endorsing any chest pain, no active confusion noted, no shortness of breath Data 07/24/24 16:21 07/24/24 16:21 A&P Assessment and plan (1) Bradyarrhythmia: (2) Symptomatic bradycardia: (3) Hypertension: Qualifiers: Hypertension type: essential hypertension Qualified Code(s): I10 - Essential (primary) hypertension (4) Arthritis: Plan Symptomatic bradycardia Heart rate fluctuating between 44-48, EKG showing sinus bradycardia TSH normal Troponin trending down No active chest pain History of established coronary disease, CABG 2008, will request echo, Patient is stating that he is scheduled for knee surgery evaluation next month, he will need preoperative clearance as well, I did tell him that at this point he might not get preoperative clearance right away because chances are he will most likely get 2 to 3 weeks of event monitor before getting clearance Patient is not on any AV estefania blocking agent No history of lupus or amyloidosis Can use atropine on as-needed basis for symptomatic bradycardia if needed Cardiology has been consulted, Hypertension: Continue lisinopril Established coronary disease CABG 2009: Continue Plavix and atorvastatin BPH: Continue tamsulosin Cardiac diet DVT prophylaxis: Lovenox Full code goals of care discussed with the patient in front of his PDMP PDMP Reviewed: Not Reviewed Attestations Medical Necessity Statement*: Anticipate discharge within 24 to 48 hours Diagnoses Bradyarrhythmia I49.8 Symptomatic bradycardia R00.1 Essential hypertension I10 Hypertension type: essential hypertension Arthritis M19.90
[2024-07-24] MEDS: enoxaparin 40 mg/0.4 mL Syringe SUBCUT (22:23)
--- NOTE | 2024-07-24 23:57 | ECG_ITS ---
[facility] Test Date: 2024-07-24 Pat Name: Carlo Dalton Department: Room: 250 Gender: Male Public Address Technician: : 1940 Requested By: Hilario Wilhelm Order Number: [id number] Rahman MD: Yoana Degroot M.D. Measurements Intervals [place] Rate: 43 P: 35 MI: 169 QRS: -40 QRSD: 99 T: 31 QT: 442 QTc: 377 Interpretive Statements SINUS BRADYCARDIA PATTERN CONSISTENT WITH PULMONARY DISEASE INFERIOR MYOCARDIAL INFARCTION , OF INDETERMINATE AGE [40+ ms Q WAVE AND/OR ST/T ABNORMALITY IN II/aVF] Compared to ECG 07/24/2024 16:51:49 Myocardial infarct finding now present Sinus arrhythmia no longer present Left-axis deviation no longer present Electronically Signed On 07-26-2024 13:25:51 CDT by Yoana Degroot M.D. [email or web address]
[2024-07-25] VITALS (11 sets, daily range): BP systolic 119–151; BP diastolic 61–76; PULSE 43–60; RESP 15–18; TEMP 36.6–37.1; O2SAT 93–98; BMI 31.5
[2024-07-25 05:01] LABS: Basophils # 0.1 10^3/uL (0.0-0.1); Basophils % 0.9 %; Eosinophils # 0.3 10^3/uL (0.0-0.8); Hematocrit 35.6 % (37-53); Lymphocytes # 2.8 10^3/uL (0.8-4.8); Lymphocytes % 41.4 %; Mean Corpuscular HGB Conc 32.9 g/dL (30-55); Mean Corpuscular Hemoglobin 33.3 pg (27-33); Mean Corpuscular Volume 101.4 fl (82-101); Monocytes # 0.8 10^3/uL (0.2-0.9); Monocytes % 11.9 %; Neutrophils # 2.81 10^3/uL (1.8-7.7); Neutrophils % 41.7 %; Nucleated Red Blood Cells % 0 %; Platelet Count 164 10^3/cmm (157-399); Red Blood Count 3.51 10^6/uL (3.85-5.65); Red Cell Distribution Width 16.6 % (12.1-15.1); White Blood Count 6.74 10^3/uL (3.29-11.43)
[2024-07-25 05:14] LABS: Anion Gap 10.6 (5-19); Blood Urea Nitrogen 19 mg/dL (8-23); Calcium 8.7 mg/dL (8.5-10.5); Carbon Dioxide 24 mmol/L (22-29); Chloride 113 mmol/L (98-107); Creatinine Clr Calc Pharmacy 89.5625; Glucose 80 mg/dL (65-115); Osmolality Calculated 299 mOsm/kg (285-295); Potassium 3.6 mmol/L (3.5-5.1); Sodium 144 mmol/L (136-145)
[2024-07-25] MEDS: clopidogrel 75 mg Tablet PO (05:29)
[2024-07-25] MEDS: tamsulosin 0.4 mg Capsule PO ×2 (08:35→17:26)
[2024-07-25] MEDS: lisinopril 20 mg Tablet PO (08:35)
--- NOTE | 2024-07-25 09:36 | PM.CONSULT ---
Providers/Reason For Consult Consulting Physician/Specialty*: LORENZA Degroot MD/cardiology Reason for Consult*: Patient with bradycardia Requesting Physician: Dr. Bui Attending Physician: Ashley Bui MD Primary Care Provider: Parris Ashby MD History of Present Illness History of Present Illness Carlo Dalton is a 84 year old male with a history of atherosclerotic heart diseas, is admitted to the hospital to the emergency room where he presented with complaints of dizziness/blurry vision. He was found to have a heart rate in the 40s and 50s. Cardiology consult is requested for further cardiac evaluation recommendations. This patient is known to have bradycardia for many years. His heart rate usually in the low 50s and upper 40s. Yesterday he was resting in his recliner for a while. Then he got up to go outside to do some lawn moving. As he was getting ready to go out, he started feeling fuzzy in his head. His vision was blurred. He was unable to focus/felt sleepy headed. This very lasted for several minutes. His checked his heart rate which was in the 40s. Blood pressure was in the normal range. He subsequently got on his stationary bike to do some exercise to see if that will improve his symptoms. He was able to do the exercise as usual with no difficulty. But he still has some fuzzy feeling in his head. The called her friend who is a nurse who advised her to bring him to the hospital emergency room. Patient did not have any syncopal episode. He did not have any chest pain or chest tightness. No headache. No nausea or vomiting. No fever or chills. No cough or any unusual shortness of breath. Since hospital admission, he is doing okay with no recurrence of the symptoms. Throughout the night, his heart rate was in the 40s and 50s. Apparently he did not have any symptoms similar to what he had yesterday. He is also able to exercise on the telemetry with no specific complaints. Review of Systems Narrative: CONSTITUTIONAL: No fever or chills. EYES: No blurring of vision or other visual disturbances lately. ENT: No hoarseness of voice, auditory disturbances or sore throat. CARDIOVASCULAR: As mentioned above. RESPIRATORY: No significant cough. GASTROINTESTINAL: No hematemesis or melena. GENITOURINARY: No dysuria or hematuria. INTEGUMENTARY: No skin rashes or history of skin cancer. NEURO: As mentioned above PSYCHIATRIC: No history of psychosis or major depression. HEMATOLOGIC: No bleeding disorders or significant anemia. ENDOCRINE: No history of polyuria or polydipsia. MUSCULOSKELETAL: No recent joint pain or swelling. ALLERGY/IMMUNOLOGY: As mentioned above. Medications/Allergies Home Medications ?Medication ?Instructions ?Recorded ?Confirmed ?Last Taken ?Type nitroglycerin 0.4 mg sublingual 0.4 mg sublingual Q5M PRN chest 02/16/20 07/24/24 Unknown Rx tablet (Nitrostat) pain #90 tabs krill oil 500 mg capsule 500 mg PO QPM 02/04/24 07/24/24 07/23/24 History atorvastatin 40 mg tablet 40 mg PO QPM 02/18/24 07/24/24 07/23/24 History clopidogrel 75 mg tablet 75 mg PO QAM 02/18/24 07/24/24 07/24/24 History fenofibrate nanocrystallized 145 145 mg PO QAM 02/18/24 07/24/24 07/24/24 History mg tablet finasteride 5 mg tablet 5 mg PO QAM 02/18/24 07/24/24 07/24/24 History fluvoxamine 100 mg tablet 100 mg PO TID 02/18/24 07/24/24 07/24/24 History tamsulosin 0.4 mg capsule 0.4 mg PO BID 02/18/24 07/24/24 07/24/24 History furosemide 20 mg tablet 20 mg PO DAILY PRN edema #30 tabs 02/28/24 07/24/24 03/02/24 Rx diphenhydramine 25 1 tab PO Q6H PRN Pain 03/03/24 07/24/24 03/02/24 23:00 History mg-acetaminophen 500 mg tablet (Tylenol PM Extra Strength) lisinopril 20 mg tablet 20 mg PO DAILY 07/24/24 07/24/24 07/24/24 History [id number] 250 mg-dha 90 1 cap PO QAM 07/24/24 07/24/24 07/24/24 History mg-epa 160 [id number]-[id number] capsule (Ocuvite Adult 50 Plus) Allergies Allergy/AdvReac Type Severity Reaction Status Date / Time No Known Allergies Allergy Verified 07/02/24 10:54 Current Medications Generic Name Dose Route Start Last Admin Trade Name Freq PRN Reason Stop Dose Admin Clopidogrel Bisulfate 75 mg 07/25/24 06:00 07/25/24 05:29 Clopidogrel 75 Mg Tablet PO 75 mg QAM LANA Administration Enoxaparin Sodium 40 mg 07/24/24 21:45 07/24/24 22:23 Enoxaparin 40 Mg/0.4 Ml Syringe SUBCUT 40 mg Q24H LANA Administration Lisinopril 20 mg 07/25/24 09:00 07/25/24 08:35 Lisinopril 20 Mg Tablet PO 20 mg DAILY LANA Administration Tamsulosin HCl 0.4 mg 07/25/24 09:00 07/25/24 08:35 Tamsulosin 0.4 Mg Capsule PO 0.4 mg BID LANA Administration PFSH Acute PFSH: Medical History Enrolled in chronic care management Incomplete bladder emptying Increased prostate specific antigen (PSA) velocity Orthostatic hypotension Macrocytosis without anemia Benign prostatic hyperplasia with urinary retention History of kidney stones Atherosclerotic heart disease Bradyarrhythmia Arthritis Depression Ventricular arrhythmia Degenerative lumbar spinal stenosis Hypertension Hyperlipidemia GERD (gastroesophageal reflux disease) Benign prostate hyperplasia Cataract right 2013 Surgical History History of hemorrhoidectomy History of total right hip arthroplasty Hx of CABG 2008 H/O shoulder surgery 2010, 2013 H/O laminectomy 2016 History of tonsillectomy Family History Mother Heart disease Chronic kidney disease (CKD) Grandmother CAD (coronary artery disease) Stroke Grandfather Lung disease Family/Other Lung disease Denies family history of Diabetes Clotting disorder Dementia Suicide Anesthesia complication Bleeding disorder Cancer Social History Smoking and tobacco/nicotine status: never used tobacco/nicotine Alcohol intake: never Substance/Drug Use: never Household members: spouse Housing: House Marital status: Number of children: 0 Current occupational status: retired 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 Not in any acute distress. HEENT: No significant pallor, icterus or lymphadenopathy.Oral cavity: There are no mucous membrane lesions. NECK: Trachea appears to be central. No masses noted. No JVD or thyromegaly appreciated. RESPIRATORY: Chest is symmetrical. No intercostals muscle retraction or any accessory muscle activation. There is no chest wall tenderness. Breath sounds are heard bilaterally. No rales or rhonchi heard. No evidence of any consolidation. BREASTS: Deferred. HEART: The heart sounds are normal. No S3 or S4. Short systolic murmur at the left lower sternal border. No pericardial rub ABDOMEN: No vessel pulsations or distention. No tenderness. No organomegaly appreciated. Bowel sounds are normally heard. : Deferred. RECTAL: Deferred. LYMPHATIC: No lymphadenopathy noted in the neck. EXTREMITIES: No edema or cyanosis. No clubbing. MUSCULOSKELETAL: No acute joint deformities or swelling SKIN: There are no significant rashes or ecchymosis NEUROPSYCHIATRIC: The patient is alert and oriented x3. Appears to be in a good mood. No tremors or rigidity noted. No focal motor deficits Data 07/26/24 02:43 07/26/24 02:43 Other Labs: Laboratory Last Values WBC 6.74 10^3/uL (3.29-11.43) 07/25/24 04:18 RBC 3.51 10^6/uL (3.85-5.65) L 07/25/24 04:18 Hgb 11.70 g/dL (11.27-16.99) 07/25/24 04:18 Hct 35.6 % (37-53) L 07/25/24 04:18 MCV 101.4 fl (82-101) H 07/25/24 04:18 MCH 33.3 pg (27-33) H 07/25/24 04:18 MCHC 32.9 g/dL (30-55) 07/25/24 04:18 RDW 16.6 % (12.1-15.1) H 07/25/24 04:18 Plt Count 164 10^3/cmm (157-399) 07/25/24 04:18 MPV 12.0 fL (7.4-10.4) H 07/25/24 04:18 Neut % (Auto) 41.7 % 07/25/24 04:18 Lymph % (Auto) 41.4 % 07/25/24 04:18 Tompkins % (Auto) 11.9 % 07/25/24 04:18 Eos % (Auto) 4.0 % 07/25/24 04:18 Baso % (Auto) 0.9 % 07/25/24 04:18 Neut # (Auto) 2.81 10^3/uL (1.8-7.7) 07/25/24 04:18 Lymph # (Auto) 2.8 10^3/uL (0.8-4.8) 07/25/24 04:18 Tompkins # (Auto) 0.8 10^3/uL (0.2-0.9) 07/25/24 04:18 Eos # (Auto) 0.3 10^3/uL (0.0-0.8) 07/25/24 04:18 Baso # (Auto) 0.1 10^3/uL (0.0-0.1) 07/25/24 04:18 Nucleated RBC % (auto) 0 % 07/25/24 04:18 Nucleated RBCs # 0.0 /100WBC 07/25/24 04:18 PT 15.10 SECONDS (12.1-14.9) H 07/24/24 16:21 INR 1.11 (0.8-1.2) 07/24/24 16:21 APTT 30.9 SECONDS (23.9-36.7) 07/24/24 16:21 Sodium 144 mmol/L (136-145) 07/25/24 04:18 Potassium 3.6 mmol/L (3.5-5.1) 07/25/24 04:18 Chloride 113 mmol/L (98-107) H 07/25/24 04:18 Carbon Dioxide 24 mmol/L (22-29) 07/25/24 04:18 Anion Gap 10.6 (5-19) 07/25/24 04:18 BUN 19 mg/dL (8-23) 07/25/24 04:18 Creatinine 0.8 mg/dL (0.7-1.2) 07/25/24 04:18 GFR Calculation Not Reportable 07/25/24 04:18 Glucose 80 mg/dL (65-115) 07/25/24 04:18 Calculated Osmolality 299 mOsm/kg (285-295) H 07/25/24 04:18 Calcium 8.7 mg/dL (8.5-10.5) 07/25/24 04:18 Magnesium 2.0 mg/dL (1.7-2.3) 07/25/24 04:18 Total Bilirubin 0.5 mg/dL (0.15-1.2) 07/24/24 16:21 AST 24 U/L (0-40) 07/24/24 16:21 ALT 13 U/L (0-41) 07/24/24 16:21 Alkaline Phosphatase 76 U/L (40-130) 07/24/24 16:21 Troponin T Baseline 26 ng/L (0-15) H 07/24/24 16:21 Troponin T 120 Minute 23.29 ng/L (0-15) H 07/24/24 18:20 Delta Troponin T -2.71 ABS# (0-10) L 07/24/24 18:20 Total Protein 5.4 g/dL (6.6-8.7) L 07/24/24 16:21 Albumin 3.3 g/dL (3.5-5.2) L 07/24/24 16:21 Globulin 2.1 g/dL (1.3-4.6) 07/24/24 16:21 TSH 2.92 uIU/mL (0.27-4.20) 07/24/24 16:21 Free T4 0.95 ng/dL (0.82-1.77) 07/24/24 16:21 A&P Assessment and plan (1) Bradyarrhythmia: This patient is known to have a longstanding history of bradycardia arrhythmia. Currently has not had any symptoms so far. The current episode relative is related to the bradycardia or not he is not clear at this time. Patient seems to be doing okay since hospital admission given that the heart rate is still in the 40s and 50s at rest. Possibility of a TIA causing blurring of vision is a consideration. I may go ahead and do a carotid Doppler examination to further evaluate. A CT of the head also may be appropriate. (2) TIA (transient ischemic attack): Possibility of TIA causing the above-mentioned symptoms is a consideration. I will be reviewing the echocardiogram and carotid duplex examination. Also may consider doing a CT of the head. (3) Atherosclerotic heart disease: Patient does not have any chest pain or any specific ischemic symptoms at this point. The most recent Myocardial perfusion imaging was in 2019. It was unremarkable at that time. He had open heart surgery in 2008 Qualifiers: Associated angina: without angina Coronary Disease-Associated Artery/Lesion type: bypass graft, other Qualified Code(s): I25.810 - Atherosclerosis of coronary artery bypass graft(s) without angina pectoris (4) Hyperlipidemia: May continue on the current medications. Qualifiers: Hyperlipidemia type: mixed hyperlipidemia Qualified Code(s): E78.2 - Mixed hyperlipidemia (5) Hypertension: Currently normotensive. May continue the current medications. Qualifiers: Hypertension type: essential hypertension Qualified Code(s): I10 - Essential (primary) hypertension (6) Ventricular arrhythmia: No significant ventricular arrhythmias on the monitor so far. Plan Based on the results of the above, further recommendations will be made. Patient may be kept on the current medications for the time being. Sometime down the line the, the patient may require permanent pacer implantation. However there is no strong indication at this point. Thank you for the opportunity to evaluate this patient and make these recommendations PDMP PDMP Reviewed: Not Reviewed Coding Level of Care Code 62747 Diagnoses Bradyarrhythmia I49.8 TIA (transient ischemic attack) G45.9 Atherosclerosis of other coronary artery bypass graft without angina pectoris I25.810 Associated angina: without angina Coronary Disease-Associated Artery/Lesion type: bypass graft, other Mixed hyperlipidemia E78.2 Hyperlipidemia type: mixed hyperlipidemia Essential hypertension I10 Hypertension type: essential hypertension Ventricular arrhythmia I49.9
--- NOTE | 2024-07-25 10:48 | USCV_ITS ---
Carlo Dalton Age: 84 Gender: M : 1940 Exam Date: 07/25/2024 15:00 Ordering Phys: Yoana Degroot MD ([email or web address]) Technologist: AHSAN Exam Location: [facility] – [place] Indication: TIA Risk Factors: Previous Vascular Surgery: Right Brachial BP: / Left Brachial BP: / Right Left Velocity (cm/s) Spectral Plaque Velocity (cm/s) Spectral Plaque Syst/Diast Broadening Syst/Diast Broadening 78.90/ 12.80 Prox CCA 68.10 / 11.20 76.30/ 11.50 Mid CCA 88.40 / 16.80 76.30/ 14.10 Distal CCA 80.40 / 13.40 50.50/ 9.60 Prox ICA 68.10 / 14.80 53.70/ 12.80 Mid ICA 80.20 / 13.60 72.00/ 13.90 Distal ICA 54.70 / 14.40 66.00 ECA 45.60 0.70 ICA/CCA 0.80 Antegrade Vertebral Antegrade 32.90/ 9.30 cm/s 52.20/ 13.00 cm/s Tri Subclavian Tri 73.80 129.7 0 CONCLUSIONS Right ICA stenosis <50%. Moderate atheromatous plaque right carotid bulb/ICA. Left ICA stenosis <50%. Moderate atheromatous plaque left carotid bulb/ICA. Normal antegrade Doppler flow noted in the right vertebral artery. Normal antegrade Doppler flow noted in the left vertebral artery. Mick Kraus MD (Electronically Signed) Final Date: 25 July 2024 16:17 S
--- NOTE | 2024-07-25 11:14 | P.PN_ITS ---
Subjective 2 Subjective: seen this morning no acute events overnight able to ambulate without dizziness, walked to bathroom earlier sitting up in chair at bedside heart rate 40's Vitals/I&O/Wt Last Vital Signs Temp 98.6 F 07/25/24 07:46 Pulse 43 L 07/25/24 07:46 Resp 16 07/25/24 07:46 BP 134/71 07/25/24 07:46 Pulse Ox 97 07/25/24 07:46 O2 Del Method Room Air 07/25/24 07:46 07/24/24 07/25/24 07/25/24 22:59 06:59 14:59 Intake Total 400 / 400 356 / 356 Balance 400 / 400 356 / 356 Weight last 48 hrs Weight 102.512 kg Weight 102.512 kg Weight 99.79 kg Physical Exam 2 Narrative: Patient is euvolemic GCS 15 Nonfocal neuroexam S1, S2 Currently on room air No active focal deficit Pleasant and cooperative at the bedside Lower extremity no significant edema No active distress Appears stated age Blood pressure 150/64 mmHg Patient not endorsing any chest pain, no active confusion noted, no shortness of breath Data 07/25/24 04:18 07/25/24 04:18 A&P Assessment and plan (1) Bradyarrhythmia: (2) Symptomatic bradycardia: (3) Hypertension: Qualifiers: Hypertension type: essential hypertension Qualified Code(s): I10 - Essential (primary) hypertension (4) Arthritis: Plan Symptomatic bradycardia Heart rate fluctuating between 44-48, EKG showing sinus bradycardia TSH normal Troponin trending down No active chest pain History of established coronary disease, CABG 2008, will request echo, Patient is stating that he is scheduled for knee surgery evaluation next month, he will need preoperative clearance as well, I did tell him that at this point he might not get preoperative clearance right away because chances are he will most likely get 2 to 3 weeks of event monitor before getting clearance Patient is not on any AV estefania blocking agent No history of lupus or amyloidosis Can use atropine on as-needed basis for symptomatic bradycardia if needed Cardiology has been consulted, Hypertension: Continue lisinopril Established coronary disease CABG 2008: Continue Plavix and atorvastatin BPH: Continue tamsulosin Cardiac diet DVT prophylaxis: Lovenox Full code goals of care discussed with the patient in front of his 07/25/2024 dizziness no longer present HR in 40's check carotid dopplers await echocardiogram await recommendations from cardiology continue to monitor on telemetry PDMP PDMP Reviewed: Not Reviewed Attestations 2 Medical Necessity Statement*: continue to monitor on telemetry Diagnoses Bradyarrhythmia I49.8 Symptomatic bradycardia R00.1 Essential hypertension I10 Hypertension type: essential hypertension Arthritis M19.90
--- NOTE | 2024-07-25 12:27 | MRR_ITS ---
PROCEDURE INFORMATION: Exam: MR Head Without Contrast Exam date and time: 07/25/2024 4:17 PM Age: 84 years old Clinical indication: Dizziness; Additional info: R/O post circ stroke. Dizziness. Bradycardia TECHNIQUE: Imaging protocol: Magnetic resonance imaging of the head without contrast. COMPARISON: CT head wo con* [id number] 03/03/2024 8:18 AM FINDINGS: Brain: No acute infarct. No hemorrhage. No edema. Moderate diffuse cerebral atrophy. Mild scattered FLAIR T2 hyperintense foci within the deep white matter tracts consistent with chronic small vessel ischemic disease. Cerebral ventricles: Normal. No ventriculomegaly. Bones: Unremarkable. Paranasal sinuses: Normal as visualized. No acute sinusitis. Mastoid air cells: Normal as visualized. No mastoid effusion. Orbital cavities: Unremarkable. Soft tissues: Unremarkable. MR/MR head wo con* [id number] IMPRESSION: No acute findings.
[2024-07-25] MEDS: atorvastatin 40 mg Tablet PO (17:26)
[2024-07-25] MEDS: enoxaparin 40 mg/0.4 mL Syringe SUBCUT (20:59)
--- NOTE | 2024-07-25 21:39 | USCV_ITS ---
Carlo Dalton Age: 84 Gender: M : 1940 Exam Date: 07/25/2024 07:18 Ordering Phys: Vicente Pelayo MD Technologist: AHSAN [place]am [place] [facility] [place] Indication: Bradycardia BP: 157 / 68 HR: 43 Rhythm: Sinus Technical Quality: Adequate MEASUREMENTS (Male / Female) Normal Values 2D ECHO LV Diastolic Diameter PLAX 5.3 cm 4.2 - 5.9 / 3.9 - 5.3 cm IVS Diastolic Thickness 1.2 cm 0.6 - 1.0 / 0.6 - 0.9 cm IVS Systolic Thickness 1.8 cm LVPW Diastolic Thickness 1.3 cm 0.6 - 1.0 / 0.6 - 0.9 cm LVPW Systolic Thickness 1.7 cm LVOT Diameter 1.9 cm LV Ejection Fraction 2D Teich 51.9 % LV Ejection Fraction MOD 4C 58.0 % LV Ejection Fraction MOD 2C 66.3 % LV Ejection Fraction 2C AL 66.8 % LA Diameter 4.9 cm RA Systolic Volume 4C AL 67.6 ml RA Systolic Volume 4C MOD 66.5 ml LA Sys Volume AL 96.7 cm cubed LA Sys Volume Index AL 42.2 cm cubed/m squared Aorta at Sinotubular Diameter 3.0 cm M-MODE LA Ao Ratio MM 1.3 AV Cusp Separation MM 1.9 cm DOPPLER AV Peak Velocity 145.0 cm/s LVOT Peak Velocity 93.0 cm/s AV Area Cont Eq vti 1.9 cm squared AV Area Cont Eq pk 1.9 cm squared MV Peak Velocity 105.0 cm/s MV Area PHT 6.9 cm squared Mitral E to A Ratio 1.2 TR Peak Velocity 95.0 cm/s TR Peak Gradient 3.6 mmHg TV Peak E Velocity 59.0 cm/s PV Peak Velocity 91.0 cm/s FINDINGS Left Ventricle Normal LV size ejection fraction of 58%. Mild hypokinesia of the basal septum. Mild calcific left-ventricular hypertrophy.Grade I/IV diastolic dysfunction (abnormal relaxation filling pattern), normal to mildly elevated filling pressures. Right Ventricle Normal right ventricular size and systolic function. Right Atrium Normal right atrial size. Left Atrium Mildly increased left atrial size. Mitral Valve Thickened mitral valve. Mild mitral valve regurgitation. Aortic Valve Thickened aortic valve. Moderate aortic valve calcification. Tricuspid Valve No gross abnormalities noted Pulmonic Valve Pulmonic valve not well visualized. Pericardium No pericardial effusion. Aorta Normal aortic annulus size. IVC Inferior vena cava not visualized. CONCLUSIONS Normal LV size ejection fraction of 58%. Mild hypokinesia of the basal septum. Mild calcific left-ventricular hypertrophy.Grade I/IV diastolic dysfunction (abnormal relaxation filling pattern), normal to mildly elevated filling pressures. Mildly increased left atrial size. Thickened mitral valve. Mild mitral valve regurgitation. Thickened aortic valve. Moderate aortic valve calcification. There is no pericardial effusion. There are no intracardiac masses. Compared to the study from 09/11/2022, there may not be a significant change in the 2D findings. Dr Yoana Degroot MD FACC (Electronically Signed) Final Date: 25 July 2024 10:08 S
[2024-07-26 03:59] LABS: Basophils # 0.1 10^3/uL (0.0-0.1); Basophils % 0.8 %; Eosinophils # 0.3 10^3/uL (0.0-0.8); Eosinophils % 4.8 %; Lymphocytes # 2.4 10^3/uL (0.8-4.8); Lymphocytes % 39.7 %; Mean Corpuscular HGB Conc 33.5 g/dL (30-55); Mean Corpuscular Hemoglobin 33.3 pg (27-33); Mean Corpuscular Volume 99.4 fl (82-101); Mean Platelet Volume 12.2 fL (7.4-10.4); Monocytes # 0.8 10^3/uL (0.2-0.9); Monocytes % 12.7 %; Neutrophils # 2.53 10^3/uL (1.8-7.7); Neutrophils % 41.7 %; Nucleated Red Blood Cells % 0 %; Platelet Count 166 10^3/cmm (157-399); Red Blood Count 3.42 10^6/uL (3.85-5.65); Red Cell Distribution Width 16.6 % (12.1-15.1); White Blood Count 6.07 10^3/uL (3.29-11.43)
[2024-07-26 04:00] VITALS: BP 141/62; PULSE 48; RESP 17; O2SAT 94
[2024-07-26 04:12] LABS: Anion Gap 9.7 (5-19); Blood Urea Nitrogen 17 mg/dL (8-23); Calcium 8.6 mg/dL (8.5-10.5); Carbon Dioxide 25 mmol/L (22-29); Chloride 112 mmol/L (98-107); Creatinine Clr Calc Pharmacy 86.7833; Glucose 89 mg/dL (65-115); Magnesium 1.9 mg/dL (1.7-2.3); Osmolality Calculated 297 mOsm/kg (285-295); Potassium 3.7 mmol/L (3.5-5.1); Sodium 143 mmol/L (136-145)
[2024-07-26 06:00] VITALS: PULSE 49
[2024-07-26 07:42] VITALS: BP 155/68; PULSE 50; RESP 16; TEMP 36.8; O2SAT 97
[2024-07-26] MEDS: tamsulosin 0.4 mg Capsule PO (08:08)
[2024-07-26] MEDS: clopidogrel 75 mg Tablet PO (08:08)
[2024-07-26] MEDS: lisinopril 20 mg Tablet PO (08:08)
--- NOTE | 2024-07-26 08:50 | P.PN_ITS ---
Subjective 2 Subjective: Patient had MRI of the head and was found to have no evidence of any CVA. He is feeling okay even with a heart rate of 40s and 50s on telemetry. With ambulation, the heart rate goes into the 70s and 80s. According to the patient and his , he is back to his baseline. Medications: Medication Review Details: Current Medications Acetaminophen (Acetaminophen 500 Mg Tablet) 500 mg PO Q4H PRN PRN Reason: fever Albuterol/Ipratropium (Ipratropium-Albuterol 3 Ml Neb) 3 ml INHALATION Q6H PRN PRN Reason: SHORTNESS OF BREATH Atorvastatin Calcium (Atorvastatin 40 Mg Tablet) 40 mg PO QPM [facility] Last Admin: 07/25/24 17:26 Dose: 40 mg Atropine Sulfate (Atropine 0.1 Mg/Ml Syr 10 Ml) 1 mg IVP Q12H PRN PRN Reason: symptomatic bardycardia only Clopidogrel Bisulfate (Clopidogrel 75 Mg Tablet) 75 mg PO DAILY [facility] Last Admin: 07/26/24 08:08 Dose: 75 mg Enoxaparin Sodium (Enoxaparin 40 Mg/0.4 Ml Syringe) 40 mg SUBCUT Q24H [facility] Last Admin: 07/25/24 20:59 Dose: 40 mg Lisinopril (Lisinopril 20 Mg Tablet) 20 mg PO DAILY [facility] Last Admin: 07/26/24 08:08 Dose: 20 mg Ondansetron HCl (Ondansetron 2 Mg/Ml Sdv 2 Ml) 4 mg IVP Q6H PRN PRN Reason: NAUSEA AND VOMITING Tamsulosin HCl (Tamsulosin 0.4 Mg Capsule) 0.4 mg PO BID [facility] Last Admin: 07/26/24 08:08 Dose: 0.4 mg Vitals/I&O/Wt Last Vital Signs Temp 98.3 F 07/26/24 07:42 Pulse 50 L 07/26/24 07:42 Resp 16 07/26/24 07:42 BP 155/68 07/26/24 07:42 Pulse Ox 97 07/26/24 07:42 O2 Del Method Room Air 07/26/24 07:42 07/25/24 07/26/24 07/26/24 22:59 06:59 14:59 Intake Total 240 / 714 240 / 240 Balance 240 / 714 240 / 240 Weight last 48 hrs Weight 230 lb 6.4 oz Weight 226 lb Weight 226 lb Weight 220 lb Physical Exam 2 Narrative: GENERAL: The patient is alert and oriented times three. Not in any acute distress. HEENT: No significant pallor, icterus or lymphadenopathy.Oral cavity: There are no mucous membrane lesions. NECK: Trachea appears to be central. No masses noted. No JVD or thyromegaly appreciated. RESPIRATORY: Chest is symmetrical. No intercostals muscle retraction or any accessory muscle activation. There is no chest wall tenderness. Breath sounds are heard bilaterally. No rales or rhonchi heard. No evidence of any consolidation. BREASTS: Deferred. HEART: The heart sounds are normal. No S3 or S4. Short systolic murmur at the left lower sternal border. No pericardial rub ABDOMEN: No vessel pulsations or distention. No tenderness. No organomegaly appreciated. Bowel sounds are normally heard. : Deferred. RECTAL: Deferred. LYMPHATIC: No lymphadenopathy noted in the neck. EXTREMITIES: No edema or cyanosis. No clubbing. MUSCULOSKELETAL: No acute joint deformities or swelling SKIN: There are no significant rashes or ecchymosis NEUROPSYCHIATRIC: The patient is alert and oriented x3. Appears to be in a good mood. No tremors or rigidity noted. No focal motor deficits Data 07/26/24 02:43 07/26/24 02:43 Other Labs: Laboratory Last Values WBC 6.07 10^3/uL (3.29-11.43) 07/26/24 02:43 RBC 3.42 10^6/uL (3.85-5.65) L 07/26/24 02:43 Hgb 11.40 g/dL (11.27-16.99) 07/26/24 02:43 Hct 34.0 % (37-53) L 07/26/24 02:43 MCV 99.4 fl (82-101) 07/26/24 02:43 MCH 33.3 pg (27-33) H 07/26/24 02:43 MCHC 33.5 g/dL (30-55) 07/26/24 02:43 RDW 16.6 % (12.1-15.1) H 07/26/24 02:43 Plt Count 166 10^3/cmm (157-399) 07/26/24 02:43 MPV 12.2 fL (7.4-10.4) H 07/26/24 02:43 Neut % (Auto) 41.7 % 07/26/24 02:43 Lymph % (Auto) 39.7 % 07/26/24 02:43 [place] % (Auto) 12.7 % 07/26/24 02:43 Eos % (Auto) 4.8 % 07/26/24 02:43 Baso % (Auto) 0.8 % 07/26/24 02:43 Neut # (Auto) 2.53 10^3/uL (1.8-7.7) 07/26/24 02:43 Lymph # (Auto) 2.4 10^3/uL (0.8-4.8) 07/26/24 02:43 [place] # (Auto) 0.8 10^3/uL (0.2-0.9) 07/26/24 02:43 Eos # (Auto) 0.3 10^3/uL (0.0-0.8) 07/26/24 02:43 Baso # (Auto) 0.1 10^3/uL (0.0-0.1) 07/26/24 02:43 Nucleated RBC % (auto) 0 % 07/26/24 02:43 Nucleated RBCs # 0.0 /100WBC 07/26/24 02:43 PT 15.10 SECONDS (12.1-14.9) H 07/24/24 16:21 INR 1.11 (0.8-1.2) 07/24/24 16:21 APTT 30.9 SECONDS (23.9-36.7) 07/24/24 16:21 Sodium 143 mmol/L (136-145) 07/26/24 02:43 Potassium 3.7 mmol/L (3.5-5.1) 07/26/24 02:43 Chloride 112 mmol/L (98-107) H 07/26/24 02:43 Carbon Dioxide 25 mmol/L (22-29) 07/26/24 02:43 Anion Gap 9.7 (5-19) 07/26/24 02:43 BUN 17 mg/dL (8-23) 07/26/24 02:43 Creatinine 0.7 mg/dL (0.7-1.2) 07/26/24 02:43 GFR Calculation Not Reportable 07/26/24 02:43 Glucose 89 mg/dL (65-115) 07/26/24 02:43 Calculated Osmolality 297 mOsm/kg (285-295) H 07/26/24 02:43 Calcium 8.6 mg/dL (8.5-10.5) 07/26/24 02:43 Magnesium 1.9 mg/dL (1.7-2.3) 07/26/24 02:43 Total Bilirubin 0.5 mg/dL (0.15-1.2) 07/24/24 16:21 AST 24 U/L (0-40) 07/24/24 16:21 ALT 13 U/L (0-41) 07/24/24 16:21 Alkaline Phosphatase 76 U/L (40-130) 07/24/24 16:21 Troponin T Baseline 26 ng/L (0-15) H 07/24/24 16:21 Troponin T 120 Minute 23.29 ng/L (0-15) H 07/24/24 18:20 Delta Troponin T -2.71 ABS# (0-10) L 07/24/24 18:20 Total Protein 5.4 g/dL (6.6-8.7) L 07/24/24 16:21 Albumin 3.3 g/dL (3.5-5.2) L 07/24/24 16:21 Globulin 2.1 g/dL (1.3-4.6) 07/24/24 16:21 TSH 2.92 uIU/mL (0.27-4.20) 07/24/24 16:21 Free T4 0.95 ng/dL (0.82-1.77) 07/24/24 16:21 Other data: Carotid Doppler examination from yesterday Right ICA stenosis <50%. Moderate atheromatous plaque right carotid bulb/ICA. Left ICA stenosis <50%. Moderate atheromatous plaque left carotid bulb/ICA. Normal antegrade Doppler flow noted in the right vertebral artery. Normal antegrade Doppler flow noted in the left vertebral artery. MRI of the head from yesterday revealed no acute findings A&P Assessment and plan (1) Bradyarrhythmia: Seems to be asymptomatic. (2) TIA (transient ischemic attack): MRI of the head showed no acute findings (3) Atherosclerotic heart disease: Patient does not have any chest pain or any specific ischemic symptoms at this point. The most recent Myocardial perfusion imaging was in 2019. It was unremarkable at that time. He had open heart surgery in 2008 Qualifiers: Coronary Disease-Associated Artery/Lesion type: bypass graft, other A ssociated angina: without angina Qualified Code(s): I25.810 - Atherosclerosis of coronary artery bypass graft(s) without angina pectoris (4) Hyperlipidemia: May continue on the current medications. Qualifiers: Hyperlipidemia type: mixed hyperlipidemia Qualified Code(s): E78.2 - Mixed hyperlipidemia (5) Hypertension: Currently normotensive. May continue the current medications. Qualifiers: Hypertension type: essential hypertension Qualified Code(s): I10 - Essential (primary) hypertension (6) Ventricular arrhythmia: No significant ventricular arrhythmias on the monitor so far. Plan If the patient continues to remain stable, may be discharged home today. Event monitor as an outpatient, scheduled for the I will see him in the office in 6 weeks May continue on the current medications for the time being Discussed with Dr. Bui PDMP PDMP Reviewed: Not Reviewed Attestations 2 Medical Necessity Statement*: Possible discharge home today Coding Level of Care Code 08540 Diagnoses Bradyarrhythmia I49.8 TIA (transient ischemic attack) G45.9 Atherosclerosis of other coronary artery bypass graft without angina pectoris I25.810 Coronary Disease-Associated Artery/Lesion type: bypass graft, other Associated angina: without angina Mixed hyperlipidemia E78.2 Hyperlipidemia type: mixed hyperlipidemia Essential hypertension I10 Hypertension type: essential hypertension Ventricular arrhythmia I49.9
[2024-07-26 11:30] VITALS: BP 93/57; PULSE 70; RESP 14; TEMP 36.4; O2SAT 95
--- NOTE | 2024-07-26 11:36 | P.DS_ITS ---
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 Heart rate fluctuates between 44-48. EKG showed sinus bradycardia. Troponins trending down. Patient was seen by cardiology. MRI was also obtained which ruled out stroke. Patient's dizziness improved during hospitalization. Patient was discharged home with event monitor to follow-up with cardiology as an outpatient. Asymptomatic during hospital stay. Physical Exam Narrative: Patient is euvolemic GCS 15 Nonfocal neuroexam S1, S2 Currently on room air No active focal deficit Pleasant and cooperative at the bedside Lower extremity no significant edema No active distress Appears stated age Patient not endorsing any chest pain, no active confusion noted, no shortness of breath Discharge Data Studies Completed and Pending Completed Studies During Hospitalization Category Date Time Status MR head wo con* [id number] Urgent MRI 07/25/24 12:27 Completed CV carotid duplex BI* [id number] Routine Ultrasound 07/25/24 10:48 Completed CV. echo complete* [id number] Routine Ultrasound 07/25/24 21:39 Completed Radiology Impressions Head MRI 07/25/24 12:27 IMPRESSION: No acute findings. Laboratory Results WBC 6.07 10^3/uL (3.29-11.43) 07/26/24 02:43 RBC 3.42 10^6/uL (3.85-5.65) L 07/26/24 02:43 Hgb 11.40 g/dL (11.27-16.99) 07/26/24 02:43 Hct 34.0 % (37-53) L 07/26/24 02:43 MCV 99.4 fl (82-101) 07/26/24 02:43 MCH 33.3 pg (27-33) H 07/26/24 02:43 MCHC 33.5 g/dL (30-55) 07/26/24 02:43 RDW 16.6 % (12.1-15.1) H 07/26/24 02:43 Plt Count 166 10^3/cmm (157-399) 07/26/24 02:43 MPV 12.2 fL (7.4-10.4) H 07/26/24 02:43 Neut % (Auto) 41.7 % 07/26/24 02:43 Lymph % (Auto) 39.7 % 07/26/24 02:43 [place] % (Auto) 12.7 % 07/26/24 02:43 Eos % (Auto) 4.8 % 07/26/24 02:43 Baso % (Auto) 0.8 % 07/26/24 02:43 Neut # (Auto) 2.53 10^3/uL (1.8-7.7) 07/26/24 02:43 Lymph # (Auto) 2.4 10^3/uL (0.8-4.8) 07/26/24 02:43 [place] # (Auto) 0.8 10^3/uL (0.2-0.9) 07/26/24 02:43 Eos # (Auto) 0.3 10^3/uL (0.0-0.8) 07/26/24 02:43 Baso # (Auto) 0.1 10^3/uL (0.0-0.1) 07/26/24 02:43 Nucleated RBC % (auto) 0 % 07/26/24 02:43 Nucleated RBCs # 0.0 /100WBC 07/26/24 02:43 PT 15.10 SECONDS (12.1-14.9) H 07/24/24 16:21 INR 1.11 (0.8-1.2) 07/24/24 16:21 APTT 30.9 SECONDS (23.9-36.7) 07/24/24 16:21 Sodium 143 mmol/L (136-145) 07/26/24 02:43 Potassium 3.7 mmol/L (3.5-5.1) 07/26/24 02:43 Chloride 112 mmol/L (98-107) H 07/26/24 02:43 Carbon Dioxide 25 mmol/L (22-29) 07/26/24 02:43 Anion Gap 9.7 (5-19) 07/26/24 02:43 BUN 17 mg/dL (8-23) 07/26/24 02:43 Creatinine 0.7 mg/dL (0.7-1.2) 07/26/24 02:43 GFR Calculation Not Reportable 07/26/24 02:43 Glucose 89 mg/dL (65-115) 07/26/24 02:43 Calculated Osmolality 297 mOsm/kg (285-295) H 07/26/24 02:43 Calcium 8.6 mg/dL (8.5-10.5) 07/26/24 02:43 Magnesium 1.9 mg/dL (1.7-2.3) 07/26/24 02:43 Total Bilirubin 0.5 mg/dL (0.15-1.2) 07/24/24 16:21 AST 24 U/L (0-40) 07/24/24 16:21 ALT 13 U/L (0-41) 07/24/24 16:21 Alkaline Phosphatase 76 U/L (40-130) 07/24/24 16:21 Troponin T Baseline 26 ng/L (0-15) H 07/24/24 16:21 Troponin T 120 Minute 23.29 ng/L (0-15) H 07/24/24 18:20 Delta Troponin T -2.71 ABS# (0-10) L 07/24/24 18:20 Total Protein 5.4 g/dL (6.6-8.7) L 07/24/24 16:21 Albumin 3.3 g/dL (3.5-5.2) L 07/24/24 16:21 Globulin 2.1 g/dL (1.3-4.6) 07/24/24 16:21 TSH 2.92 uIU/mL (0.27-4.20) 07/24/24 16:21 Free T4 0.95 ng/dL (0.82-1.77) 07/24/24 16:21 Vitals Last Vital Signs Temp 97.6 F 07/26/24 11:30 Pulse 70 07/26/24 11:30 Resp 14 07/26/24 11:30 BP 93/57 07/26/24 11:30 Pulse Ox 95 07/26/24 11:30 O2 Del Method Room Air 07/26/24 11:30 Discharge Plan Discharge Patient Disposition: Home Condition: Stable Prescriptions: Continued krill oil 500 mg capsule 500 mg PO QPM nitroglycerin [Nitrostat] 0.4 mg tablet, sublingual 0.4 mg SUBLINGUAL Q5M PRN (Reason: chest pain) Qty: 90 3RF furosemide 20 mg tablet 20 mg PO DAILY PRN (Reason: edema) Qty: 30 0RF atorvastatin 40 mg tablet 40 mg PO QPM clopidogrel 75 mg tablet 75 mg PO QAM tamsulosin 0.4 mg capsule 0.4 mg PO BID fluvoxamine 100 mg tablet 100 mg PO TID finasteride 5 mg tablet 5 mg PO QAM fenofibrate nanocrystallized 145 mg tablet 145 mg PO QAM Ocuvite Adult 50 Plus 250 mg (90 mg-160 mg) Capsule 1 cap PO QAM lisinopril 20 mg tablet 20 mg PO DAILY diphenhydramine-acetaminophen [Tylenol PM Extra Strength] 25-500 mg Tablet 1 tab PO Q6H PRN (Reason: Pain) Discharge Orders: Discharge Order (Routine); Ordered 07/26/24 Ordered By: Ashley Bui Other Ambulatory Orders: MCT/Event Monitor 21 Days (Routine) Timeframe: 3 Weeks Facility: [facility] - Location: Radiology Ordered By: Vicente Pelayo Referrals: Yoana Degroot MD [Physician] - 08/07/24 3:30 pm Parris Ashby MD [Primary Care Provider] - (We have notified your physician's clinic of the need for a follow-up appointment to be scheduled. If you have not heard from them within the next 2 business days, please call them directly. ) Discharge Diet: Advance as tolerated Discharge Activity: Resume usual activity Patient Instructions: Transient Ischemic Attack (GEN), Bradycardia (GEN), Opioid Safety, Stroke Stoplight Activity Restrictions/Additional Instructions: [facility]MENT [facility] IS JULY 29 AT 14:00 Discharge Attestations Time Spent in Discharge Care*: less than 30 min Quality Metrics Clinical Quality Measures [ No reported AMI, CVA or VTE this stay] Coding Level of Care Code Acute Code for Chg Fwd Diagnoses Bradyarrhythmia I49.8 TIA (transient ischemic attack) G45.9 Atherosclerosis of other coronary artery bypass graft without angina pectoris I25.810 Associated angina: without angina Coronary Disease-Associated Artery/Lesion type: bypass graft, other Mixed hyperlipidemia E78.2 Hyperlipidemia type: mixed hyperlipidemia Essential hypertension I10 Hypertension type: essential hypertension Ventricular arrhythmia I49.9
[2024-07-26 11:40] VITALS: BP 93/57; PULSE 70; RESP 14; TEMP 36.4; O2SAT 95
== END 2024-07-26 12:08 | disposition home or self-care (01) ==
LOC: ER 20:10 → MEDSURG 20:52
PROVIDERS: Admitting Provider Internal Medicine; Emergency Provider Emergency Medicine; PCP Family Medicine; Visit Provider Internal Medicine
DX: I49.9 Cardiac arrhythmia, unspecified (principal); I25.810 Atherosclerosis of coronary artery bypass graft(s) without angina pectoris; E78.2 Mixed hyperlipidemia; I10 Essential (primary) hypertension; I95.1 Orthostatic hypotension; K21.9 Gastro-esophageal reflux disease without esophagitis; Z82.8 Family history of other disabilities and chronic diseases leading to disablement, not elsewhere classified; Z82.49 Family history of ischemic heart disease and other diseases of the circulatory system; Z95.1 Presence of aortocoronary bypass graft; Z79.01 Long term (current) use of anticoagulants; Z79.02 Long term (current) use of antithrombotics/antiplatelets; N40.0 Benign prostatic hyperplasia without lower urinary tract symptoms; M19.90 Unspecified osteoarthritis, unspecified site
CPT/HCPCS: 36415; 70551; 80048; 80053; 83735; 84439; 84443; 84484; 85025; 85610; 85730; 93005; 93306; 93880; 96372; 99285; G0378; J1650; J9999

== ENCOUNTER → 2024-08-01 08:53 | Outpatient (BNVA) | payer MEDICARE, SELFPAY | PROVIDERS: PCP Family Medicine; Visit Provider Student in an Organized Health Care Education/Training Program | DX: M19.012 Primary osteoarthritis, left shoulder (principal) | CPT/HCPCS: 20610; 77002; J3301; J9999 ==

== ENCOUNTER → 2024-08-07 15:08 | Outpatient (BNVA) | payer MEDICARE, SELFPAY | PROVIDERS: PCP Family Medicine; Visit Provider Internal Medicine Cardiovascular Disease | DX: R00.1 Bradycardia, unspecified (principal); I25.810 Atherosclerosis of coronary artery bypass graft(s) without angina pectoris; Z79.01 Long term (current) use of anticoagulants; I10 Essential (primary) hypertension; E78.2 Mixed hyperlipidemia; Z95.1 Presence of aortocoronary bypass graft | CPT/HCPCS: 99214 ==

== ENCOUNTER → 2024-09-25 11:13 | Outpatient (BNVA) | payer MEDICARE, SELFPAY | PROVIDERS: PCP Family Medicine; Visit Provider Family Medicine | DX: I25.810 Atherosclerosis of coronary artery bypass graft(s) without angina pectoris (principal); I10 Essential (primary) hypertension; E78.2 Mixed hyperlipidemia | CPT/HCPCS: 80053; 80061; 85025 ==

== ENCOUNTER → 2024-10-23 13:39 | Outpatient (BNVA) | payer MEDICARE, SELFPAY | PROVIDERS: PCP Family Medicine; Visit Provider Family Medicine | DX: D75.89 Other specified diseases of blood and blood-forming organs (principal) | CPT/HCPCS: 82607; 82746 ==

== ENCOUNTER → 2024-11-12 08:37 | Outpatient (BNVA) | payer MEDICARE, SELFPAY | PROVIDERS: PCP Family Medicine; Visit Provider Student in an Organized Health Care Education/Training Program | DX: M19.012 Primary osteoarthritis, left shoulder (principal) | CPT/HCPCS: 99213 ==

== ENCOUNTER → 2024-11-14 10:42 | Outpatient (BNVA) | payer MEDICARE, SELFPAY | PROVIDERS: PCP Family Medicine; Visit Provider Physician Assistant | DX: M17.11 Unilateral primary osteoarthritis, right knee (principal); M25.561 Pain in right knee | CPT/HCPCS: 20610; 73560; 73565; 99213 ==

== ENCOUNTER → 2025-02-10 13:25 | Outpatient (BNVA) | payer MEDICARE, SELFPAY | PROVIDERS: PCP Family Medicine; Visit Provider Family Medicine | DX: I25.810 Atherosclerosis of coronary artery bypass graft(s) without angina pectoris (principal); E78.2 Mixed hyperlipidemia | CPT/HCPCS: 80061 ==

== ENCOUNTER → 2025-02-17 11:36 | Outpatient (BNVA) | payer MEDICARE, SELFPAY | PROVIDERS: PCP Family Medicine; Visit Provider Internal Medicine Cardiovascular Disease | DX: I25.810 Atherosclerosis of coronary artery bypass graft(s) without angina pectoris (principal); I49.8 Other specified cardiac arrhythmias; I10 Essential (primary) hypertension; E78.5 Hyperlipidemia, unspecified; Z79.02 Long term (current) use of antithrombotics/antiplatelets; Z95.1 Presence of aortocoronary bypass graft | CPT/HCPCS: 99214 ==